=== PATIENT | female | born 1995 | race Caucasian/White ===

== ENCOUNTER 2017-11-04 02:57 | Emergency (ER) | payer BC, SELFPAY ==
[2017-11-04 03:05] VITALS: BP 120/80; PULSE 80; RESP 18; TEMP 36.8; O2SAT 99; BMI 21.9
--- NOTE | 2017-11-04 03:14 | HMH.EDLOEX ---
ED Disposition Clinical Impression: Leg pain, right Disposition: Home, Self-Care Condition on Discharge: Good Instructions: DI for Leg Pain Additional Instructions: will obtain doppler later this am - Critical Care Critical Care Time: No Attestation: On , the high probability of a clinically significant, sudden or life threatening deterioration of the following system(s) required my full and direct attention, intervention and personal management. The time I documented below is in addition to time spent performing reported procedures but includes the following listed in this critical care notation. Medical Decision Making - Medical Records Medical records reviewed: Yes: I reviewed the patient's medical records. Vital Signs: 11/04/17 03:05 Temperature 98.3 F Temperature Source Oral Pulse Rate [Right Radial] 80 Respiratory Rate 18 Blood Pressure [Right Arm] 120/80 Blood Pressure Mean [Right Arm] 93 Blood Pressure Source [Right Arm] Automatic Cuff Blood Pressure Position [Right Arm] Sitting 02 Sat by Pulse Oximetry 99 Oxygen Delivery Method Room Air - Lab Data Lab results reviewed: Yes: I reviewed the patient's lab results. Lab Results 11/04/17 03:30: WBC 6.3, RBC 4.67, Hgb 14.4, Hct 43.4, MCV 93.0, MCH 30.8, MCHC 33.1, RDW 12.1, Plt Count 214, MPV 8.5, Neut % (Auto) 47.8, Lymph % (Auto) 45.2, [place] % (Auto) 5.2, Eos % (Auto) 1.5, Baso % (Auto) 0.3, Neut # (Auto) 3.0, Lymph # (Auto) 2.8, [place] # (Auto) 0.3, Eos # (Auto) 0.1, Baso # (Auto) 0.0 11/04/17 03:30: Urine HCG, Qual Negative Result diagrams: 11/04/17 03:30 Orders (Tests/Meds): ED MEDICATIONS Discontinued Medications Generic Name Dose Route Start Last Admin Trade Name Freq PRN Reason Stop Dose Admin Enoxaparin Sodium 60 mg 11/04/17 03:28 11/04/17 03:51 Lovenox 60mg/0.6ml Syringe SQ 11/04/17 03:29 60 mg ONCE ONE Administration ORDERS Category Date Time Status BMP [Basic Metabolic Panel] Stat Lab 11/04/17 03:30 Received D-Dimer Stat Lab 11/04/17 03:30 Received - Ru Inquiry Pt receiving controlled substance: No Lower Extremity Injury HPI - General Stated Complaint: Pain in right calff Time Seen by Provider: 11/04/17 03:14 Mode of Arrival: Ambulatory Source of Information: Patient, Medical Record - History of Present Illness HPI Narrative: 3 day hx of rt calf pain with no sob -no hx of dvt but uses bcp complaint: other Place: home Severity: moderate - Related Data Home Medications Medication Instructions Recorded Confirmed No Known Home Medications [No 11/04/17 11/04/17 Known Home Medications] Allergies Allergy/AdvReac Type Severity Reaction Status Date / Time chlorhexidine [CHLORHEXIDINE] Allergy Unknown I-RASH Verified 11/04/17 03:15 diphenhydramine Allergy Unknown UNABLE TO Verified 11/04/17 03:15 [From BENADRYL] UR[facility]ATE [facility] History I have reviewed the patient's past medical history: Yes ROS Obtained: Yes All systems reviewed & no additional complaints - Constitutional Constitutional: Denies fever(s) - Eyes Eyes: Denies change in vision - ENT Ears, Nose, Mouth, and Throat: Denies sore throat - Cardiovascular Cardiovascular: Denies chest pain at rest, Denies dyspnea, Denies shortness of breath when lying down - Respiratory Respiratory: No cough, No pain on inspiration - Gastrointestinal Gastrointestingal: Denies: abdominal pain - Musculoskeletal Musculoskeletal: Denies joint pain - Integumentary/Breasts Skin/Breast: Denies rash - Neurologic Neurologic: Denies seizure-like activity Physical Exam - General General appearance: alert, in no apparent distress - Head Head exam: normocephalic - Eye Eye exam: Present: PERRL, EOMI - ENT ENT exam: Absent: mucous membranes moist - Neck Neck exam: Absent: trachea midline - Respiratory Respiratory exam: Absent: respiratory distress - Cardiovascular Cardiovascular exam
--- NOTE | 2017-11-04 03:17 | ED_ITS ---
ED Disposition Clinical Impression: Leg pain, right Disposition: Home, Self-Care Condition on Discharge: Good Instructions: DI for Leg Pain Additional Instructions: will obtain doppler later this am - Critical Care Critical Care Time: No Attestation: On , the high probability of a clinically significant, sudden or life threatening deterioration of the following system(s) required my full and direct attention, intervention and personal management. The time I documented below is in addition to time spent performing reported procedures but includes the following listed in this critical care notation. Medical Decision Making - Medical Records Medical records reviewed: Yes: I reviewed the patient's medical records. Vital Signs: 11/04/17 03:05 Temperature 98.3 F Temperature Source Oral Pulse Rate [Right Radial] 80 Respiratory Rate 18 Blood Pressure [Right Arm] 120/80 Blood Pressure Mean [Right Arm] 93 Blood Pressure Source [Right Arm] Automatic Cuff Blood Pressure Position [Right Arm] Sitting 02 Sat by Pulse Oximetry 99 Oxygen Delivery Method Room Air - Lab Data Lab results reviewed: Yes: I reviewed the patient's lab results. Lab Results 11/04/17 03:30: WBC 6.3, RBC 4.67, Hgb 14.4, Hct 43.4, MCV 93.0, MCH 30.8, MCHC 33.1, RDW 12.1, Plt Count 214, MPV 8.5, Neut % (Auto) 47.8, Lymph % (Auto) 45.2 , [place] % (Auto) 5.2, Eos % (Auto) 1.5, Baso % (Auto) 0.3, Neut # (Auto) 3.0, Lymph # (Auto) 2.8, [place] # (Auto) 0.3, Eos # (Auto) 0.1, Baso # (Auto) 0.0 11/04/17 03:30: Urine HCG, Qual Negative Result diagrams: 11/04/17 03:30 Orders (Tests/Meds): ED MEDICATIONS Discontinued Medications Generic Name Dose Route Start Last Admin Trade Name Freq PRN Reason Stop Dose Admin Enoxaparin Sodium 60 mg 11/04/17 03:28 11/04/17 03:51 Lovenox 60mg/0.6ml Syringe SQ 11/04/17 03:29 60 mg ONCE ONE Administration ORDERS Category Date Time Status BMP [Basic Metabolic Panel] Stat Lab 11/04/17 03:30 Received D-Dimer Stat Lab 11/04/17 03:30 Received - Ru Inquiry Pt receiving controlled substance: No Lower Extremity Injury HPI - General Stated Complaint: Pain in right calff Time Seen by Provider: 11/04/17 03:14 Mode of Arrival: Ambulatory Source of Information: Patient, Medical Record - History of Present Illness HPI Narrative: 3 day hx of rt calf pain with no sob -no hx of dvt but uses bcp complaint: other Place: home Severity: moderate - Related Data Home Medications Medication Instructions Recorded Confirmed No Known Home Medications [No 11/04/17 11/04/17 Known Home Medications] Allergies Allergy/AdvReac Type Severity Reaction Status Date / Time chlorhexidine [CHLORHEXIDINE] Allergy Unknown I-RASH Verified 11/04/17 03:15 diphenhydramine Allergy Unknown UNABLE TO Verified 11/04/17 03:15 [From BENADRYL] UR[facility]ATE [facility] History I have reviewed the patient's past medical history: Yes ROS Obtained: Yes All systems reviewed & no additional complaints - Constitutional Constitutional: Denies fever(s) - Eyes Eyes: Denies change in vision - ENT Ears, Nose, Mouth, and Throat: Denies sore throat - Cardiovascular
--- NOTE | 2017-11-04 03:32 | PC.NURSE ---
RT made aware of venous doppler out patient order. RT to call pt in the morning to schedule an appointment.
--- NOTE | 2017-11-04 03:32 | PC.NURSE ---
dose confirmed with pharmacy for lovenox
[2017-11-04 03:45] LABS: Urine Pregnancy, HCG Qual. Negative (Negative)
[2017-11-04 03:48] LABS: Basophils % 0.3 % (0.1-2.0); Eosinophils # 0.1 K/mm3 (0.0-0.4); Eosinophils % 1.5 % (0.1-12.0); Hematocrit 43.4 % (37.0-47.0); Hemoglobin 14.4 g/dL (12.2-16.2); Lymphocytes # 2.8 K/mm3 (0.7-4.5); Lymphocytes % 45.2 K/mm3 (10-50); Mean Corpuscular HGB Conc 33.1 g/dL (31.8-35.4); Mean Corpuscular Hemoglobin 30.8 pg (27.0-31.2); Mean Platelet Volume 8.5 fl (7.4-10.4); Monocytes # 0.3 K/mm3 (0.1-1.0); Monocytes % 5.2 % (1.7-9.3); Neutrophils % 47.8 % (37.0-80.0); Platelet Count 214 K/mm3 (142-424); Red Blood Count 4.67 M/mm3 (4.20-5.40); Red Cell Distribution Width 12.1 % (11.5-17.5); White Blood Count 6.3 K/mm3 (4.8-10.8)
[2017-11-04 03:54] LABS: Anion Gap 16.8 mEq/L (5-15); Blood Urea Nitrogen 10 mg/dL (7-18); Carbon Dioxide 23 mmol/L (21.0-32.0); Chloride 106 mmol/L (98-107); Creatinine Clearance Estimated 129 mL/min (0-300); Creatinine,Serum 0.62 mg/dL (0.55-1.02); Estimated Glomerular Filt Rate 119 ml/min (>60); GFR (African American) 144 ML/MIN (>60); Glucose 85 mg/dL (74-106); Potassium 3.8 mmoL/L (3.5-5.1); Sodium 142 mmol/L (136-145)
[2017-11-04 04:01] VITALS: BP 122/80; PULSE 80; RESP 18; TEMP 36.8; O2SAT 99
[2017-11-04 04:20] LABS: D-Dimer < 100 (0-400)
== END 2017-11-04 04:01 | disposition home or self-care (01) ==
PROVIDERS: Emergency Provider Emergency Medicine
DX: M79.661 Pain in right lower leg (principal)
CPT/HCPCS: 80048; 81025; 85025; 85378; 96372; 99281; 99282

== ENCOUNTER → 2017-11-04 11:23 | Outpatient (CLI) | payer BC, SELFPAY ==
--- NOTE | 2017-11-04 11:26 | NVE_ITS ---
Venous Exam Indications: 729.5 Pain in limb. IMPRESSIONS 1. There is no evidence of significant Reflux. 2. No evidence of deep or superficial vein thrombosis involving the right lower extremity Right lower extremity venous duplex evaluation. Doppler flow study including spectral analysis, color and xavier scale imaging. Location: Vascular laboratory. Patient status: Outpatient. Tables: Venous flow and imaging: + +-------+ + Location Overall Flow properties + +-------+ + Right common femoral Patent Normal phasicity; spontaneous; normal augmentation; compressible + +-------+ + Right saphenofemoral junction Patent Compressible + +-------+ + Right profunda femoral Patent Compressible + +-------+ + Right femoral Patent Normal phasicity; spontaneous; normal augmentation; compressible + +-------+ + Right greater saphenous Patent Normal phasicity; spontaneous; normal augmentation; compressible + +-------+ + Right popliteal Patent Normal phasicity; spontaneous; normal augmentation; compressible + +-------+ + Right posterior tibial Patent Compressible + +-------+ + Right peroneal Patent Compressible + +-------+ + Right gastrocnemius Patent Compressible + +-------+ + Right soleal Patent Compressible + +-------+ + (Report amended ) Electronically signed by: Adin Mcbride [id number]
== END ==
PROVIDERS: PCP Emergency Medicine; Visit Provider Emergency Medicine
DX: M79.661 Pain in right lower leg (principal)
CPT/HCPCS: 93971

== ENCOUNTER 2017-11-05 20:19 | Emergency (ER) | payer BC, SELFPAY ==
[2017-11-05 20:23] VITALS: BP 135/85; PULSE 90; RESP 16; TEMP 36.8; O2SAT 100; BMI 21.9
--- NOTE | 2017-11-05 21:36 | HMH.EDLOEX ---
ED Disposition Clinical Impression: Leo's cyst of knee Qualifiers: Laterality: right Qualified Code(s): M71.21 - Synovial cyst of popliteal space [Leo], right knee Disposition: Home, Self-Care Condition on Discharge: Good Additional Instructions: see pcp or ortho for follow up Referrals: Jimmie Vogel MD [Primary Care Provider] - - Critical Care Critical Care Time: No Attestation: On 11/05/17, the high probability of a clinically significant, sudden or life threatening deterioration of the following system(s) required my full and direct attention, intervention and personal management. The time I documented below is in addition to time spent performing reported procedures but includes the following listed in this critical care notation. Medical Decision Making Vital Signs: 11/05/17 20:23 Temperature 98.2 F Temperature Source Oral Pulse Rate [Right Brachial] 90 Respiratory Rate 16 Blood Pressure [Right Arm] 135/85 Blood Pressure Mean [Right Arm] 101 Blood Pressure Source [Right Arm] Automatic Cuff Blood Pressure Position [Right Arm] Sitting 02 Sat by Pulse Oximetry 100 Oxygen Delivery Method Room Air - Ru Inquiry Pt receiving controlled substance: No Lower Extremity Injury HPI - General Chief Complaint: Extremity Injury, Lower Stated Complaint: leg pain and swelling, poss blood clot Time Seen by Provider: 11/05/17 21:36 Mode of Arrival: Ambulatory Source of Information: Patient, Medical Record Limitations: No Limitations Description of Symptoms (Recalled from ER Triage Doc. by RN): RIGHT LOWER LEG PAIN AND SWELLING. DOPPLER DONE MONDAY MORNING THAT WAS NEGATIVE FOR DVT - History of Present Illness HPI Narrative: pt with persistant pain behind rt knee - has been seen and had neg doppler - no trauma or swollen jt complaint: other (no injury) Injury: Right: knee Type of Injury: unknown Place: home Severity: mild - Related Data Home Medications Medication Instructions Recorded Confirmed No Known Home Medications [No 11/04/17 11/04/17 Known Home Medications] Allergies Allergy/AdvReac Type Severity Reaction Status Date / Time chlorhexidine [CHLORHEXIDINE] Allergy Unknown I-RASH Verified 11/04/17 03:15 diphenhydramine Allergy Unknown UNABLE TO Verified 11/04/17 03:15 [From BENADRYL] UR[facility] History I have reviewed the patient's past medical history: Yes - *Social History Alcohol Intake: never - Psychiatric History Expresses thoughts of harming self/others: None Suicide Plan Description: No Plan ROS Obtained: Yes All systems reviewed & no additional complaints - Constitutional Constitutional: Denies fever(s) - Eyes Eyes: Denies change in vision - ENT Ears, Nose, Mouth, and Throat: Denies sore throat - Cardiovascular Cardiovascular: Denies chest pain - Respiratory Respiratory: No chest congestion - Gastrointestinal Gastrointestingal: Denies: abdominal pain - Musculoskeletal Musculoskeletal: Reports as per HPI, Denies joint pain, Denies joint swelling, Denies limited range of motion, Reports other (pain behind rt knee ) - Integumentary/Breasts Skin/Breast: Denies rash - Neurologic Neurologic: Denies seizure-like activity Physical Exam - General General appearance: alert, in no apparent distress - Head Head exam: normocephalic - Eye Eye exam: Present: PERRL, EOMI - ENT ENT exam: Present: normal oropharynx - Neck Neck exam: Present: trachea midline - Respiratory Respiratory exam: Absent: respiratory distress - Cardiovascular Cardiovascular exam: Present: regular rate - Abdominal Exam Abdominal exam: Present: soft - Expanded Lower Extremity Exam Right Knee exam: Present: normal inspection, full ROM, other (tender post popiteal fossa but no def bakers cyst) - Neurological Exam Neurological exam: Present: alert, oriented X3, CN II-XII intact - Psychiatric Psychiatric exam: Present: benito
--- NOTE | 2017-11-05 21:39 | ED_ITS ---
ED Disposition Clinical Impression: Leo's cyst of knee Qualifiers: Laterality: right Qualified Code(s): M71.21 - Synovial cyst of popliteal space [Leo], right knee Disposition: Home, Self-Care Condition on Discharge: Good Additional Instructions: see pcp or ortho for follow up Referrals: Jimmie Vogel MD [Primary Care Provider] - - Critical Care Critical Care Time: No Attestation: On 11/05/17, the high probability of a clinically significant, sudden or life threatening deterioration of the following system(s) required my full and direct attention, intervention and personal management. The time I documented below is in addition to time spent performing reported procedures but includes the following listed in this critical care notation. Medical Decision Making Vital Signs: 11/05/17 20:23 Temperature 98.2 F Temperature Source Oral Pulse Rate [Right Brachial] 90 Respiratory Rate 16 Blood Pressure [Right Arm] 135/85 Blood Pressure Mean [Right Arm] 101 Blood Pressure Source [Right Arm] Automatic Cuff Blood Pressure Position [Right Arm] Sitting 02 Sat by Pulse Oximetry 100 Oxygen Delivery Method Room Air - Ru Inquiry Pt receiving controlled substance: No Lower Extremity Injury HPI - General Chief Complaint: Extremity Injury, Lower Stated Complaint: leg pain and swelling, poss blood clot Time Seen by Provider: 11/05/17 21:36 Mode of Arrival: Ambulatory Source of Information: Patient, Medical Record Limitations: No Limitations Description of Symptoms (Recalled from ER Triage Doc. by RN): RIGHT LOWER LEG PAIN AND SWELLING. DOPPLER DONE MONDAY MORNING THAT WAS NEGATIVE FOR DVT - History of Present Illness HPI Narrative: pt with persistant pain behind rt knee - has been seen and had neg doppler - no trauma or swollen jt complaint: other (no injury) Injury: Right: knee Type of Injury: unknown Place: home Severity: mild - Related Data Home Medications Medication Instructions Recorded Confirmed No Known Home Medications [No 11/04/17 11/04/17 Known Home Medications] Allergies Allergy/AdvReac Type Severity Reaction Status Date / Time chlorhexidine [CHLORHEXIDINE] Allergy Unknown I-RASH Verified 11/04/17 03:15 diphenhydramine Allergy Unknown UNABLE TO Verified 11/04/17 03:15 [From BENADRYL] URINATE [facility] History I have reviewed the patient's past medical history: Yes - *Social History Alcohol Intake: never - Psychiatric History Expresses thoughts of harming self/others: None Suicide Plan Description: No Plan ROS Obtained: Yes All systems reviewed & no additional complaints - Constitutional Constitutional: Denies fever(s) - Eyes Eyes: Denies change in vision - ENT Ears, Nose, Mouth, and Throat: Denies sore throat - Cardiovascular Cardiovascular: Denies chest pain - Respiratory Respiratory: No chest congestion - Gastrointestinal Gastrointestingal: Denies: abdominal pain - Musculoskeletal Musculoskeletal: Reports as per HPI, Denies joint pain, Denies joint swelling, Denies limited range of motion, Reports other (pain behind rt knee ) - Integumentary/Breasts Skin/Breast: Denies rash - Neurologic Neurologic: Denies seizure-like activity Physical Exam - General General a
[2017-11-05 21:49] VITALS: BP 00/00; PULSE 0; RESP 0; TEMP -17.7; TEMP 0
== END 2017-11-05 21:49 | disposition home or self-care (01) ==
PROVIDERS: Emergency Provider Emergency Medicine; PCP Emergency Medicine
DX: M71.21 Synovial cyst of popliteal space [Baker], right knee (principal)
CPT/HCPCS: 99281

== ENCOUNTER → 2018-02-21 08:59 | Outpatient (CLI) | payer BC, SELFPAY | PROVIDERS: PCP Nurse Practitioner Family; Visit Provider Internal Medicine | DX: R07.89 Other chest pain (principal); R06.02 Shortness of breath; R94.31 Abnormal electrocardiogram [ECG] [EKG]; R00.2 Palpitations; I51.7 Cardiomegaly | CPT/HCPCS: 93017; 93306 ==

== ENCOUNTER 2018-04-19 14:10 | Observation (INO) ==
[2018-04-19 14:39] LABS: Basophils % 0.3 % (0.1-2.0); Eosinophils % 0.2 % (0.1-12.0); Hematocrit 42.3 % (37.0-47.0); Hemoglobin 14.2 g/dL (12.2-16.2); Lymphocytes # 2.2 K/mm3 (0.7-4.5); Lymphocytes % 22.7 K/mm3 (10-50); Mean Corpuscular HGB Conc 33.5 g/dL (31.8-35.4); Mean Corpuscular Hemoglobin 31.3 pg (27.0-31.2); Mean Corpuscular Volume 93.3 fl (81-99); Mean Platelet Volume 7.6 fl (7.4-10.4); Monocytes # 0.4 K/mm3 (0.1-1.0); Monocytes % 3.9 % (1.7-9.3); Neutrophils # 7.2 K/mm3 (1.8-7.8); Neutrophils % 72.9 % (37.0-80.0); Platelet Count 260 K/mm3 (142-424); Red Blood Count 4.53 M/mm3 (4.20-5.40); Red Cell Distribution Width 12.3 % (11.5-17.5); White Blood Count 9.8 K/mm3 (4.8-10.8)
[2018-04-19 14:52] LABS: Albumin Level 4.2 gm/dL (3.4-5.0); Albumin/Globulin Ratio 1.2 (1.1-1.8); Anion Gap 14.7 mEq/L (5-15); Bilirubin,Total 0.8 mg/dL (0.2-1.0); Calcium 9.2 mg/dL (8.5-10.1); Globulin 3.5 gm/dl (1.3-3.2); Potassium 3.7 mmoL/L (3.5-5.1); Total Protein,Serum 7.7 gm/dL (6.4-8.2)
--- NOTE | 2018-04-19 15:08 | Emergency Department Note ---
ED Disposition Clinical Impression: Dehydration, UTI (urinary tract infection), First trimester , Hyperemesis Disposition: Still a Patient Condition on Discharge: Fair Instructions: DI for Diarrhea and Traveler's Diarrhea -- Adult, DI for Diarrhea and Traveler's Diarrhea -- Child, DI for Nausea -- Adult, DI for Nausea -- Child Additional Instructions: She will be admitted Dr. Galeas's service for IV fluids IV antibiotics and IV antiemetics. Referrals: Nito Engel APRN [Primary Care Provider] - - Critical Care Critical Care Time: No Attestation: On 04/19/18, the high probability of a clinically significant, sudden or life threatening deterioration of the following system(s) required my full and direct attention, intervention and personal management. The time I documented below is in addition to time spent performing reported procedures but includes the following listed in this critical care notation. Medical Decision Making - Ru Inquiry Pt receiving controlled substance: No Ru was queried for this patient: No Vital Signs: 04/19/18 14:15 Temperature 98.2 F Temperature Source Oral Pulse Rate [Left Radial] 98 H Respiratory Rate 18 Blood Pressure [Right Arm] 116/62 Blood Pressure Mean [Right Arm] 80 Blood Pressure Source [Right Arm] Automatic Cuff Blood Pressure Position [Right Arm] Sitting 02 Sat by Pulse Oximetry 98 Oxygen Delivery Method Room Air - Lab Data Lab Results 04/19/18 14:30: WBC 9.8, RBC 4.53, Hgb 14.2, Hct 42.3, MCV 93.3, MCH 31.3 H, MCHC 33.5, RDW 12.3, Plt Count 260, MPV 7.6, Neut % (Auto) 72.9, Lymph % (Auto) 22.7, [place] % (Auto) 3.9, Eos % (Auto) 0.2, Baso % (Auto) 0.3, Neut # (Auto) 7.2 , Lymph # (Auto) 2.2, [place] # (Auto) 0.4, Eos # (Auto) 0.0, Baso # (Auto) 0.0 04/19/18 14:30: Sodium 139, Potassium 3.7, Chloride 105, Carbon Dioxide 23, Anion Gap 14.7, BUN 6 L, Creatinine 0.52 L, Estimated Creat Clear 151, Estimated GFR 146, Est GFR ( Amer) 177, Glucose 85, Calcium 9.2, Total Bilirubin 0.8, AST 8 L, ALT 22, Alkaline Phosphatase 69, Total Protein 7.7, Albumin 4.2, Globulin 3.5 H, Albumin/Globulin Ratio 1.2 04/19/18 16:25: Urine Color Yellow, Urine Appearance Clear, Urine pH 6.0, Ur Specific [place] 1.020, Urine Protein Negative, Urine Glucose (UA) Negative, Urine Ketones 3+, Urine Blood 1+, Urine Nitrate Negative, Urine Bilirubin Negative, Urine Urobilinogen 1.0, Ur Leukocyte Esterase Negative, Urine RBC 3-5 , Urine WBC None, Ur Squamous Epith Cells Occasional, Urine Bacteria Trace, Urine Mucus 3+ Result diagrams: 04/19/18 14:30 04/19/18 14:30 Orders (Tests/Meds): ED MEDICATIONS Generic Name Dose Route Start Last Admin Trade Name Freq PRN Reason Stop Dose Admin Ceftriaxone Sodium 1 gm/ 50 mls @ 100 mls/hr 04/19/18 15:15 04/19/18 16:16 Sodium Chloride IV 05/03/18 15:14 100 mls/hr Q24H MARIAMA Administration Protocol Discontinued Medications Generic Name Dose Route Start Last Admin Trade Name Freq PRN Reason Stop Dose Admin Acetaminophen 650 mg 04/19/18 14:51 04/19/18 16:14 Acetaminophen 650mg Suppository RC 04/19/18 14:52 650 mg ONCE ONE Administration Sodium Chloride 1,000 mls @ 999 mls/hr 04/19/18 14:30 04/19/18 14:25 Sod Chlor 0.9% 1000ml Bag IV 04/19/18 15:30 999 mls/hr .[id number] MARIAMA Administration Promethazine HCl 12.5 mg 04/19/18 14:51 04/19/18 16:14 Phenergan 25mg/Ml 1ml Vial IV 04/19/18 14:52 12.5 mg ONCE ONE Administration Sodium Chloride 25 ml 04/19/18 14:51 04/19/18 16:14 Sod Chlor 0.9% 25ml Bag IV 04/19/18 14:52 25 ml ONCE ONE Administration Medical Decision Narrative: She received IV fluids anti-emetics was unable to tolerate p.o. intake her urine was +3+ ketones, I spoke with her about admission and she was agreeable. Called Dr. Galeas who agreed to admit the patient for IV fluid therapy antiemetic therapy and IV antibiotics. Nausea/Vomiting/Diarrhea HPI - General Chief complaint: Nausea/Vomiting/Diarrhea Stated complaint: vomiting over 24 hr 7 weeks s Time Seen by Provider: 04/19/18 14:30 Mode of Arrival: Ambulatory Limitations: No Limitations Description of Symptoms (Recalled from ER Triage Doc. by RN): PT states that she is unable to keep any fluids or soilds down for over 24 hours due to vomiting. Feeling nauseated and has headache - History of Present Illness HPI Narrative: 22 years old white female 4 para 3 A0 old delivered by . She is 7 weeks and has been experiencing morning sickness and vomited once in the morning. Since yesterday she has been having hyperemesis gravidarum and vomited 12 times was unable to keep liquids food or medications. She was seen by her bell maker in [place] 3 days ago and was diagnosed with UTI given a prescription for amoxicillin but she has been unable to keep it since yesterday. She denies having fever chills hematemesis coffee-ground emesis melanotic stool or bleeding per rectum. She denies having abdominal pain or diarrhea, he denies having dysuria hematuria or frequency. MD complaint: nausea, vomiting Onset (ago): hour(s) (Worse since yesterday) Description of Vomiting: food contents, watery Associated Abdominal Pain: No Relieving factors: none Exacerbating factors: none Associated symptoms: denies other symptoms - Related Data Home Medications Medication Instructions Recorded Confirmed Vit37/Iron/Folic Acid 1 each PO DAILY 04/19/18 04/19/18 [Prenata Chewable Tablet] Allergies Allergy/AdvReac Type Severity Reaction Status Date / Time chlorhexidine [CHLORHEXIDINE] Allergy Unknown I-RASH Verified 02/13/18 13:20 diphenhydramine Allergy Unknown UNABLE TO Verified 02/13/18 13:20 [From BENADRYL] URINATE [facility] History I have reviewed the patient's past medical history: Yes Medical History: Denies:: Diabetes Mellitus Type 1, Diabetes Mellitus Type 2 Other Medical History: Reports: Other Comment: Leo's cyst of right knee Other Surgeries: Yes: (x3), Hernia Repair (x 2 ), Other Amputation: No Fractures: No Comment: dental surgery, Cyst off left ankle - Social History Smoking Status: Never smoker Alcohol Intake: never Substance Use Type: denies use Occupational Status: student Housing: house Household Members: spouse, children - Psychiatric History Expresses thoughts of harming self/others: None Suicide Plan Description: No Plan Family Hx:: Heart Attack, Hypertension, Coronary Artery Disease ROS Obtained: Yes All systems reviewed & no additional complaints Physical Exam - General General appearance: alert, in no apparent distress - Head Head exam: atraumatic, normocephalic, normal inspection - Eye Eye exam: Present: normal appearance, PERRL, EOMI. Absent: scleral icterus, nystagmus - ENT ENT exam: Present: normal exam, normal oropharynx, mucous membranes moist, TM's normal bilaterally, normal external ear exam - Neck Neck exam: Present: normal inspection, full ROM, trachea midline. Absent: tenderness, meningismus, lymphadenopathy - Chest Chest inspection: Present: normal inspection, symmetric chest wall rise. Absent : tenderness - Respiratory Respiratory exam: Present: normal lung sounds bilaterally. Absent: respiratory distress - Cardiovascular Cardiovascular exam: Present: regular rate, normal rhythm, normal heart sounds. Absent: JVD - Abdominal Exam Abdominal exam: Present: soft, normal bowel sounds, other (He did have stria prior pregnancies no abdominal pain no guarding no rigidity noted no focal tenderness no rebound no cross tenderness.). Absent: distention, tenderness, guarding, rebound, rigidity - Extremities Exam Extremities exam: Present: normal inspection, full ROM, normal capillary refill. Absent: tenderness, calf tenderness - Back Exam Back exam: Present: normal inspection. Absent: tenderness, CVA tenderness (R), CVA tenderness (L) - Neurological Exam Neurological exam: Present: alert, oriented X3, CN II-XII intact, motor sensory deficit, reflexes normal - Psychiatric Psychiatric exam: Present: normal affect, normal mood - Skin Skin exam: Present: warm, dry, intact, normal color - Lymphatic Lymphatic Findings: no adenopathy
[2018-04-19 16:34] LABS: Appearance,Urine CLEAR (Clear); Bilirubin,Urine Negative (Negative); Blood, Urine 1+ (Negative); Color,Urine YELLOW (Yellow); Glucose,Urine (UA) Negative (Negative); Ketones,Urine 3+ (Negative); Leukocyte Esterase,Urine Negative (Negative); Protein,Urine Negative (Negative)
[2018-04-19 16:51] LABS: Bacteria,Urine Trace /lpf; Mucus,Urine 3+ /lpf; Squamous Epithelial Cell,Urine Occasional #/hpf (0-5)
[2018-04-19 16:54] LABS: Microscopic, Urine URINE MICROSCOPIC (MICROSCOPIC)
--- NOTE | 2018-04-19 18:23 | History & Physical Report ---
OB - H&P: HPI Antepartum - History of Present Illness Chief complaint: Nausea vomiting and dehydration. History of present illness: She is a 22-year-old 4 para 3 who has nausea vomiting and dehydration. She is just 7 weeks gestational age. She also has a urinary tract infection. She has not been able to keep anything down for the last couple of days. She has named able to keep down water. As result of that she is dehydrated. We will admit her for rehydration. - History of Present Criteria for establishing EDC:: based on LMP only care: good care Ultrasounds: normal 1st trimester US Obstetrical complications: none Medical complications: gastrointestinal H History I have reviewed the patient's past medical history: Yes Medical History: Denies:: Diabetes Mellitus Type 1, Diabetes Mellitus Type 2 Other Medical History: Reports: Other Other Surgeries: Yes: (x3), Hernia Repair (x 2 ), Other Amputation: No Fractures: No - *Social History Smoking Status: Never smoker Alcohol Intake: never Substance Use Type: denies use Occupational Status: student Housing: house Household Members: spouse, children - Psychiatric History Expresses thoughts of harming self/others: None Suicide Plan Description: No Plan *Family Hx:: Heart Attack, Hypertension, Coronary Artery Disease Review of Systems - Review of Systems Review of systems:: pertinent systems reviewed and negative unless documented below - Constitutional Reports anorexia - *Gastrointestinal Reports nausea, Reports vomiting Meds Home Medications Medication Instructions Recorded Confirmed Type Vit37/Iron/Folic Acid 1 each PO DAILY 04/19/18 04/19/18 History [Prenata Chewable Tablet] Allergies Allergy/AdvReac Type Severity Reaction Status Date / Time chlorhexidine [CHLORHEXIDINE] Allergy Unknown I-RASH Verified 02/13/18 13:20 diphenhydramine Allergy Unknown UNABLE TO Verified 02/13/18 13:20 [From BENADRYL] URINATE OB - H&P: Exam - Physical Exam Vital signs: Temp Pulse Resp BP Pulse Ox 98.2 F 98 H 18 116/62 98 04/19/18 14:15 04/19/18 14:15 04/19/18 14:15 04/19/18 14:15 04/19/18 14:15 - Constitutional no acute distress - Routine HEENT Exam Head: Present: normocephalic - Routine Respiratory Exam Comments: She is breathing well and not using any accessory muscles. OB - Results - Labs Labs: Short CBC 04/19/18 Range/Units 14:30 WBC 9.8 (4.8-10.8) K/mm3 Hgb 14.2 (12.2-16.2) g/dL Hct 42.3 (37.0-47.0) % Plt Count 260 (142-424) K/mm3 BMP 04/19/18 14:30 Sodium 139 Potassium 3.7 Chloride 105 Carbon Dioxide 23 BUN 6 L Creatinine 0.52 L Glucose 85 Calcium 9.2 Liver Function 04/19/18 Range/Units 14:30 Total Bilirubin 0.8 (0.2-1.0) mg/dL AST 8 L (15-37) U/L ALT 22 (12-78) U/L Alkaline Phosphatase 69 (46-116) U/L Albumin 4.2 (3.4-5.0) gm/dL Urine 04/19/18 Range/Units 16:25 Urine Color Yellow (Yellow) Urine Appearance Clear (Clear) Urine pH 6.0 (5.0-8.5) Ur Specific [place] 1.020 (1.005-1.030) Urine Protein Negative (Negative) Urine Glucose (UA) Negative (Negative) OB - A/P Antepartum (1) Dehydration Current visit: Yes Status: Acute (2) First trimester Current visit: Yes Status: Acute (3) Hyperemesis Current visit: Yes Status: Acute - Additional Plan Additional Information:: We will admit her for rehydration. We will start diclegis. We will give her MVI as well. She will be followed up by Dr. Swift in the morning since I am going out of town.
--- NOTE | 2018-04-20 07:33 | Pharmacy Consult Notes ---
[facility] Pharmacy VTE Monitoring - Patient Demographics Admission date: 04/19/18 Report Date: 04/20/18 Time: 07:33 Allergies/Adverse Reactions: Patient Allergies chlorhexidine [CHLORHEXIDINE] Allergy (Unknown, Verified 02/13/18 13:20) I-RASH diphenhydramine [From BENADRYL] Allergy (Unknown, Verified 02/13/18 13:20) UNABLE TO URINATE Height: 1.63 m Weight: 56.699 kg Patient Problems: Current Active Problems Dehydration (Acute) UTI (urinary tract infection) (Acute) First trimester (Acute) Hyperemesis (Acute) - VTE Risk Labs: VTE Related Lab Results Hgb 14.2 g/dL (12.2-16.2) 04/19/18 14:30 Hct 42.3 % (37.0-47.0) 04/19/18 14:30 Plt Count 260 K/mm3 (142-424) 04/19/18 14:30 BUN 6 mg/dL (7-18) L 04/19/18 14:30 Creatinine 0.52 mg/dL (0.55-1.02) L 04/19/18 14:30 Estimated Creat Clear 151 mL/min (0-300) 04/19/18 14:30 Was VTE Risk Assessment Performed: Yes VTE Score: 0 VTE Risk Level: Very Low Risk - Prophylaxis VTE Prophylaxis Ordered?: Yes Types of VTE Prophylaxis: TEDS Knee High Location of Applied Device: Bilateral Lower Extremeties - VTE Diagnosis Confirmed Treatment or plan recommended: Continue Current Treatment
--- NOTE | 2018-04-20 14:35 | Discharge Summary ---
General - General Admission date:: 04/19/18 Discharge date: 04/20/18 HPI HPI: [address] Deidre Guzmán Approximately 7 wks with hyperemesis gravidarum admitted for IV fluids and antiemetics Doing well and ready for discharge Tolerating diet and po meds No new complaints Hospital Course Hospital Course: as per HPI Objective Vital signs: Temp Pulse Resp BP Pulse Ox 98.8 F 68 16 145/63 97 04/20/18 08:00 04/20/18 08:00 04/20/18 08:00 04/20/18 08:00 04/20/18 08:00 no acute distress - *Routine Respiratory Exam Absent: respiratory distress - *Routine Cardiovascular Exam Absent: tachycardia - *Routine Abdominal Exam Present: soft. Absent: tenderness, distended - *Routine Extremities Exam Absent: edema - Routine Back/Spine/Pelvis Exam Back/Spine: Absent: CVA tenderness - *Routine Skin Exam Absent: rash - *Routine Neurological Exam Present: alert, oriented X3 - Routine Psychiatric Exam Present: normal affect. Absent: depressed, anxious Results Labs on day of discharge: Labs from last 24 hours 04/19/18 04/19/18 04/19/18 16:25 14:30 14:30 WBC 9.8 RBC 4.53 Hgb 14.2 Hct 42.3 MCV 93.3 MCH 31.3 H MCHC 33.5 RDW 12.3 Plt Count 260 MPV 7.6 Neut % (Auto) 72.9 Lymph % (Auto) 22.7 [place] % (Auto) 3.9 Eos % (Auto) 0.2 Baso % (Auto) 0.3 Neut # (Auto) 7.2 Lymph # (Auto) 2.2 [place] # (Auto) 0.4 Eos # (Auto) 0.0 Baso # (Auto) 0.0 Sodium 139 Potassium 3.7 Chloride 105 Carbon Dioxide 23 Anion Gap 14.7 BUN 6 L Creatinine 0.52 L Estimated Creat Clear 151 Estimated GFR 146 Est GFR ( Amer) 177 Glucose 85 Calcium 9.2 Total Bilirubin 0.8 AST 8 L ALT 22 Alkaline Phosphatase 69 Total Protein 7.7 Albumin 4.2 Globulin 3.5 H Albumin/Globulin Ratio 1.2 Urine Color Yellow Urine Appearance Clear Urine pH 6.0 Ur Specific [place] 1.020 Urine Protein Negative Urine Glucose (UA) Negative Urine Ketones 3+ Urine Blood 1+ Urine Nitrate Negative Urine Bilirubin Negative Urine Urobilinogen 1.0 Ur Leukocyte Esterase Negative Urine RBC 3-5 Urine WBC None Ur Squamous Epith Cells Occasional Urine Bacteria Trace Urine Mucus 3+ DS: Diagnosis - Discharge Diagnosis (1) Dehydration Status: Acute (2) First trimester Status: Acute (3) Hyperemesis Status: Acute Discharge Plan - Patient Discharge Instructions ACTIVITY: Continue current activity DIET: regular diet - Follow up Plan Unknown provider or service follow up:: 04/20/18 14:34 Dr. Jiang ([place]) Disposition: Home, Self-Nursing Home Medications: Home Medications Medication Instructions Recorded Confirmed Type Vit37/Iron/Folic Acid 1 each PO DAILY 04/19/18 04/19/18 History [Prenata Chewable Tablet] Prescriptions/Medication Reconciliation: New Promethazine HCl [Phenergan 25mg/mL 1mL vial] 12.5 mg PO Q6 PRN #30 tab PRN Reason: Nausea And Vomiting Doxylamine/Pyridoxine HCl [Diclegis 10mg-10mg tablet] 1 tab PO BID #30 tablet. Continue Vit37/Iron/Folic Acid [Prenata Chewable Tablet] 1 each PO DAILY
== END 2018-04-20 15:11 | disposition home or self-care (01) ==
LOC: OB 14:10 → ER 14:10 → 2ND 18:21
PROVIDERS: ADMIT Nurse Practitioner Obstetrics & Gynecology; ATTEND Nurse Practitioner Obstetrics & Gynecology
CPT/HCPCS: 80053; 81001; 85025; 96365; 96375; 99284; G0378

== ENCOUNTER → 2019-06-07 14:16 | Outpatient (CLI) | payer BC, SELFPAY ==
--- NOTE | 2019-06-07 14:17 | CA_ITS ---
APPROVED REPORT Exam: Exercise Treadmill Technologist: Ben Norton, Ht: 5 ft 4 in Wt: 153 lbs BSA: 1.75 m2 HR: 93 bpm BP: 148/70 mmHg Indications: Chest pain Medical History Medical History: CHEST PAIN Medications: NONE Cardiac Risk Factors: FHX of CAD Stress Test Details Test: Danielle HR Resting HR: 104 bpm Max Heart Rate (APMHR): 195 bpm Max HR Achieved: 183 bpm Target HR (85% APMHR): 165 bpm % of APMHR: 93 Recovery HR: 134 bpm BP Resting BP: 135.0/90.0 mmHg Max BP: 161.0/93.0 mmHg Recovery BP: 131.0/91.0 mmHg ECG Resting ECG: SINUS RHYTHM ST Change: Nondiagnostic resting ST abnormalities Clinical Exercise duration: 09:37 min Highest Stage Achieved: Exercise capacity: 10.1 METs Stress ECG Conclusion DANIELLE PROTOCOL COMPLTED. EXERCISED 09:37. METS = 10.1. MAX BP 161/93. MAX HEART RATE 183 BPM. STOPPED DUE TO LEG FATIGUE. MAX HEART RATE 183BPM WHICH IS 94% OF PM FOR AGE. MAX BP 161/93. METS = 10.1. TEST STOPPED DUE TO LEG FATIGUE. NO CHEST PAIN OR SOA. + LEG FATIGUE RESOLVING IN RECOVERY. NO ECTOPY. LESS THAN 1.5MM ST DEPRESSION. GOOD EXERCISE CAPACITY. APPROPRIATE BP RESPONSE. NO ECTOPY NOTED. LESS THAN 1.5MM ST DEPRESSION. normal GXT Test Summary RECOVERY 04:00 0.0 0.0 109 . 130/ 76 . . REST . . . . . . . Standing REST 12:43 0.0 0.0 104 . 135/ 90 . . Stage 1 01:00 10.0 1.7 115 . . . . Stage 1 02:00 10.0 1.7 130 . . . . Stage 1 03:00 10.0 1.7 132 . 146/ 89 . . Stage 2 01:00 12.0 2.5 138 . . . . Stage 2 02:00 12.0 2.5 149 . . . . Stage 2 03:00 12.0 2.5 156 . 158/ 94 . . Stage 3 01:00 14.0 3.4 161 . . . . Stage 3 02:00 14.0 3.4 168 . . . . Stage 3 03:00 14.0 3.4 178 . . . . Stage 4 00:37 16.0 4.2 182 . 161/ 93 . Stop exercise at 09:37 RECOVERY 01:00 0.0 0.0 154 . . . . RECOVERY 02:00 0.0 0.0 134 . 131/ 91 . . RECOVERY 03:00 0.0 0.0 114 . 131/ 91 . . RECOVERY 04:00 0.0 0.0 109 . 130/ 76 . . RECOVERY 04:06 0.0 0.0 111 . 130/ 76 . . Electronically signed by : Srinath Ricci, 06/07/2019 17:59:09
--- NOTE | 2019-06-07 14:18 | XR_ITS ---
PROCEDURE: XR CHEST 2V CLINICAL HISTORY: chest pain COMPARISON: CXR CHEST(2 VIEWS-NOT PORTABLE) from 03/23/2016 CTAC CTA-CHEST from 03/23/2016 FINDINGS: The cardiomediastinal silhouette and pulmonary vascularity are within normal limits. The lungs are clear without infiltrates, suspicious nodules, or pleural effusions. No acute bony abnormalities. IMPRESSION: No acute findings. Dictated by: Adin Mcbride MD 06/07/2019 14:47 Electronically signed by Adin Mcbride MD in [place] 06/07/2019 14:47
[2019-06-07 16:24] LABS: Free T4 (Free Thyroxine) 0.91 ng/dl (0.76-1.46); Thyroid Stimulating Hormone 1.77 uIU/ml (0.358-3.740)
== END ==
PROVIDERS: PCP Nurse Practitioner Family; Visit Provider Urology
DX: I51.7 Cardiomegaly (principal); R00.2 Palpitations; R06.02 Shortness of breath; R07.89 Other chest pain; R94.31 Abnormal electrocardiogram [ECG] [EKG]
CPT/HCPCS: 36415; 71046; 84439; 84443; 93017

== ENCOUNTER → 2019-07-25 14:25 | Outpatient (CLI) | payer BC, SELFPAY | PROVIDERS: PCP Emergency Medicine; Visit Provider Nurse Practitioner Family | DX: R07.9 Chest pain, unspecified (principal); R06.02 Shortness of breath; R00.2 Palpitations; R94.31 Abnormal electrocardiogram [ECG] [EKG]; R55 Syncope and collapse | CPT/HCPCS: 93225 ==

== ENCOUNTER → 2019-08-01 06:44 | Outpatient (CLI) | payer BC, SELFPAY ==
--- NOTE | 2019-08-01 06:45 | CT_ITS ---
PROCEDURE: CT ANGIO CORONARY ARTERY CLINCAL INDICATION: chest pain/palps Chest pain, palpitations COMPARISON: XR CHEST 2V from 06/07/2019 TECHNIQUE: IV Contrast: 150 mL Optiray 350 Axial images obtained with sagittal and coronal reformats. All CT scans at the facility use one or more dose reduction, viz: automated exposure control, ma/kV adjustment per patient size (including targeted exams where dose is matched to indication, i.e. head), or iterative reconstruction technique. Gated helical acquisition obtained per routine CT coronary artery technique. 100 mg p.o. metoprolol used for obtaining bradycardia. Patient's pulse averaged upper 50s during the exam. No complications. 2 runs were performed. FINDINGS: There was excellent opacification of the coronary arteries. The left main coronary artery and LAD have an unremarkable appearance. There is co dominant supply to the inferior wall via the LAD and a prominent circumflex artery. The circumflex is prominent with prominent given rise to the PDA and posterolateral branch to the left ventricle.. The RCA is small. Motion artifact and the small size of the are CA limits evaluation. No occlusive changes are evident. No sub intimal soft plaque apparent. No myocardial bridging. The aorta is normal in caliber. The origin of the right coronary artery and the left main are as expected. There is a tricuspid aortic valve. The heart is normal in size IMPRESSION: 1. Negative CTA of the coronary arteries. 2. Anatomic variant includes circumflex artery giving rise to the PDA with a dual supply to the inferior intraventricular septum by the PDA and lad with a small RCA Dictated by: Adin Mcbride MD 08/02/2019 11:59 Electronically signed by Adin Mcbride MD in [place] 08/02/2019 11:59
--- NOTE | 2019-08-01 06:45 | CA_ITS ---
APPROVED REPORT EXAM: Comprehensive 2D, Doppler, and color-flow Echocardiogram Electronic Lab Technician: Dipti Larsen RT(R) Ht: 5 ft 4 in Wt: 151lbs BSA: 1.74 BP: 135/94 mmHg Indications: CP, Palpitations, Fatigue, near syncope, SOB, cardiomegaly, dizziness 2D Dimensions Aortic Root 2.30 cm F: 2.7 - 3.3 Left Atrium 2.20 cm F: 2.7 - 3.8 LVOT 1.69 cm (M/F) 1.5-2.5 M-Mode Dimensions RVDd 2.29 cm (0.9-2.6) LVDd 4.46 cm (3.5-5.7) LVDs 3.21 cm (3.5-5.7) IVSd 0.70 cm (0.6-1.1) PWd 0.76 cm (0.6-1.1) EF (Teich) 54.40% FS 28.00% EDV (Teich) 90.50 mL ESV (Teich) 41.30 mL LV Diastology E/A Ratio 2.94 Mitral Valve MV A Velocity 29.00 (40-130 cm/s) Left Ventricle Left atrium is normal size, left ventricle is normal size, there is no concentric left ventricular hypertrophy, visually estimated ejection fraction 55% with no regional wall motion abnormality. Diastolic parameters are within normal range. Right Ventricle Right atrium and right ventricular normal size and contractility. Aortic Valve Aortic valve is grossly normal, there is no aortic stenosis or aortic insufficiency. Mitral Valve Mitral valve is grossly normal, there is mild mitral regurgitation. Tricuspid Valve Tricuspid valve is grossly normal, there is mild tricuspid regurgitation. Pulmonic Valve Pulmonic valve is poorly visualized. Great Vessels Aortic root is normal size. Pericardium No significant pericardial effusion noted. Conclusion 1. Normal left ventricular size, preserved left ventricular systolic function, visually estimated ejection fraction 55% with no regional wall motion abnormality. Diastolic parameters are within normal range. 2. Mild mitral and tricuspid regurgitation. 3. No significant pericardial effusion noted. Electronically signed by : Srinath Ricci, 08/02/2019 13:27:26
--- NOTE | 2019-08-01 08:33 | PC.NURSE ---
0700- 109/68, p:80, Sao2 99%. #18 angio started in L AC. Radiology notified of pt'scurrent v/s. 0720- 50mg Metoprolol given po per Dr. Mcbride's order. Pt made comfortable (lights dimmed, warm blanket applied, head of stretcher reclined). Will continue to monitor. 0750- 108/65, p:71, Sao2 97%. Radiology notified. 0753- Metoprolol 50mg po given as ordered. #22 Angio started per pt's R hand. Pt made comfortable. Will continue to monitor. 0820- 117/74, p:60, sao2 98%. Radiology notified. 0830- Pt taken to CT by Radiology per stretcher.
== END ==
PROVIDERS: PCP Emergency Medicine; Visit Provider Internal Medicine
DX: R07.9 Chest pain, unspecified (principal); R00.2 Palpitations; I51.7 Cardiomegaly; R06.02 Shortness of breath; R55 Syncope and collapse; R94.31 Abnormal electrocardiogram [ECG] [EKG]
CPT/HCPCS: 75574; 93306; Q9967

== ENCOUNTER → 2020-02-07 09:10 | Outpatient (CLI) | payer BC, SELFPAY ==
--- NOTE | 2020-02-07 09:17 | US_ITS ---
PROCEDURE: US KIDNEY CLINICAL INDICATION: HEMATURIA COMPARISON: ABDPELW/O CT ABD PELVIS W/O CONTRAST from 11/04/2015 FINDINGS: The right kidney measures 10.1 x 5.7 x 5.8 cm and shows mild pyelocaliectasis. The left kidney measures 10.5 x 5.5 x 4.6 cm and appears sonographically normal. There is normal vascularity to both kidneys. There is a nonshadowing echo within the gallbladder likely due to a cholesterol polyp. IMPRESSION: Minor pyelo caliectasis right kidney, grossly normal appearing left kidney, probable cholesterol gallbladder polyp is noted Dictated by: Dr. Abhilash Cline MD 02/07/2020 11:[address] Abhilash Cline MD in [place] 02/07/2020 11:15
== END ==
PROVIDERS: PCP Emergency Medicine; Visit Provider Family Medicine
DX: R31.21 Asymptomatic microscopic hematuria (principal)
CPT/HCPCS: 76770

== ENCOUNTER → 2020-02-21 10:53 | Outpatient (CLI) | payer BC, SELFPAY ==
--- NOTE | 2020-02-21 10:53 | CT_ITS ---
PROCEDURE: CT ABDOMEN PELVIS WO CON CLINICAL INDICATION: hematuria Back pain with hematuria COMPARISON: ABDPELW/O CT ABD PELVIS W/O CONTRAST from 11/04/2015 TECHNIQUE: Axial images obtained with sagittal and coronal reformats. All CT scans at the facility use one or more dose reduction, viz: automated exposure control, ma/kV adjustment per patient size (including targeted exams where dose is matched to indication, i.e. head), or iterative reconstruction technique. FINDINGS: Lung bases are clear. The liver, spleen, adrenal glands, pancreas, and kidneys have an unremarkable appearance. No renal or ureteral calculi. No hydronephrosis. There is a mild amount of retained colonic feces. No intestinal obstruction or free air. No evidence of appendicitis. The uterus is anteverted and somewhat bulky. Right adnexal cystic area at 1.7 cm. There are few scattered small mesenteric and right lower quadrant lymph nodes which are nonspecific No acute bony findings IMPRESSION: 1. No acute finding. 2. Moderate amount of retained colonic feces. Dictated by: Adin Mcbride MD 02/22/2020 11:31 Electronically signed by Adin Mcbride MD in [place] 02/22/2020 11:31
== END ==
PROVIDERS: PCP Family Medicine; Visit Provider Urology
DX: R31.9 Hematuria, unspecified (principal)
CPT/HCPCS: 74176

== ENCOUNTER → 2020-02-25 16:36 | Outpatient (CLI) | payer BC, SELFPAY ==
[2020-02-25 16:39] LABS: Microscopic, Urine URINE MICROSCOPIC (MICROSCOPIC)
[2020-02-25 16:48] LABS: Appearance,Urine CLEAR (Clear); Bilirubin,Urine Negative (Negative); Blood, Urine 1+ (Negative); Color,Urine YELLOW (Yellow); Glucose,Urine (UA) Negative (Negative); Ketones,Urine Negative (Negative); Leukocyte Esterase,Urine Negative (Negative); Nitrate,Urine Negative (Negative); Protein,Urine Negative (Negative)
[2020-02-25 20:52] LABS: Bacteria,Urine Trace /lpf; Squamous Epithelial Cell,Urine Occasional #/hpf (0-5); WBC,Urine Occasional #/hpf (0-3)
== END ==
PROVIDERS: Visit Provider Urology
DX: R31.29 Other microscopic hematuria (principal)
CPT/HCPCS: 81001

== ENCOUNTER 2020-03-20 02:48 | Emergency (ER) | payer BC, SELFPAY ==
--- NOTE | 2020-03-20 02:40 | ECG_ITS ---
APPROVED REPORT Exam: Resting ECG HR:98 bpm ECG Measurements Heart Rate 98 AXES OK 150 P 64 QRSd 80 QRS 40 QT 354 T 35 QTc 451 <Conclusion> Normal sinus rhythm Left atrial abnormality Nonspecific T wave abnormality Abnormal ECG Electronically signed by : Sd Reyes, 03/23/2020 12:03:38
[2020-03-20 02:49] VITALS: BP 128/71; PULSE 95; RESP 18; TEMP 36.5; O2SAT 100; BMI 23.3
--- NOTE | 2020-03-20 02:54 | ECG_ITS ---
APPROVED REPORT Exam: Resting ECG HR:96 bpm ECG Measurements Heart Rate 96 AXES PA 146 P 64 QRSd 82 QRS 48 QT 358 T -39 QTc 452 <Conclusion> Normal sinus rhythm Nonspecific T wave abnormality Abnormal ECG Electronically signed by : Sd Reyes, 03/23/2020 12:03:23
--- NOTE | 2020-03-20 03:04 | XR_ITS ---
PROCEDURE: XR CHEST PORTABLE CLINICAL HISTORY: chest pain COMPARISON: CXR CHEST(2 VIEWS-NOT PORTABLE) from 03/23/2016 CTAC CTA-CHEST from 03/23/2016 XR CHEST 2V from 06/07/2019 FINDINGS: The cardiomediastinal silhouette and pulmonary vascularity are within normal limits. The lungs are clear without infiltrates, suspicious nodules, or pleural effusions. No acute bony abnormalities. IMPRESSION: No acute findings. Dictated by: Kelvin Francois 03/20/2020 08:10 Electronically signed by Kelvin Francois in [place] 03/20/2020 08:10
[2020-03-20 03:09] VITALS: BP 118/74; PULSE 88; RESP 26; O2SAT 99
--- NOTE | 2020-03-20 03:09 | HMH.EDARPALP ---
ED Disposition Clinical Impression: Atypical chest pain Disposition: Home, Self-Care Condition on Discharge: Good Instructions: DI for Atypical Chest Pain Additional Instructions: call pcp in am for follow up Referrals: Ananda Kaur MD [Primary Care Provider] - - Critical Care Critical Care Time: No Attestation: On 03/20/20, the high probability of a clinically significant, sudden or life threatening deterioration of the following system(s) required my full and direct attention, intervention and personal management. The time I documented below is in addition to time spent performing reported procedures but includes the following listed in this critical care notation. Medical Decision Making - Medical Records Medical records reviewed: Yes: I reviewed the patient's medical records. - Ru Inquiry Pt receiving controlled substance: No Vital Signs: 03/20/20 02:49 03/20/20 03:09 03/20/20 03:59 Temperature 97.7 F 98.5 F Temperature Source Oral Oral Pulse Rate [Right Radial] 95 H 88 86 Respiratory Rate 18 26 H 22 Blood Pressure [Right Arm] 128/71 118/74 124/81 Blood Pressure Mean [Right Arm] 90 88 95 Blood Pressure Source [Right Arm] Automatic Cuff Automatic Cuff Automatic Cuff Blood Pressure Position [Right Arm] Supine Supine Supine 02 Sat by Pulse Oximetry 100 99 99 Oxygen Delivery Method Room Air Room Air Room Air 03/20/20 04:13 Temperature Temperature Source Pulse Rate [Right Radial] 79 Respiratory Rate 19 Blood Pressure [Right Arm] 121/74 Blood Pressure Mean [Right Arm] 89 Blood Pressure Source [Right Arm] Automatic Cuff Blood Pressure Position [Right Arm] Supine 02 Sat by Pulse Oximetry 98 Oxygen Delivery Method Room Air - Lab Data Lab results reviewed: Yes: I reviewed the patient's lab results. Lab Results 03/20/20 02:30: WBC 7.1, RBC 4.54, Hgb 14.8, Hct 42.6, MCV 93.9, MCH 32.6 H, MCHC 34.7, RDW 12.4, Plt Count 234, MPV 8.4, Neut % (Auto) 46.1, Lymph % (Auto) 47.8, [place] % (Auto) 4.5, Eos % (Auto) 1.0, Baso % (Auto) 0.6, Neut # (Auto) 3.3, Lymph # (Auto) 3.4, [place] # (Auto) 0.3, Eos # (Auto) 0.1, Baso # (Auto) 0.0 03/20/20 02:30: Sodium 136, Potassium 4.1, Chloride 104, Carbon Dioxide 26, Anion Gap 10.1, BUN 12, Creatinine 0.70, Estimated Creat Clear 120, Estimated GFR 102, Est GFR ( Amer) 123, Glucose 113 H, Calcium 9.2, Total Bilirubin 0.3, AST 28, ALT 15, Alkaline Phosphatase 99, Total Creatine Kinase 54, Troponin I < 0.01, Total Protein 7.1, Albumin 4.3, Globulin 2.8, Albumin/Globulin Ratio 1.5 03/20/20 02:30: Serum HCG, Qual Negative Result diagrams: 03/20/20 02:30 03/20/20 02:30 Orders (Tests/Meds): ORDERS Category Date Time Status CXR --portable [XR chest portable] Stat Exams 03/20/20 03:04 Taken Complete Blood Count Auto Diff Stat Lab 03/20/20 02:30 Results Erythrocyte Sedimentation Rate Stat Lab 03/20/20 02:30 Results T4 (Thyroxine) Stat Lab 03/20/20 02:30 Received TSH [Thyroid Stimulating Hormone] Stat Lab 03/20/20 02:30 Received Troponin I Q3H Lab 03/20/20 06:15 Ordered Troponin I Q3H Lab 03/20/20 09:15 Ordered Urinalysis and Microscopic Stat Lab 03/20/20 03:35 Received - Radiology Data #1 Image(s): Chest Image Reviewed: Yes I reviewed the patient's radiology image Preliminary Findings: Normal/NAD - ECG Data Tracing #1 Normal Sinus Rhythm: Yes Ischemic changes: non-specific ST-T wave changes Tracing #2 Normal Sinus Rhythm: Yes Ischemic changes: non-specific ST-T wave changes ECG compared to prior tracings: there are no significant changes - Physician Consults Physician Consulted: [email or web address] Reason -: Pt condition - SUDHA Score for Non-Stemi Age of Patient: <30 years old Heart Rate: 90-109 bpm Systolic Blood Pressure: 120-139 mmhg Serum Creatinine: 0.40-0.79 mg/dl CHF [place] Class: I-No CHF Other Risk Factors: None Non-Stemi Risk Score: 53 Arrhythmia/Palpitations HPI - General Chief Complaint: Ca
[2020-03-20 03:12] LABS: Basophils % 0.6 % (0.1-2.0); Eosinophils # 0.1 K/mm3 (0.0-0.4); Hematocrit 42.6 % (37.0-47.0); Hemoglobin 14.8 g/dL (12.2-16.2); Lymphocytes # 3.4 K/mm3 (0.7-4.5); Lymphocytes % 47.8 % (10-50); Mean Corpuscular HGB Conc 34.7 g/dL (31.8-35.4); Mean Corpuscular Hemoglobin 32.6 pg (27.0-31.2); Mean Corpuscular Volume 93.9 fl (81-99); Mean Platelet Volume 8.4 fl (7.4-10.4); Monocytes # 0.3 K/mm3 (0.1-1.0); Monocytes % 4.5 % (1.7-9.3); Neutrophils # 3.3 K/mm3 (1.8-7.8); Neutrophils % 46.1 % (37.0-80.0); Platelet Count 234 K/mm3 (142-424); Red Blood Count 4.54 M/mm3 (4.20-5.40); Red Cell Distribution Width 12.4 % (11.5-17.5); White Blood Count 7.1 K/mm3 (4.8-10.8)
[2020-03-20 03:17] LABS: Alanine Aminotransferase 15 U/L (12-78); Albumin Level 4.3 g/dl (3.5-5.0); Albumin/Globulin Ratio 1.5 (1.1-1.8); Alkaline Phosphatase 99 U/L (38-126); Anion Gap 10.1 mEq/L (5-15); Aspartate Amino Transferase 28 U/L (14-36); Bilirubin,Total 0.3 mg/dl (0.2-1.3); Blood Urea Nitrogen 12 mg/dl (7-17); Calcium 9.2 mg/dl (8.4-10.2); Carbon Dioxide 26 mmol/L (22.0-30.0); Chloride 104 mmol/L (98-107); Creatine Kinase 54 U/L (30-135); Creatinine Clearance Estimated 120 mL/min (50-200); Estimated Glomerular Filt Rate 102 ml/min (>60); GFR (African American) 123 ML/MIN (>60); Globulin 2.8 g/dL (1.3-3.2); Glucose 113 mg/dl (74-100); Potassium 4.1 mmoL/L (3.5-5.1); Sodium 136 mmol/L (136-145); Total Protein,Serum 7.1 g/dl (6.3-8.2)
[2020-03-20 03:44] LABS: Troponin I < 0.01 ng/ml (0.00-0.034)
[2020-03-20 03:45] LABS: HCG Qualitative, Serum Negative (Negative)
[2020-03-20 03:55] LABS: Appearance,Urine CLEAR (Clear); Bilirubin,Urine Negative (Negative); Blood, Urine 1+ (Negative); Color,Urine YELLOW (Yellow); Glucose,Urine (UA) Negative (Negative); Ketones,Urine Negative (Negative); Leukocyte Esterase,Urine Negative (Negative); Microscopic, Urine URINE MICROSCOPIC (MICROSCOPIC); Nitrate,Urine Negative (Negative); Protein,Urine Negative (Negative); Specific Gravity, Urine 1.015 (1.005-1.030); Urobilinogen,Urine 0.2 EU/dl (0.2)
[2020-03-20 03:59] VITALS: BP 124/81; PULSE 86; RESP 22; TEMP 36.9; O2SAT 99
[2020-03-20 04:13] VITALS: BP 121/74; PULSE 79; RESP 19; O2SAT 98
[2020-03-20 04:14] LABS: T4 (Thyroxine) 8.6 ug/dl (5.53-11.0)
--- NOTE | 2020-03-20 04:19 | PC.NURSE ---
Dr Vogel consulting Dr Kaur
[2020-03-20 04:28] LABS: Thyroid Stimulating Hormone 5.04 uIU/mL (0.465-4.68)
[2020-03-20 04:42] LABS: Erythrocyte Sedimentation Rate 16 mm/hr (0-20)
[2020-03-20 04:43] VITALS: BP 126/78; PULSE 85; RESP 12; TEMP 36.9; O2SAT 98
[2020-03-20 04:44] LABS: Bacteria,Urine Trace /lpf; WBC,Urine Occasional #/hpf (0-3)
== END 2020-03-20 04:48 | disposition home or self-care (01) ==
PROVIDERS: Emergency Provider Emergency Medicine; PCP Family Medicine
DX: R07.89 Other chest pain (principal); R00.2 Palpitations; Z88.8 Allergy status to other drugs, medicaments and biological substances
CPT/HCPCS: 71045; 80053; 81001; 82550; 84436; 84443; 84484; 84703; 85025; 85651; 93005; 96365; 99283; 99284

== ENCOUNTER 2020-04-04 16:06 | Emergency (ER) | payer BC, SELFPAY ==
[2020-04-04 16:22] VITALS: BP 143/96; PULSE 98; RESP 19; TEMP 36.9; O2SAT 99; BMI 23.3
[2020-04-04 16:26] LABS: Apearance,Urine Clear (Clear); Bilirubin,Urine Negative (Negative); Blood, Urine 2+ (Negative); Color,Urine Yellow (Yellow); Glucose,Urine (UA) Negative (Negative); Ketones,Urine Negative (Negative); Protein,Urine Negative (Negative); Specific Gravity, Urine 1.015 (1.005-1.030)
[2020-04-04 16:27] LABS: UTC Leukocyte Esterase,Urine Negative (Negative); UTC Nitrate,Urine Negative (Negative); UTC Pregnancy Test, Urine Negative (Negative); Urobilinogen,Urine 0.2 EU/dl (0.2)
--- NOTE | 2020-04-04 16:37 | HMH.EDUTC ---
[facility] [place]ression: Nausea & vomiting Qualifiers: Vomiting type: unspecified Vomiting Intractability: unspecified Qualified Code(s): R11.2 - Nausea with vomiting, unspecified Disposition: Home, Self-Care Condition on Discharge: Good Instructions: DI for Nausea -- Adult, Nausea and Vomiting-Adult, DI for General Gallbladder Conditions, DI for Abdominal Pain-Adult, Ondansetron Additional Instructions: ? Drink extra fluids with and between meals. If you have difficulty drinking, try very small amounts of water or suck on ice chips. ? Avoid fruit juices, as these do not replace minerals and can actually increase diarrhea. ? Children and adults can use sports drinks to replenish electrolytes. Younger children and infants should use products formulated for children, like oral rehydration solutions. ? Eat food in small amounts and let your stomach recover. ? Get lots of rest. You may feel tired or weak. ? No greasy or fried foods for the next 24-48 hours BRAT diet Bananas Rice Apples and [place] ? Make sure to drink plenty of liquids ? Return if needed ? Straight to ER if any life threatening symptoms ? Zofran as prescribed ? You was given an outpatient order for diarrhea panel, please collect specimen and bring back to outpatient lab then call back to the [facility] or follow up with family doctor for results ? Follow up with family doctor in the next 48-72 hours if no improvement or any worsening of symptoms Try to avoid or limit these high-fat foods in your diet: Fried foods. Highly processed foods (doughnuts, pie, cookies) Whole-milk dairy products (cheese, ice cream, butter) Fatty red meat. Straight to ER if any life threatening symptoms or if pain returns Follow up with your Family Doctor on Monday if no improvement or any worsening of symptoms Prescriptions: Ondansetron [Zofran 4mg ODT] 4 mg PO Q8HP PRN #12 tab.rapdis PRN Reason: Nausea Transmission Status: Pending to [id number] Referrals: Ananda Kaur MD [Primary Care Provider] - As needed Medical Decision Making - Ru Inquiry Pt receiving controlled substance: No Ru was queried for this patient: No Vital Signs: 04/04/20 16:22 Temperature 98.4 F Temperature Source Oral Pulse Rate [Right Brachial] 98 H Respiratory Rate 19 Blood Pressure [Right Arm] 143/96 H Blood Pressure Mean [Right Arm] 111 Blood Pressure Source [Right Arm] Automatic Cuff Blood Pressure Position [Right Arm] Sitting 02 Sat by Pulse Oximetry 99 Oxygen Delivery Method Room Air - Lab Data Lab results reviewed: Yes: I reviewed the patient's lab results. Lab Results 04/04/20 16:15: Urine Color Yellow, Urine Appearance Clear, Urine pH 7.0, Ur Specific [place] 1.015, Urine Protein Negative, Urine Glucose (UA) Negative, Urine Ketones Negative, Urine Blood 2+, Urine Nitrate Negative, Urine Bilirubin Negative, Urine Urobilinogen 0.2, Ur Leukocyte Esterase Negative, Tst Clinic Negative Orders (Tests/Meds): ED MEDICATIONS Discontinued Medications Generic Name Dose Route Start Last Admin Trade Name Freq PRN Reason Stop Dose Admin Ondansetron HCl 4 mg 04/04/20 16:40 04/04/20 16:50 Zofran 4mg Odt SL 04/04/20 16:41 4 mg ONCE ONE Administration - Reevaluation(s) Time: 17:04 Reevaluation #1: After zofran patient states that nausea is gone and she is feeling much better Still denies abdominal pain at this time again discussed transfer to ED again for evaluation of abdominal pain and patient declined States that she is not having any pain at this time and declined transfer states that she will return immediately if pain returns or follow up with family doctor on Monday for further evaluation and examination Medical Decision Narrative: Discussed with patient that abdominal pain is not typically seen in [facility] and recommended transfer to ED for further workup and evaluation for ? gall bladder Patient declined transfer at this time States that
[2020-04-04 17:14] VITALS: BP 143/96; PULSE 98; RESP 19; TEMP 36.9; O2SAT 99
== END 2020-04-04 17:15 | disposition home or self-care (01) ==
PROVIDERS: Emergency Provider Nurse Practitioner; PCP Family Medicine
DX: R10.11 Right upper quadrant pain (principal); R11.2 Nausea with vomiting, unspecified; R00.2 Palpitations
CPT/HCPCS: 81003; 81025; 99201

== ENCOUNTER 2020-07-28 20:03 | Emergency (ER) | payer SELFPAY ==
[2020-07-28] VITALS (7 sets, daily range): BP systolic 104–143; BP diastolic 64–93; PULSE 67–106; RESP 16; TEMP 36.8; O2SAT 99–100; BMI 25.7
--- NOTE | 2020-07-28 20:25 | ECG_ITS ---
APPROVED REPORT Exam: Resting ECG HR:113 bpm ECG Measurements Heart Rate 113 AXES NJ 128 P 46 QRSd 74 QRS 58 QT 324 T 24 QTc 444 Conclusion Sinus tachycardia Nonspecific ST abnormality Abnormal ECG Electronically signed by : Sd Reyes, 07/29/2020 06:10:10
--- NOTE | 2020-07-28 20:26 | XR_ITS ---
PROCEDURE: XR CHEST 2V CLINICAL HISTORY: palpitations COMPARISON: CR CXR CHEST(2 VIEWS-NOT PORTABLE) from 03/23/2016 CT CTAC CTA-CHEST from 03/23/2016 CR XR CHEST 2V from 06/07/2019 CR XR CHEST PORTABLE from 03/20/2020 FINDINGS: The cardiomediastinal silhouette and pulmonary vascularity are within normal limits. No lobar consolidation or collapse. Nodular opacity overlies left 6th rib anteriorly and could be due to nipple shadow measuring approximately 1 cm and may be confirmed with follow-up. The remaining lungs are clear. Opacity is present in the left apex consistent with the patient's hair No acute bony abnormalities. IMPRESSION: Possible nipple shadow on the left which may be confirmed with follow-up the nash negative with no acute finding. Dictated by: Adin Mcbride MD 07/29/2020 04:57 Adin Mcbride MD in [place] 07/29/2020 04:57
[2020-07-28 20:36] LABS: Basophils # 0.4 K/mm3 (0-0.2); Eosinophils # 0.1 K/mm3 (0.0-0.4); Eosinophils % 0.6 % (0.1-12.0); Hematocrit 47.4 % (37.0-47.0); Hemoglobin 16.7 g/dL (12.2-16.2); Lymphocytes % 40.6 % (10-50); Mean Corpuscular HGB Conc 35.2 g/dL (31.8-35.4); Mean Corpuscular Hemoglobin 32.1 pg (27.0-31.2); Mean Corpuscular Volume 91.4 fl (81-99); Mean Platelet Volume 23.6 fl (7.4-10.4); Monocytes # 0.5 K/mm3 (0.1-1.0); Monocytes % 3.7 % (1.7-9.3); Neutrophils # 6.7 K/mm3 (1.8-7.8); Platelet Count 244 K/mm3 (142-424); Red Blood Count 5.19 M/mm3 (4.20-5.40); Red Cell Distribution Width 15.5 % (11.5-17.5); White Blood Count 12.2 K/mm3 (4.8-10.8)
[2020-07-28 20:39] LABS: Chloride 103 mmol/L (98-107); Potassium 3.5 mmoL/L (3.5-5.1); Sodium 141 mmol/L (136-145)
[2020-07-28 20:42] LABS: Anion Gap 20.5 mEq/L (5-15); Blood Urea Nitrogen 11 mg/dl (7-17); Carbon Dioxide 21 mmol/L (22.0-30.0); Creatinine Clearance Estimated 131 mL/min (50-200); Estimated Glomerular Filt Rate 101 ml/min (>60); GFR (African American) 122 ML/MIN (>60)
[2020-07-28 20:43] LABS: Calcium 10.2 mg/dl (8.4-10.2); Glucose 107 mg/dl (74-100)
[2020-07-28 20:49] LABS: Microscopic, Urine URINE MICROSCOPIC (MICROSCOPIC)
--- NOTE | 2020-07-28 20:53 | HMH.EDARPALP ---
ED Disposition Clinical Impression: Atypical chest pain, Heart palpitations Disposition: Home, Self-Care Condition on Discharge: Good Instructions: DI for Palpitations Additional Instructions: see card and pcp for nghia mariscalgavin Referrals: Ananda Kaur MD [Primary Care Provider] - - Critical Care Critical Care Time: No Attestation: On 07/28/20, the high probability of a clinically significant, sudden or life threatening deterioration of the following system(s) required my full and direct attention, intervention and personal management. The time I documented below is in addition to time spent performing reported procedures but includes the following listed in this critical care notation. Medical Decision Making - Medical Records Medical records reviewed: Yes: I reviewed the patient's medical records. - Ru Inquiry Pt receiving controlled substance: No Vital Signs: 07/28/20 20:04 07/28/20 20:50 07/28/20 21:14 Temperature 98.2 F Temperature Source Oral Pulse Rate [Left Radial] 106 H 87 101 H Respiratory Rate 16 16 16 Blood Pressure [Right Arm] 143/93 H 120/83 116/71 Blood Pressure Mean [Right Arm] 109 95 86 Blood Pressure Source [Right Arm] Automatic Cuff Automatic Cuff Blood Pressure Position [Right Arm] Sitting Sitting 02 Sat by Pulse Oximetry 100 100 99 Oxygen Delivery Method Room Air Room Air Room Air 07/28/20 21:59 07/28/20 22:37 Temperature Temperature Source Pulse Rate [Left Radial] 83 67 Respiratory Rate 16 16 Blood Pressure [Right Arm] 108/74 L 104/64 L Blood Pressure Mean [Right Arm] 85 77 Blood Pressure Source [Right Arm] Blood Pressure Position [Right Arm] 02 Sat by Pulse Oximetry 100 99 Oxygen Delivery Method Room Air Room Air - Lab Data Lab results reviewed: Yes: I reviewed the patient's lab results. Lab Results 07/28/20 20:20: WBC 12.2 H, RBC 5.19, Hgb 16.7 H, Hct 47.4 H, MCV 91.4, MCH 32.1 H, MCHC 35.2, RDW 15.5, Plt Count 244, MPV 23.6 H, Neut % (Auto) 55.0, Lymph % (Auto) 40.6, [place] % (Auto) 3.7, Eos % (Auto) 0.6, Baso % (Auto) 3.0 H, Neut # (Auto) 6.7, Lymph # (Auto) 5.0 H, [place] # (Auto) 0.5, Eos # (Auto) 0.1, Baso # (Auto) 0.4 H 07/28/20 20:20: Sodium 141, Potassium 3.5, Chloride 103, Carbon Dioxide 21 L, Anion Gap 20.5 H, BUN 11, Creatinine 0.70, Estimated Creat Clear 131, Estimated GFR 101, Est GFR ( Amer) 122, Glucose 107 H, Calcium 10.2, Troponin I < 0.01 07/28/20 20:42: Urine Color Yellow, Urine Appearance Clear, Urine pH 6.0, Ur Specific [place] >= 1.030, Urine Protein Negative, Urine Glucose (UA) Negative, Urine Ketones Trace, Urine Blood 3+, Urine Nitrate Negative, Urine Bilirubin Negative, Urine Urobilinogen 0.2, Ur Leukocyte Esterase Negative, Urine RBC 3-5, Urine WBC Occasional 07/28/20 20:42: Urine HCG, Qual Negative 07/28/20 23:15: Troponin I < 0.01 Result diagrams: 07/28/20 20:20 07/28/20 20:20 Orders (Tests/Meds): ED MEDICATIONS Generic Name Dose Route Start Last Admin Trade Name Freq PRN Reason Stop Dose Admin Sodium Chloride 1,000 mls @ 999 mls/hr 07/28/20 20:45 07/28/20 20:50 Sod Chlor 0.9% 1000ml Bag IV 07/28/20 21:45 999 mls/hr .Q1H1M MARIAMA Administration Discontinued Medications Generic Name Dose Route Start Last Admin Trade Name Freq PRN Reason Stop Dose Admin Famotidine 20 mg 07/28/20 22:06 07/28/20 22:10 Famotidine 20mg/2ml Vial IV 07/28/20 22:07 20 mg ONCE ONE Administration Lorazepam 0.5 mg 07/28/20 23:05 07/28/20 23:06 Lorazepam 2mg/Ml Vial IV 07/28/20 23:06 0.5 mg ONCE ONE Administration Metoclopramide HCl 10 mg 07/28/20 22:06 07/28/20 22:10 Metoclopramide Hcl 10mg/2ml Vial IVP 07/28/20 22:07 10 mg ONCE ONE Administration ORDERS Category Date Time Status XR chest 2V Stat Exams 07/28/20 20:26 Taken Troponin I Q3H Lab 07/29/20 02:30 Ordered - Radiology Data #1 Image(s): Chest Image Reviewed: Yes I reviewed the patient's radiology image
[2020-07-28 20:56] LABS: Troponin I < 0.01 ng/ml (0.00-0.034)
[2020-07-28 20:57] LABS: Appearance,Urine CLEAR (Clear); Bilirubin,Urine Negative (Negative); Blood, Urine 3+ (Negative); Color,Urine YELLOW (Yellow); Glucose,Urine (UA) Negative (Negative); Ketones,Urine TRACE (Negative); Leukocyte Esterase,Urine Negative (Negative); Nitrate,Urine Negative (Negative); Protein,Urine Negative (Negative); Specific Gravity, Urine >= 1.030 (1.005-1.030); Urobilinogen,Urine 0.2 EU/dl (0.2)
[2020-07-28 20:58] LABS: Urine Pregnancy, HCG Qual. Negative (Negative)
[2020-07-28 21:11] LABS: WBC,Urine Occasional #/hpf (0-3)
[2020-07-28 23:46] LABS: Troponin I < 0.01 ng/ml (0.00-0.034)
[2020-07-29 00:14] VITALS: BP 104/68; PULSE 76; RESP 16; O2SAT 98
[2020-07-29 00:16] VITALS: BP 110/64; PULSE 74; RESP 14; TEMP 36.8; O2SAT 98
== END 2020-07-29 00:18 | disposition home or self-care (01) ==
PROVIDERS: Emergency Provider Emergency Medicine; PCP Family Medicine
DX: R07.89 Other chest pain (principal); R00.2 Palpitations; R73.9 Hyperglycemia, unspecified; Z88.8 Allergy status to other drugs, medicaments and biological substances
CPT/HCPCS: 71046; 80048; 81001; 81025; 84484; 85025; 93005; 96365; 96375; 99283

== ENCOUNTER → 2020-11-24 10:42 | Outpatient (CLI) | payer BC, SELFPAY | PROVIDERS: PCP Family Medicine; Visit Provider Plastic Surgery | DX: Z01.818 Encounter for other preprocedural examination (principal); Z11.52 Encounter for screening for COVID-19 | CPT/HCPCS: U0003 ==

== ENCOUNTER 2021-02-08 10:48 | Emergency (ER) | payer BC, SELFPAY ==
[2021-02-08 10:54] VITALS: BP 125/72; PULSE 83; RESP 19; TEMP 36.6; O2SAT 98; BMI 23.6
[2021-02-08 11:12] VITALS: BP 125/72; PULSE 83; RESP 19; TEMP 36.6; O2SAT 98
[2021-02-08 11:14] LABS: UTC Strep Screen (Rapid) Negative (Negative)
--- NOTE | 2021-02-08 11:32 | HMH.EDUTC ---
[facility] [place] Impression: Viral syndrome, Exposure to COVID-19 virus Pharyngitis Qualifiers: Pharyngitis/tonsillitis etiology: unspecified etiology Qualified Code(s): J02.9 - Acute pharyngitis, unspecified Disposition: Home, Self-Care Condition on Discharge: Good Instructions: Preventing the Spread of Coronavirus Discharge Instructions Additional Instructions: Drink plenty of fluids. Take tylenol or ibuprofen for pain or fever. Take the medications as directed. Follow up with your regular doctor. GO TO THE ER FOR ANY WORSENING SYMPTOMS Prescriptions: Ondansetron [Zofran 4mg ODT] 4 mg PO Q8HP PRN #12 tab.rapdis PRN Reason: Nausea Transmission Status: Received by [id number] Azithromycin [Z-Reinaldo 250mg Tab*] 250 mg PO UD DOSE PK #6 tab Transmission Status: Received by [id number] Referrals: Ananda Kaur MD [Primary Care Provider] - Time of Disposition: 11:55 Medical Decision Making - Medical Records Medical records reviewed: No: I reviewed the patient's medical records. - Ru Inquiry Pt receiving controlled substance: No Vital Signs: 02/08/21 10:54 02/08/21 11:12 Temperature 97.8 F 97.8 F Temperature Source Oral Pulse Rate 83 Pulse Rate [Right] 83 Respiratory Rate 19 19 Blood Pressure 125/72 Blood Pressure [Right Arm] 125/72 Blood Pressure Mean [Right Arm] 89 02 Sat by Pulse Oximetry 98 - Lab Data Lab Results 02/08/21 11:11: Strep Scn Rapid Clinic Negative [facility] [place] - General Stated complaint: covid exposure Time Seen by Provider: 02/08/21 11:32 Mode of Arrival: Ambulatory Source of Information: Patient Limitations: No Limitations Description of Symptoms (Recalled from Triage Doc. by RN): Covid testing exposure- no taste, cough, sore throat, runny nose HEENT Symptoms (Recalled from RN notes): Yes Resp Symptoms (Recalled from RN notes): Yes Skin Symptoms (Recalled from RN notes): No MS Symptoms (Recalled from RN notes): No Functional Status (Recalled from RN notes): wnl - History of Present Illness Provider Complaint: She states that she has had chilling, fever up to 101, loss of taste and smell for the past 1 day. Her tested positive for covid-19 and strep throat this morning. He has similar symptoms as her. - Related Data Previous Rx's Medication Instructions Recorded Azithromycin [Z-Reinaldo 250mg Tab*] 250 mg PO UD DOSE PK #6 tab 02/08/21 Ondansetron [Zofran 4mg ODT] 4 mg PO Q8HP PRN #12 tab.rapdis 02/08/21 Allergies Allergy/AdvReac Type Severity Reaction Status Date / Time chlorhexidine [CHLORHEXIDINE] Allergy Unknown I-RASH Verified 02/08/21 11:11 diphenhydramine Allergy Unknown UNABLE TO Verified 02/08/21 11:11 [From BENADRYL] URINATE - Worker's Comp Is this a Worker's Comp case?: No [facility] History - Hepatitis A Screen Drug use history?: No High risk sexual behaviors?: No History of sexually transmitted infection?: No Currently employed?: No Childcare worker?: No Do you have indoor plumbing?: Yes Do you have electricity?: Yes Attestation statement:: This patient has been screened for Hepatitis A risk factors. I have reviewed the patient's past medical history: Yes Medical History: Reports:: Palpitations Denies:: Cancer, Diabetes Mellitus Type 1, Diabetes Mellitus Type 2, MRSA Other Medical History: Reports: Other Comment: Leo's cyst of right knee Other Surgeries: Yes: No Previous Surgery, , Hernia Repair, Other Amputation: No Fractures: No Comment: dental surgery, Cyst off left ankle - Social History Smoking Status: Never smoker Alcohol Intake: never Substance Use Type: denies use Occupational Status: other Housing: [facility] Household Members: spouse, children Family Hx:: Heart Attack, Hypertension, Coronary Artery Disease, Cancer ROS Obtained: Yes All systems reviewed & no additional complaints - Constitutional Constitutional: Reports system r
--- NOTE | 2021-02-08 19:15 | PC.NURSE ---
Pt notified of positive Covid result 02-08-1021 at 1723.
== END 2021-02-08 11:57 | disposition home or self-care (01) ==
PROVIDERS: Emergency Provider Nurse Practitioner Family; PCP Family Medicine
DX: U07.1 COVID-19 (principal); B34.8 Other viral infections of unspecified site
CPT/HCPCS: 87880; 99202; G0463; U0003

== ENCOUNTER 2021-03-04 14:26 | Emergency (ER) | payer BC, SELFPAY ==
[2021-03-04] VITALS (7 sets, daily range): BP systolic 107–133; BP diastolic 66–84; PULSE 83–111; RESP 16–18; TEMP 36.8; O2SAT 97–100; BMI 23.6
--- NOTE | 2021-03-04 14:43 | US_ITS ---
PROCEDURE: US ABDOMEN LIMITED CLINICAL INDICATION: RUQ pain, gallbladder COMPARISON: No exams were available for comparison FINDINGS: PANCREAS: Unremarkable. No obvious mass or abnormal fluid collection. No ductal dilatation LIVER: No focal liver lesions demonstrated. Homogeneous echogenicity. No intrahepatic biliary ductal dilatation evident. There is appropriate direction of blood flow within a non dilated portal vein RIGHT KIDNEY: Unremarkable. Normal size and echogenicity. No hydronephrosis GALLBLADDER: No gallstones are apparent. No wall thickening, pericholecystic fluid, or biliary dilatation is evident. A hyperechoic focus is present along the posterior wall the gallbladder measuring 4 mm consistent with a gallbladder polyp. Common bile duct is normal at 2 mm. IMPRESSION: Small gallbladder polyp otherwise negative right upper quadrant ultrasound Dictated by: Adin Mcbride MD 03/04/2021 16:10 Adin Mcbride MD in [place] 03/04/2021 16:10
--- NOTE | 2021-03-04 14:49 | HMH.EDABDPAI ---
ED Disposition Clinical Impression: Gastritis Disposition: Home, Self-Care Condition on Discharge: Good Instructions: Gastritis Additional Instructions: Return to the emergency department for worsening pain vomiting blood fever or any other concerns within the next 8 hours otherwise follow-up with your primary care physician within next few days Prescriptions: Omeprazole Magnesium [Prilosec Otc 20mg Tab] 20 mg PO DAILY 20 Days #20 tab Transmission Status: Pending to [facility] Ondansetron [Zofran 4mg ODT] 4 mg PO TIDP PRN #15 tab PRN Reason: Nausea Transmission Status: Pending to [facility] Referrals: Ananda Kaur MD [Primary Care Provider] - - Critical Care Critical Care Time: No Attestation: On 03/04/21, the high probability of a clinically significant, sudden or life threatening deterioration of the following system(s) required my full and direct attention, intervention and personal management. The time I documented below is in addition to time spent performing reported procedures but includes the following listed in this critical care notation. Medical Decision Making - Medical Records Medical records reviewed: Yes: I reviewed the patient's medical records. - Ru Inquiry Pt receiving controlled substance: No Vital Signs: 03/04/21 14:27 03/04/21 15:00 03/04/21 15:54 Temperature 98.2 F Temperature Source Oral Pulse Rate 93 H 83 Pulse Rate [Right] 88 Respiratory Rate 18 Blood Pressure 117/68 133/66 Blood Pressure [Right Arm] 124/84 Blood Pressure Mean [Right Arm] 97 02 Sat by Pulse Oximetry 97 99 100 Oxygen Delivery Method Room Air 03/04/21 16:00 Temperature Temperature Source Pulse Rate 96 H Pulse Rate [Right] Respiratory Rate Blood Pressure 119/69 Blood Pressure [Right Arm] Blood Pressure Mean [Right Arm] 02 Sat by Pulse Oximetry 100 Oxygen Delivery Method - Lab Data Lab Results 03/04/21 14:56: WBC 7.9, RBC 4.56, Hgb 14.0, Hct 41.6, MCV 91.3, MCH 30.8, MCHC 33.7, RDW 11.9, Plt Count 199, MPV 7.6, Neut % (Auto) 72.0, Lymph % (Auto) 22.1, [place] % (Auto) 5.0, Eos % (Auto) 0.7, Baso % (Auto) 0.3, Neut # (Auto) 5.7, Lymph # (Auto) 1.8, [place] # (Auto) 0.4, Eos # (Auto) 0.1, Baso # (Auto) 0.0 03/04/21 14:56: Sodium 137, Potassium 4.0, Chloride 105, Carbon Dioxide 22, Anion Gap 14.0, BUN 9, Creatinine 0.70, Estimated Creat Clear 120, Estimated GFR 101, Est GFR ( Amer) 122, Glucose 105 H, Calcium 9.1, Total Bilirubin 0.8, AST 21, ALT 12, Alkaline Phosphatase 84, Total Protein 7.6, Albumin 4.7, Globulin 2.9, Albumin/Globulin Ratio 1.6 03/04/21 14:56: Serum HCG, Qual Negative 03/04/21 14:56: Lipase 42 Result diagrams: 03/04/21 14:56 03/04/21 14:56 Orders (Tests/Meds): ED MEDICATIONS Discontinued Medications Generic Name Dose Route Start Last Admin Trade Name Rin PRN Reason Stop Dose Admin Belladonna Alkaloids 60 ml 03/04/21 14:43 03/04/21 15:00 Gi Cocktail 60ml Udc PO 03/04/21 14:44 60 ml ONCE ONE Administration Sodium Chloride 1,000 mls @ 999 mls/hr 03/04/21 14:45 03/04/21 15:00 Sod Chlor 0.9% 1000ml Bag IV 03/04/21 15:45 999 mls/hr .Q1H1M MARIAMA Administration Morphine Sulfate 4 mg 03/04/21 15:53 03/04/21 16:20 Morphine 4mg/Ml Syringe IV 03/04/21 15:54 4 mg ONCE ONE Administration Medical Decision Narrative: 25-year-old female presents with right upper quadrant tenderness. She is in no acute distress nontoxic-appearing comfortable in the room. She does not have an acute abdomen on exam. No concern for ischemia perforation or other acute abdominal issue. Right upper quadrant is tender, ultrasound obtained to assess gallbladder. Given IV fluids and laboratory evaluation of the abdomen obtained as well. Ultrasound showed no evidence of gallbladder stones. Pain is improved in the emergency department I talked to her about the possibility that this could be an ulcer versus
[2021-03-04 15:04] LABS: Basophils % 0.3 % (0.1-2.0); Eosinophils # 0.1 K/mm3 (0.0-0.4); Eosinophils % 0.7 % (0.1-12.0); Hematocrit 41.6 % (37.0-47.0); Lymphocytes # 1.8 K/mm3 (0.7-4.5); Lymphocytes % 22.1 % (10-50); Mean Corpuscular HGB Conc 33.7 g/dL (31.8-35.4); Mean Corpuscular Hemoglobin 30.8 pg (27.0-31.2); Mean Corpuscular Volume 91.3 fl (81-99); Mean Platelet Volume 7.6 fl (7.4-10.4); Monocytes # 0.4 K/mm3 (0.1-1.0); Neutrophils # 5.7 K/mm3 (1.8-7.8); Platelet Count 199 K/mm3 (142-424); Red Blood Count 4.56 M/mm3 (4.20-5.40); Red Cell Distribution Width 11.9 % (11.5-17.5); White Blood Count 7.9 K/mm3 (4.8-10.8)
[2021-03-04 15:08] LABS: Chloride 105 mmol/L (98-107); Sodium 137 mmol/L (136-145)
[2021-03-04 15:11] LABS: Alanine Aminotransferase 12 U/L (12-78); Alkaline Phosphatase 84 U/L (38-126); Aspartate Amino Transferase 21 U/L (14-36); Bilirubin,Total 0.8 mg/dl (0.2-1.3); Blood Urea Nitrogen 9 mg/dl (7-17); Creatinine Clearance Estimated 120 mL/min (50-200); Estimated Glomerular Filt Rate 101 ml/min (>60); GFR (African American) 122 ML/MIN (>60)
[2021-03-04 15:12] LABS: Albumin Level 4.7 g/dl (3.5-5.0); Albumin/Globulin Ratio 1.6 (1.1-1.8); Calcium 9.1 mg/dl (8.4-10.2); Carbon Dioxide 22 mmol/L (22.0-30.0); Globulin 2.9 g/dL (1.3-3.2); Glucose 105 mg/dl (74-100); Lipase 42 U/L (23-300); Total Protein,Serum 7.6 g/dl (6.3-8.2)
[2021-03-04 15:18] LABS: HCG Qualitative, Serum Negative (Negative)
--- NOTE | 2021-03-04 15:26 | PC.NURSE ---
Pt with rad. v/s delayed.
== END 2021-03-04 16:55 | disposition home or self-care (01) ==
PROVIDERS: Emergency Provider Emergency Medicine; PCP Family Medicine
DX: K29.70 Gastritis, unspecified, without bleeding (principal)
CPT/HCPCS: 76705; 80053; 83690; 84703; 85025; 96365; 96375; 99282

== ENCOUNTER 2021-09-27 09:52 | Emergency (ER) | payer BC, SELFPAY ==
[2021-09-27 09:53] VITALS: BP 135/84; PULSE 94; RESP 16; TEMP 36.9; O2SAT 98; BMI 23.1
[2021-09-27 10:33] LABS: Microscopic, Urine URINE MICROSCOPIC (MICROSCOPIC)
[2021-09-27 10:41] LABS: Appearance,Urine SL CLOUDY (Clear); Blood, Urine 3+ (Negative); Color,Urine YELLOW (Yellow); Glucose,Urine (UA) Negative (Negative); Ketones,Urine Negative (Negative); Leukocyte Esterase,Urine Negative (Negative); Nitrate,Urine Negative (Negative); PH,Urine 5.5 (5.0-8.5); Protein,Urine Negative (Negative); Specific Gravity, Urine >= 1.030 (1.005-1.030); Urobilinogen,Urine 0.2 EU/dl (0.2)
[2021-09-27 10:42] LABS: Urine Pregnancy, HCG Qual. Negative (Negative)
--- NOTE | 2021-09-27 10:42 | XR_ITS ---
FINAL REPORT TECHNIQUE: Chest PA & Lateral CLINICAL HISTORY: right chest pain/back pain FINDINGS: 2 views of the chest were performed. The heart size is normal. The mediastinum is within normal limits. There is no acute cardiopulmonary process. There are no pleural effusions. There is no pneumothorax. The bony thorax appears intact. IMPRESSION: No acute cardiopulmonary process. Reviewed, Interpreted and Dictated by Raymond Holman MD Transcribed by Zaida Hi Authenticated by Raymond Holman MD on 09/27/2021 11:54:40 AM [facility]
--- NOTE | 2021-09-27 10:44 | CT_ITS ---
FINAL REPORT TECHNIQUE: After the administration of oral and intravenous contrast, axial images were obtained through the abdomen and pelvis by computed tomography. The study was performed with techniques to keep radiation dose as low as reasonably achievable, (ALARA). Individual dose reduction techniques using automated exposure control or adjustment of mA and/or kV according to the patient's size were employed. CLINICAL HISTORY: eval for R hydronephrosis, stones, other FINDINGS: Abdomen: The lung bases are clear. There are bilateral subglandular breast implants. The liver parenchyma is homogeneous. The gallbladder is present. The spleen, pancreas, and adrenal glands appear unremarkable. The kidneys demonstrate no stones, mass, or hydronephrosis. The aorta is normal in caliber. There is no free fluid or adenopathy. Pelvis: The appendix is not identified. The uterus is anteverted. There are small cysts or follicles in both ovaries. There is no pelvic inflammation. The urinary bladder is unremarkable. There is no free fluid or adenopathy. IMPRESSION: No acute intra-abdominal process. No nephrolithiasis or hydronephrosis. Reviewed, Interpreted and Dictated by Raymond Holman MD Transcribed by Viv Marmolejo Authenticated by Raymond Holman MD on 09/27/2021 12:08:51 PM [facility]
--- NOTE | 2021-09-27 10:45 | HMH.EDGENADL ---
ED Disposition Clinical Impression: Right flank pain Disposition: Home, Self-Care Condition on Discharge: Good Referrals: Ananda Kaur MD [Primary Care Provider] - - Critical Care Critical Care Time: No Attestation: On 09/27/21, the high probability of a clinically significant, sudden or life threatening deterioration of the following system(s) required my full and direct attention, intervention and personal management. The time I documented below is in addition to time spent performing reported procedures but includes the following listed in this critical care notation. Medical Decision Making - Medical Records Medical records reviewed: Yes: I reviewed the patient's medical records. - Ru Inquiry Pt receiving controlled substance: No Vital Signs: 09/27/21 09:53 Temperature 98.5 F Temperature Source Oral Pulse Rate [Radial] 94 H Respiratory Rate 16 Blood Pressure [Right Arm] 135/84 Blood Pressure Mean [Right Arm] 101 Blood Pressure Position [Right Arm] Sitting 02 Sat by Pulse Oximetry 98 Oxygen Delivery Method Room Air - Lab Data Lab Results 09/27/21 10:06: WBC 4.8, RBC 4.37, Hgb 14.2, Hct 43.0, MCV 98.2, MCH 32.4 H, MCHC 33.0, RDW 12.2, Plt Count 243, MPV 8.8, Neut % (Auto) 50.9, Lymph % (Auto) 39.0, [place] % (Auto) 5.9, Eos % (Auto) 1.6, Baso % (Auto) 2.5 H, Neut # (Auto) 2.4, Lymph # (Auto) 1.9, [place] # (Auto) 0.3, Eos # (Auto) 0.1, Baso # (Auto) 0.1 09/27/21 10:06: Sodium 139, Potassium 3.7, Chloride 105, Carbon Dioxide 28, Anion Gap 9.7, BUN 9, Creatinine 0.70, Estimated Creat Clear 117, Estimated GFR 100, Est GFR ( Amer) 121, Glucose 86, Calcium 9.3, Total Bilirubin 0.8, AST 33, ALT 24, Alkaline Phosphatase 62, Total Protein 7.3, Albumin 4.4, Globulin 2.9, Albumin/Globulin Ratio 1.5 09/27/21 10:15: Urine Color Yellow, Urine Appearance Sl cloudy, Urine pH 5.5, Ur Specific [place] >= 1.030, Urine Protein Negative, Urine Glucose (UA) Negative, Urine Ketones Negative, Urine Blood 3+, Urine Nitrate Negative, Urine Bilirubin 1+ A, Urine Urobilinogen 0.2, Ur Leukocyte Esterase Negative, Urine RBC 10-20, Urine WBC Occasional, Ur Squamous Epith Cells None, Urine Bacteria Trace 09/27/21 10:15: Urine HCG, Qual Negative Result diagrams: 09/27/21 10:06 09/27/21 10:06 Orders (Tests/Meds): ED MEDICATIONS Discontinued Medications Generic Name Dose Route Start Last Admin Trade Name Freq PRN Reason Stop Dose Admin Sodium Chloride 1,000 mls @ 999 mls/hr 09/27/21 11:00 09/27/21 10:57 Sod Chlor 0.9% 1000ml Bag IV 09/27/21 12:00 999 mls/hr .Q1H1M MARIAMA Administration Iopamidol 75 ml 09/27/21 11:36 09/27/21 11:37 Iopamidol-370 (76%);100ml Bottle IV 09/27/21 11:37 75 ml ONCE ONE Administration Ketorolac Tromethamine 30 mg 09/27/21 10:45 09/27/21 10:56 Ketorolac 30mg/Ml Vial IV 09/27/21 10:46 30 mg ONCE ONE Administration Ondansetron HCl 4 mg 09/27/21 10:53 09/27/21 10:56 Ondansetron 4mg/2ml Vial IV 09/27/21 10:54 4 mg ONCE ONE Administration Sodium Chloride 10 ml 09/27/21 11:36 09/27/21 11:37 Sodium Chloride 0.9% 10ml Vial IV 09/27/21 11:37 10 ml ONCE ONE Administration - CT Data CT Scan: Abdomen, Pelvis Time Received: 13:30 Findings Narrative: CT abd/pelvis w/contrast: FINDINGS: Abdomen: The lung bases are clear. There are bilateral subglandular breast implants. The liver parenchyma is homogeneous. The gallbladder is present. The spleen, pancreas, and adrenal glands appear unremarkable. The kidneys demonstrate no stones, mass, or hydronephrosis. The aorta is normal in caliber. There is no free fluid or adenopathy. Pelvis: The appendix is not identified. The uterus is anteverted. There are small cysts or follicles in both ovaries. There is no pelvic inflammation. The urinary bladder is unremarkable. There is no free fluid or adenopathy. IMPRESSION: No acute intra-abdominal process. No nephrolithiasis or hyd
[2021-09-27 10:52] LABS: Bilirubin,Urine 1+ (Negative)
[2021-09-27 10:57] LABS: Bacteria,Urine Trace /lpf; WBC,Urine Occasional #/hpf (0-3)
[2021-09-27 10:57] LABS: Basophils # 0.1 K/mm3 (0-0.2); Basophils % 2.5 % (0.1-2.0); Eosinophils # 0.1 K/mm3 (0.0-0.4); Eosinophils % 1.6 % (0.1-12.0); Hemoglobin 14.2 g/dL (12.2-16.2); Lymphocytes # 1.9 K/mm3 (0.7-4.5); Mean Corpuscular Hemoglobin 32.4 pg (27.0-31.2); Mean Corpuscular Volume 98.2 fl (81-99); Mean Platelet Volume 8.8 fl (7.4-10.4); Monocytes # 0.3 K/mm3 (0.1-1.0); Monocytes % 5.9 % (1.7-9.3); Neutrophils # 2.4 K/mm3 (1.8-7.8); Neutrophils % 50.9 % (37.0-80.0); Platelet Count 243 K/mm3 (142-424); Red Blood Count 4.37 M/mm3 (4.20-5.40); Red Cell Distribution Width 12.2 % (11.5-17.5); White Blood Count 4.8 K/mm3 (4.8-10.8)
[2021-09-27 10:58] LABS: Alanine Aminotransferase 24 U/L (12-78); Albumin Level 4.4 g/dl (3.5-5.0); Albumin/Globulin Ratio 1.5 (1.1-1.8); Alkaline Phosphatase 62 U/L (38-126); Anion Gap 9.7 mEq/L (5-15); Aspartate Amino Transferase 33 U/L (14-36); Bilirubin,Total 0.8 mg/dl (0.2-1.3); Blood Urea Nitrogen 9 mg/dl (7-17); Calcium 9.3 mg/dl (8.4-10.2); Carbon Dioxide 28 mmol/L (22.0-30.0); Chloride 105 mmol/L (98-107); Creatinine Clearance Estimated 117 mL/min (50-200); Estimated Glomerular Filt Rate 100 ml/min (>60); GFR (African American) 121 ML/MIN (>60); Globulin 2.9 g/dL (1.3-3.2); Glucose 86 mg/dl (74-100); Potassium 3.7 mmoL/L (3.5-5.1); Sodium 139 mmol/L (136-145); Total Protein,Serum 7.3 g/dl (6.3-8.2)
[2021-09-27 14:02] VITALS: BP 130/88; PULSE 68; RESP 18; TEMP 36.8; O2SAT 99
== END 2021-09-27 14:02 | disposition home or self-care (01) ==
PROVIDERS: Emergency Provider Emergency Medicine; PCP Family Medicine
DX: R10.11 Right upper quadrant pain (principal); R50.9 Fever, unspecified; R11.0 Nausea
CPT/HCPCS: 71046; 74177; 80053; 81001; 81025; 85025; 96365; 99283; J2405; Q9967

== ENCOUNTER → 2021-10-12 12:13 | Outpatient (CLI) | payer BC, SELFPAY | PROVIDERS: PCP Family Medicine; Visit Provider Nurse Practitioner | DX: Z20.822 Contact with and (suspected) exposure to COVID-19 (principal) | CPT/HCPCS: C9803; U0003; U0005 ==

== ENCOUNTER 2022-10-28 08:05 | Emergency (ER) | payer BC, SELFPAY ==
[2022-10-28 08:30] VITALS: BP 141/80; PULSE 85; RESP 19; TEMP 36.6; O2SAT 99; BMI 24.9
[2022-10-28 08:44] LABS: Apearance,Urine Clear (Clear); Bilirubin,Urine Negative (Negative); Blood, Urine 3+ (Negative); Color,Urine Yellow (Yellow); Glucose,Urine (UA) Negative (Negative); Ketones,Urine Negative (Negative); PH,Urine 5.5 (5.0-8.5); Protein,Urine Negative (Negative); UTC Leukocyte Esterase,Urine Negative (Negative); UTC Nitrate,Urine Negative (Negative); Urobilinogen,Urine 1 EU/dl (0.2)
[2022-10-28 08:47] LABS: UTC Strep Screen (Rapid) Negative (Negative)
--- NOTE | 2022-10-28 08:54 | EXP.UTC ---
Discharge Plan Disposition Patient Disposition: Home, Self-Care Condition: Good Prescriptions Prescriptions: New cefdinir 300 mg capsule 300 mg PO BID Qty: 20 0RF Referrals Follow up/Referrals: Ananda Kaur MD [Primary Care Provider] - See instructions Activity Restrictions/Add. Instructions Additional Instructions/Restrictions: *Monitor Temp, Over the counter Motrin or Tylenol as directed/as needed Tylenol every 4 hours and Motrin every 6 hours (as long as your family doctor has told you that you can take it) for fever or pain. and straight to ER if unable to lower temp less than 101.0 after medication given *Warm salt water gargles may help to soothe the throat *Throat Lozenges? *Warm fluids like tea with honey may help to soothe the throat? *Sleep elevated *Humidifier/Vaporizer *Increase fluids. Water not Soda or Tea *Start antibiotic immediately and be sure to take as ordered for the FULL length of time although you should start to see improvement over the next 48 hours *Be SURE to follow up anytime for new or worsening symptoms with your family doctor. AND in 48 hours for urine culture results with your family doctor, if you do not have a doctor then you may call back to the [facility] for urine culture results and further treatment. We do recommend that you choose and establish care with a Primary Care Physician. ?AND follow up with them ?in 10-14 days to repeat UA to ensure infection is resolved and blood no longer present *Be sure to let your PCP know that we sent urine cultures from the [facility] so they can follow up to ensure that you area the on the correct antibiotic Call your doctor office and make appointment for 48 hours (2 days from today) ?to follow up and get the results of your urine culture and further treatment Your throat swab was sent for culture. Those results are typically sent to your primary care. Be sure to follow up in 2-3 days with your family doctor/primary care physician if no improvement so they can review those result and treat if necessary. If you don?t have a primary care doctor, I recommend you get one but in the mean time, you will have to return to a walk in clinic Follow up IMMEDIATELY for new or worsening symptoms or no Noticeable improvement over the next 48-72 hours. 911 for difficulty breathing or swallowing Clinical Impressions Clinical Impression: URI (upper respiratory infection) Qualifiers: URI type: unspecified URI Qualified Code(s): J06.9 - Acute upper respiratory infection, unspecified Instructions Patient Instructions: Sore Throat, DI for Urinary Tract Infection (UTI) Discharge ED Provider: Denise Amador [facility] HPI General Stated complaint: sore throat, congestion, runny nose Mode of Arrival: Ambulatory Source of Information: Patient Limitations: No Limitations Time Seen by Provider: 10/28/22 08:54 Description of Symptoms (Recalled from Triage Doc. by RN): PATIENT C/O SORE THROAT AND URINARY FREQUENCY X 3 DAYS. RECENTLY EXPOSED TO STREP HEENT Symptoms (Recalled from RN notes): Yes Resp Symptoms (Recalled from RN notes): No Skin Symptoms (Recalled from RN notes): No MS Symptoms (Recalled from RN notes): No Functional Status (Recalled from RN notes): WNL History of Present Illness Provider Complaint: Patient states that her daughter had strep throat last week now she has started with sore throat that has got worse over the last couple of days and thinks she may have a UTI States that she has been having achy like feeling in her lower back and feeling of urgency and frequency States that today when she wasnt feeling any better she came in to get checked Related Data Previous Rx's Medication Instructions Recorded cefdinir 300 mg capsule 300 mg PO BID #20 caps 10/28/22 Allergies Allergy/AdvReac Type Severity Reaction Status Date / Time chlorhexidine [CHLORHEXIDINE] Allergy Unknown I-RASH Verified 02/08/21 11:11 diphenhydramine Allergy Unknown
[2022-10-28 09:10] VITALS: BP 141/80; PULSE 85; RESP 19; TEMP 36.6; O2SAT 99
== END 2022-10-28 09:14 | disposition home or self-care (01) ==
PROVIDERS: Emergency Provider Nurse Practitioner; PCP Family Medicine
DX: J06.9 Acute upper respiratory infection, unspecified (principal)
CPT/HCPCS: 81003; 87880; 99212; 99213; G0463

== ENCOUNTER 2022-12-31 15:54 | Emergency (ER) | payer BC, SELFPAY ==
[2022-12-31 16:10] VITALS: BP 151/79; PULSE 88; RESP 20; TEMP 36.6; O2SAT 98; BMI 24.9
--- NOTE | 2022-12-31 16:18 | EXP.UTC ---
Discharge Plan Disposition Patient Disposition: Home, Self-Care Condition: Good Prescriptions Prescriptions: New phenazopyridine 200 mg Tablet 200 mg PO TID 2 Days Qty: 6 0RF sulfamethoxazole-trimethoprim [Bactrim DS] 800-160 mg Tablet 1 tab PO BID Qty: 14 0RF ondansetron 4 mg Tablet,Disintegrating 4 mg PO Q8H PRN (Reason: Nausea) Qty: 12 0RF Referrals Follow up/Referrals: Ananda Kaur MD [Primary Care Provider] - See instructions Activity Restrictions/Add. Instructions Additional Instructions/Restrictions: Drink plenty of fluids. Take tylenol or ibuprofen for pain or fever. Take the medications as directed. Follow up with your regular doctor. GO TO THE ER FOR ANY WORSENING SYMPTOMS The pyridium will make your urine turn orange, this is an expected side effect. It will stain your clothes if it comes into contact with them. We will culture the urine. That will tell what bacteria is causing your infection and which antibiotics will treat it best. Sometimes the first antibiotic we prescribe turns out to not work against different bacteria. So, make sure you follow up within 3 days if you are not getting better. Clinical Impressions Clinical Impression: UTI (urinary tract infection) Instructions Patient Instructions: Urinary Tract Infection, Urine Culture, DI for Urinary Tract Infection (UTI), Ondansetron, Phenazopyridine Discharge ED Provider: Antoni Quiroz [facility] General Stated complaint: possible UTI Mode of Arrival: Ambulatory Source of Information: Patient Limitations: No Limitations Time Seen by Provider: 12/31/22 16:08 Description of Symptoms (Recalled from Triage Doc. by RN): burning, and urgency to urinate HEENT Symptoms (Recalled from RN notes): No Resp Symptoms (Recalled from RN notes): No Skin Symptoms (Recalled from RN notes): No MS Symptoms (Recalled from RN notes): No Functional Status (Recalled from RN notes): n/a History of Present Illness Provider Complaint: She states that for the past 2 days she has had burning with urination and urgency to urinate. She also has some mild back pain and chilling. Related Data Previous Rx's Medication Instructions Recorded ondansetron 4 mg disintegrating 4 mg PO Q8H PRN Nausea #12 tabs 12/31/22 tablet phenazopyridine 200 mg tablet 200 mg PO TID 2 days #6 tabs 12/31/22 sulfamethoxazole 800 1 tab PO BID #14 tabs 12/31/22 mg-trimethoprim 160 mg tablet (Bactrim DS) Allergies Allergy/AdvReac Type Severity Reaction Status Date / Time chlorhexidine [CHLORHEXIDINE] Allergy Unknown I-RASH Verified 12/31/22 16:20 diphenhydramine Allergy Unknown UNABLE TO Verified 12/31/22 16:20 [From BENADRYL] URINATE Worker's Comp Is this a Worker's Comp case?: No [facility] Disclaimer: The information contained in this section may have been updated after the patient was seen, as this information can be updated by other users. Medical History Abnormal EKG Migraine Urinary tract infection Surgical History History of cholecystectomy Social History Smoking Status: Never smoker second hand exposure: No alcohol intake: never substance use type: denies use current occupational status: other Travel in the last 8 weeks: None household members: spouse and children [facility] caffeine: No ROS Obtained: Yes All systems reviewed & no additional complaints except as documented Constitutional Constitutional: Reports system reviewed and no additional complaints, except as documented, Denies chills and Denies fever(s) Eyes Eyes: Denies eye discharge ENT Ears, Nose, Mouth, and Throat: Denies dysphagia, Denies sore throat and Denies throat swelling Cardiovascular Cardiovascular: Denies chest pain and Denies dyspnea Respiratory Respirat
[2022-12-31 16:19] LABS: Apearance,Urine Cloudy (Clear); Bilirubin,Urine Negative (Negative); Blood, Urine 2+ (Negative); Color,Urine Dark Yellow (Yellow); Glucose,Urine (UA) Negative (Negative); Ketones,Urine Negative (Negative); PH,Urine 5.5 (5.0-8.5); Protein,Urine 1+ (Negative); UTC Leukocyte Esterase,Urine Negative (Negative); UTC Nitrate,Urine Negative (Negative); Urobilinogen,Urine 0.2 EU/dl (0.2)
[2022-12-31 17:22] VITALS: BP 151/79; PULSE 88; RESP 20; TEMP 36.6; O2SAT 98
== END 2022-12-31 17:11 | disposition home or self-care (01) ==
PROVIDERS: Emergency Provider Nurse Practitioner Family; PCP Family Medicine
DX: N39.0 Urinary tract infection, site not specified (principal); M54.50 Low back pain, unspecified
CPT/HCPCS: 81003; 87086; 99212; 99214; G0463

== ENCOUNTER → 2023-06-21 08:39 | Outpatient (CLI) | payer BC, SELFPAY ==
--- NOTE | 2023-06-21 08:41 | MR_ITS ---
FINAL REPORT TECHNIQUE: Multiplanar and multisequence imaging of the brain was obtained before and after contrast administration. CLINICAL HISTORY: DIZZINESS, MEMORY LOS, CONFUSION 14ml prohance injected FINDINGS: The gyri and sulci are within normal limits for age. There is no mass effect or midline shift. Signal intensity is normal. No hydrocephalus. The cerebellum and brainstem have an unremarkable appearance. The right cerebellar tonsil is low lying. There are no areas of restricted diffusion on diffusion weighted images to suggest acute infarct. Soft tissues are without acute abnormality. No pathologic contrast enhancement is identified. IMPRESSION: No acute intracranial abnormality and no pathologic contrast enhancement. Reviewed, Interpreted and Dictated by Tamela Gill MD Transcribed by Symone Thompson Authenticated and [facility]
== END ==
LOC: RAD 08:39
PROVIDERS: PCP Family Medicine; Visit Provider Physician Assistant
DX: R42 Dizziness and giddiness (principal); R55 Syncope and collapse; R41.3 Other amnesia; R41.0 Disorientation, unspecified; R53.83 Other fatigue
CPT/HCPCS: 70553; A9576

== ENCOUNTER 2023-08-25 02:25 | Emergency (ER) | payer BC, SELFPAY ==
[2023-08-25 02:27] VITALS: BP 146/95; PULSE 96; RESP 16; TEMP 36.8; O2SAT 99; BMI 24.9
[2023-08-25 02:38] VITALS: BMI 24.9
[2023-08-25 02:48] LABS: Basophils % 0.1 % (0.1-2.0); Eosinophils # 0.1 K/mm3 (0.0-0.4); Eosinophils % 0.6 % (0.1-12.0); Hematocrit 45.1 % (37.0-47.0); Hemoglobin 15.3 g/dL (12.2-16.2); Lymphocytes # 1.4 K/mm3 (0.7-4.5); Lymphocytes % 14.1 % (10-50); Mean Corpuscular HGB Conc 33.8 g/dL (31.8-35.4); Mean Corpuscular Hemoglobin 31.7 pg (27.0-31.2); Mean Corpuscular Volume 93.9 fl (81-99); Mean Platelet Volume 8.8 fl (7.4-10.4); Monocytes # 0.2 K/mm3 (0.1-1.0); Monocytes % 2.2 % (1.7-9.3); Platelet Count 281 K/mm3 (142-424); Red Blood Count 4.81 M/mm3 (4.20-5.40); Red Cell Distribution Width 12.5 % (11.5-17.5); White Blood Count 9.7 K/mm3 (4.8-10.8)
[2023-08-25 02:51] LABS: Chloride 105 mmol/L (98-107)
[2023-08-25 02:52] LABS: Potassium 4.2 mmoL/L (3.5-5.1); Sodium 139 mmol/L (136-145)
[2023-08-25 02:54] LABS: Alanine Aminotransferase 27 U/L (12-78); Alkaline Phosphatase 82 U/L (38-126); Aspartate Amino Transferase 32 U/L (14-36); Bilirubin,Total 0.7 mg/dl (0.2-1.3); Blood Urea Nitrogen 11 mg/dl (7-17); Creatinine Clearance Estimated 123 mL/min (50-200); Estimated Glomerular Filt Rate 99 ml/min (>60); GFR (African American) 120 ML/MIN (>60)
[2023-08-25 02:55] LABS: Albumin Level 5.1 g/dl (3.5-5.0); Albumin/Globulin Ratio 1.5 (1.1-1.8); Anion Gap 12.2 mEq/L (5-15); Calcium 9.4 mg/dl (8.4-10.2); Carbon Dioxide 26 mmol/L (22.0-30.0); Globulin 3.4 g/dL (1.3-3.2); Glucose 125 mg/dl (74-100); Total Protein,Serum 8.5 g/dl (6.3-8.2)
[2023-08-25 03:15] VITALS: BP 125/75; PULSE 110; O2SAT 100
--- NOTE | 2023-08-25 03:24 | HMH.EDGENADL ---
Discharge Plan Disposition Patient Disposition: Home, Self-Care Condition: Good Prescriptions Prescriptions: New prednisone 50 mg tablet 50 mg PO DAILY 5 Days Qty: 5 0RF epinephrine [EpiPen] 0.3 mg/0.3 mL auto-injector 0.3 mg IM Q10M PRN (Reason: anaphylaxis) Qty: 2 0RF Rx Instructions: for 2 doses No Action hydroxyzine HCl 25 mg tablet 25 mg PO PRN cholecalciferol (vitamin D3) 50 mcg (2,000 unit) capsule 50 mcg PO DAILY labetalol 100 mg tablet 100 mg PO BID Qty: 60 3RF Rx Instructions: 100 mg p.o. every morning for 3 days then 100 mg p.o. twice daily ondansetron 4 mg Tablet,Disintegrating 4 mg PO Q8H PRN (Reason: Nausea) Qty: 12 0RF Referrals Follow up/Referrals: Ananda Kaur MD [Primary Care Provider] - See instructions Activity Restrictions/Add. Instructions Additional Instructions/Restrictions: You were evaluated in the emergency department today. Please take Benadryl every 8-12 hours as needed for symptoms. I also recommend taking a daily allergy medication, such as Claritin or Zyrtec. 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 Stop taking the Medrol Dosepak. Follow-up with your primary care provider over the next 3 days for reassessment. You may benefit from referral to an index clerk. I have provided you with a prescription for an EpiPen just in case you have symptoms of anaphylaxis at home. Clinical Impressions Clinical Impression: Allergic reaction Qualifiers: Encounter type: initial encounter Qualified Code(s): T78.40XA - Allergy, unspecified, initial encounter Instructions Patient Instructions: DI for General Allergic Reactions Discharge ED Provider: Elizabeth Joseph General Adult HPI General Chief complaint: Allergic Reaction Stated complaint: Hives,lips and tongue swelling Time Seen by Provider: 08/25/23 02:35 Mode of Arrival: Ambulatory Source of Information: Patient Limitations: No Limitations Description of Symptoms (Recalled from ER Triage Doc. by RN): pt states started have rash/ hives allergic reaction on 08/22 then started dose pack on 08/23. tonight pt lower lip began swelling and tongue became itchy. pt took 50mg benadryl prior to arrival. History of Present Illness HPI narrative: This patient is a 28-year-old female who denies significant past medical history presenting to the emergency department for evaluation with concern for hives, lip swelling, and tongue tingling. She notes that this started tonight. She states that she started having hives intermittently on various parts of her body on 08/22. She was prescribed a Medrol Dosepak and was instructed to take Benadryl on 08/23, which she has been doing, but tonight her symptoms acutely worsened and she began to have tongue itchiness and tingling. She denies any difficulty breathing, difficulty swallowing, vomiting, change in bowel movements, but she does note nausea. She denies any known allergens. She states that she did start a new medication approximately a month ago, and she also got a hedgehog for her daughter. She denies any new foods, detergents, cosmetics, or other potential irritants that she can think of. She took 50 mg of Benadryl prior to arrival. Related Data Home Medications Medication Instructions Recorded Confirmed cholecalciferol (vitamin D3) 50 50 mcg PO DAILY 08/01/23 08/01/23 mcg (2,000 unit) capsule hydroxyzine HCl 25 mg tablet 25 mg PO PRN 08/01/23 08/01/23 Previous Rx's Medication Instructions Recorded ondansetron 4 mg disintegrating 4 mg PO Q8H PRN Nausea #12 tabs 12/31/22 tablet labetalol 100 mg tablet 100 mg PO BID Migraine prevention 08/01/23 #60 tabs epinephrine 0.3 mg/0.3 mL 0.3 mg (0.3 mL) IM Q10M PRN 08/25/23 injection, auto-injector (EpiPen) anaphylaxis #2 ea prednisone 50 mg tablet 50 mg PO DAILY 5 days #5 tabs 08/25/23 Allergies Allergy/AdvReac Type Severity Reaction S
[2023-08-25 04:39] VITALS: BP 117/70; PULSE 97; RESP 16; TEMP 36.6; O2SAT 100
== END 2023-08-25 04:40 | disposition home or self-care (01) ==
PROVIDERS: Emergency Provider Emergency Medicine; PCP Family Medicine
DX: T78.40XA Allergy, unspecified, initial encounter (principal); R22.0 Localized swelling, mass and lump, head
CPT/HCPCS: 80053; 85025; 96372; 96374; 96375; 99291

== ENCOUNTER 2023-08-25 12:41 | Emergency (ER) | payer BC, SELFPAY ==
[2023-08-25 13:10] VITALS: BP 129/77; PULSE 103; RESP 18; TEMP 37.3; O2SAT 98; BMI 21.4
--- NOTE | 2023-08-25 13:26 | EXP.UTC ---
Discharge Plan Disposition Patient Disposition: Home, Self-Care Condition: Good Prescriptions Prescriptions: New epinephrine 0.3 mg/0.3 mL auto-injector 0.3 mg IM ONCE Qty: 2 0RF Zyrtec 10 mg capsule 10 mg PO DAILY 30 Days Qty: 30 5RF famotidine [Pepcid] 20 mg tablet 20 mg PO DAILY 14 Days Qty: 14 0RF No Action hydroxyzine HCl 25 mg tablet 25 mg PO PRN cholecalciferol (vitamin D3) 50 mcg (2,000 unit) capsule 50 mcg PO DAILY labetalol 100 mg tablet 100 mg PO BID Qty: 60 3RF Rx Instructions: 100 mg p.o. every morning for 3 days then 100 mg p.o. twice daily prednisone 50 mg tablet 50 mg PO DAILY 5 Days Qty: 5 0RF epinephrine [EpiPen] 0.3 mg/0.3 mL auto-injector 0.3 mg IM Q10M PRN (Reason: anaphylaxis) Qty: 2 0RF Rx Instructions: for 2 doses methylprednisolone 4 mg tablets,dose pack See Rx Instructions .ROUTE .COMPLEX Patient Comments: TAKE BY MOUTH DIRECTED ON INSIDE OF PACKAGE Rx Instructions: taper medrol dose pack Referrals Follow up/Referrals: Ananda Kaur MD [Primary Care Provider] - See instructions Activity Restrictions/Add. Instructions Additional Instructions/Restrictions: Take the medications as directed. Follow up with your regular doctor. GO TO THE ER FOR ANY WORSENING SYMPTOMS Clinical Impressions Clinical Impression: Allergic reaction Instructions Patient Instructions: DI for General Allergic Reactions, Epinephrine Injection Discharge ED Provider: Antoni Quiroz [facility] General Stated complaint: lips swelling epi pen injection Time Seen by Provider: 08/25/23 13:26 History of Present Illness Provider Complaint: She states that about 30 minutes ago she began having generalized itching, swelling of her lips and tongue, and chest tightness. She has been recently been prescribed an epipen b/c she had a similar episode 2 days ago. She states that she used the epipen. She states that her symptoms have resolved, but she came in to be seen because that is what she was instructed to do. She denies any shortness of breath, itching, chest pain, and swelling of her mouth or throat. Related Data Home Medications Medication Instructions Recorded Confirmed cholecalciferol (vitamin D3) 50 50 mcg PO DAILY 08/01/23 08/01/23 mcg (2,000 unit) capsule hydroxyzine HCl 25 mg tablet 25 mg PO PRN 08/01/23 08/01/23 methylprednisolone 4 mg tablets in See Rx Instructions .Route .COMPLEX 08/25/23 a dose pack Previous Rx's Medication Instructions Recorded labetalol 100 mg tablet 100 mg PO BID Migraine prevention 08/01/23 #60 tabs cetirizine 10 mg capsule (Zyrtec) 10 mg PO DAILY 30 days #30 caps 08/25/23 epinephrine 0.3 mg/0.3 mL 0.3 mg (0.3 mL) IM ONCE #2 ea 08/25/23 injection, auto-injector epinephrine 0.3 mg/0.3 mL 0.3 mg (0.3 mL) IM Q10M PRN 08/25/23 injection, auto-injector (EpiPen) anaphylaxis #2 ea famotidine 20 mg tablet (Pepcid) 20 mg PO DAILY 2 weeks #14 tabs 08/25/23 prednisone 50 mg tablet 50 mg PO DAILY 5 days #5 tabs 08/25/23 Allergies Allergy/AdvReac Type Severity Reaction Status Date / Time chlorhexidine [CHLORHEXIDINE] Allergy Unknown I-RASH Verified 08/25/23 13:32 [facility] Disclaimer: The information contained in this section may have been updated after the patient was seen, as this information can be updated by other users. Medical History Abnormal EKG Migraine Urinary tract infection Surgical History History of cholecystectomy Social History Smoking Status: Never smoker second hand exposure: No alcohol intake: never substance use type: denies use current occupational status: other Travel in the last 8 weeks: None household members: spouse [facility] caffeine:
[2023-08-25 15:28] VITALS: BP 116/76; PULSE 81; RESP 18; TEMP 37.6; O2SAT 98
== END 2023-08-25 15:28 | disposition home or self-care (01) ==
PROVIDERS: Emergency Provider Nurse Practitioner Family; PCP Family Medicine
DX: T78.40XA Allergy, unspecified, initial encounter (principal)
CPT/HCPCS: 96372; 99212; 99214; G0463

== ENCOUNTER 2023-10-17 14:42 | Outpatient (CLI) | payer BC, SELFPAY ==
[2023-10-17 15:08] LABS: Basophils # 0.1 K/mm3 (0-0.2); Eosinophils % 0.6 % (0.1-12.0); Hematocrit 43.4 % (37.0-47.0); Hemoglobin 14.7 g/dL (12.2-16.2); Lymphocytes # 1.8 K/mm3 (0.7-4.5); Lymphocytes % 36.6 % (10-50); Mean Corpuscular HGB Conc 33.9 g/dL (31.8-35.4); Mean Corpuscular Hemoglobin 32.1 pg (27.0-31.2); Mean Corpuscular Volume 94.6 fl (81-99); Mean Platelet Volume 8.4 fl (7.4-10.4); Monocytes # 0.3 K/mm3 (0.1-1.0); Monocytes % 5.5 % (1.7-9.3); Neutrophils # 2.8 K/mm3 (1.8-7.8); Neutrophils % 56.3 % (37.0-80.0); Platelet Count 263 K/mm3 (142-424); Red Blood Count 4.59 M/mm3 (4.20-5.40); Red Cell Distribution Width 12.7 % (11.5-17.5); White Blood Count 4.9 K/mm3 (4.8-10.8)
[2023-10-17 15:31] LABS: Chloride 105 mmol/L (98-107); Sodium 140 mmol/L (136-145)
[2023-10-17 15:34] LABS: Alanine Aminotransferase 22 U/L (12-78); Albumin Level 4.6 g/dl (3.5-5.0); Albumin/Globulin Ratio 1.8 (1.1-1.8); Alkaline Phosphatase 74 U/L (38-126); Aspartate Amino Transferase 26 U/L (14-36); Bilirubin,Total 0.6 mg/dl (0.2-1.3); Blood Urea Nitrogen 7 mg/dl (7-17); Carbon Dioxide 26 mmol/L (22.0-30.0); Estimated Glomerular Filt Rate 99 ml/min (>60); GFR (African American) 120 ML/MIN (>60); Globulin 2.5 g/dL (1.3-3.2); Total Protein,Serum 7.1 g/dl (6.3-8.2)
[2023-10-17 15:35] LABS: Calcium 9.2 mg/dl (8.4-10.2); Glucose 96 mg/dl (74-100)
[2023-10-17 15:53] LABS: 25-OH Vitamin D, Total 33.8 ng/mL (30-100)
[2023-10-17 15:54] LABS: Free T4 (Free Thyroxine) 0.96 ng/dl (0.78-2.19)
[2023-10-17 16:04] LABS: Thyroid Stimulating Hormone 1.92 uIU/mL (0.465-4.68)
[2023-10-19 12:46] LABS: C1 Esterase Inhibitor 27 mg/dL (21-39)
[2023-10-19 17:14] LABS: F026-IgE Pork < 0.10 kU/L (Class 0); F027-IgE Beef < 0.10 kU/L (Class 0); F088-IgE Lamb < 0.10 kU/L (Class 0); Immunoglobulin E, Total 98 IU/mL (6-495); O215-IgE Alpha-Gal < 0.10 kU/L (Class 0)
[2023-10-20 17:10] LABS: C1 Est.Inhib.Funct. >93 (.)
[2023-10-25 10:49] LABS: Antinuclear Antibodies (ANA) NEGATIVE
== END 2023-10-17 23:59 ==
LOC: LAB 14:43
PROVIDERS: PCP Family Medicine; Visit Provider Allergy & Immunology
DX: T78.3XXA Angioneurotic edema, initial encounter (principal); L50.9 Urticaria, unspecified
CPT/HCPCS: 36415; 80053; 82306; 83520; 84439; 84443; 85025; 86038; 86161; 86225; 86235; 86352

== ENCOUNTER 2024-05-31 15:54 | Outpatient (CLI) | payer BC, SELFPAY ==
--- OUTSIDE RECORDS SUMMARY | 2024-05-31 15:56 | XMS_ITS ---
[facility] Address [address] [place] [id number] Care Team Providers Care Loom Stop Checker Name Role Phone Pato Kaur Primary Care Provider Lalita Mendez Unavailable [phone] ALLERGIES Allergen (clinical drug ingredient) Drug/Non Drug Allergy documented on EMR Reaction Allergy Type Onset Date Status diphenhydramine Benadryl Allergy cant urinate Drug Allergy Active REASON FOR VISIT abdominal pressure, mucus or blood with bowel movement MEDICATIONS Medication SIG (Take, Route, Frequency, Duration) Notes Start Date End Date Status Cephalexin 500 MG 1 capsule Orally blanca ry 6 hrs for 4 day(s) Active Mupirocin 2 % 1 application Machine Shop Worker ally Twice a day for 5 day(s) Active Sulfamethoxazole-Trimeth oprim 800-160 MG 1 tablet Orally Three times a Week for 10 day(s) Active Scopolamine 1 MG/3DAYS 1 patch to skin b ehind the ear as needed Transdermal every 72 hours 05/17/2024 Not-Taking Cetirizine HCl 10 MG 1 tablet Orally Active Famotidine 20 MG 1 tablet at bedtime as needed Orally Once a day Active ZyrTEC Allergy 10 MG 1 tablet Orally Onc e a day 08/28/2023 Active EpiPen 2-Reinaldo Active VITAL SIGNS Weight 159.6 lbs 05/31/2024 Blood pressure systolic 110 mm Hg 05/31/20 24 Blood pressure diastolic 70 mm Hg 024 Heart Rate 106 /min 05/31/2024 Height 64 in 05/31/2024 BMI 27.39 kg/m2 05/31/2024 Encounters Encounter Location Date Provider Diagnosis [facility] [address] [place] [id number] 05/31/2024 Lalita Mendez Chronic constipation K59.09 and Mucus in stool R19.5 ASSESSMENTS Encounter Date Diagnosis Assessment Notes Treatment Notes Treatment Clinical Notes 05/31/2024 Chronic constipation (ICD-10 - K59.09) 05/31/2024 Mucus in stool (ICD-10 - R19.5) PLAN OF TREATMENT Pending Test Test Name Order Date X ray : Abdomen-KUB with upright films 0 05/31/2024 Next Appt Details Provider Name:Lalita kelly, 05/31/2024 03:15:00 PM, [address], [address], [place], [id number], History and Physical Notes * HPI (History of Present Illness) Category Sub-Category Detail Notes Gastroenterology Abdominal Pain Pt presents today with abdominal pain and c/o mucus or blood with bowel movement. Pt sts the bleeding started and that there is a grayish white mucus in it as well. Pt sts she has upper abdominal pain and when eating or drinking she feels like she is going to throw and sts when she lays down it ocampo like acid reflux. Pt sts she has not had a bowel movement in 3 weeks. Pt sts she has always had stomach problems. Pt sts she had a colonoscopy in 2012, but nothing was found. Pt sts she usually will go a few weeks or months without having a BM unless she eats something that does not agree with her stomach. Pt also sts she has cellulitis in her left foot and would like to talk about that as well
--- OUTSIDE RECORDS SUMMARY | 2024-05-31 15:56 | XMS_ITS | Patient Health Record ---
Author Organization [facility] Address [address] [place] [id number] Care Team Providers Care Cement Mixer Name Role Phone Pato Kaur Primary Care Provider Cee Salas Unavailable [phone] Lalita Mendez Unavailable [phone] ALLERGIES Allergen (clinical drug ingredient) Drug/Non Drug Allergy documented on EMR Reaction Allergy Type Onset Date Status diphenhydramine Benadryl Allergy cant urinate Drug Allergy Active RESULTS Component Value Reference Range Notes CBC Venipuncture (in house) Reviewed date:06/16/2023 08:36:48 AM Interpretation: Performing Lab: Notes/Report: wbc 4.9 3.5 - 10 lymph 30.1 15 - 50 mid 6.6 2 - 15 gran 63.3 35 - 80 rbc 4.47 3.5 - 5.5 hgb 13.9 11.5 - 16.5 hct 41.1 35 - 55 mcv 91.9 75 - 100 mch 31.1 25 - 35 mchc 33.8 31 - 38 platlet 269 100 - 400 P-Vitamin B12 Reviewed date:06/16/2023 12:33:42 PM Interpretation:Normal Performing Lab: Notes/Report: Test performed by [facility] [address] [place] [address] , [address], [place] [address] Morro Guerra MD, Telecommunication Lines Repairer CLIA: [id number] Vitamin B12 138 378-9209 pg/mL P-Comprehensive Metabolic Pa osmar (CMP) Reviewed date:06/16/2023 12:33:42 PM Interpretation:Glu 108 Performing Lab: Notes/Report: Test performed by [facility] [address] [place] [address] , [facility] [place] [address] Morro Guerra MD, Telecommunication Lines Repairer CLIA: [id number] Sodium 140 135-145 mEq/L Potassium 4.1 3.5-5.3 mEq/L Chloride 107 97-108 mEq/L CO2 26 22-32 mEq/L Glucose 108 65-99 mg/dL BUN 8 6-20 mg/dL Creatinine 0.69 0.50-1.00 mg/dL Calcium 9.5 8.6-10.4 mg/dL eGFR by Creatinine 120 >59 mL/min/1.73m2 Protein 7.0 6.0-8.3 g/dL Albumin 4.7 3.5-5.3 g/dL Alkaline Phosphatase 74 35-121 IU/L ALT (SGPT) 15 <5-47 IU/L AST (SGOT) 15 <5-40 IU/L Bilirubin, Total 0.5 <0.2-1.2 mg/dL A/G Ratio 2.0 1.1-2.5 mg/dL A-S-Ahylycto Protein (CRP) Reviewed date:06/16/2023 12:33:42 PM Interpretation:Normal Performing Lab: Notes/Report: Test performed by [facility] [address] [place] [address] , [facility] [place] [address] Morro Guerra MD, Telecommunication Lines Repairer CLIA: [id number] C-Reactive Protein (CRP) 0.08 <0.50 mg/dL P-Sed Rate (ESR) Reviewed date:06/16/2023 12:33:42 PM Interpretation:Normal Performing Lab: Notes/Report: Test performed by [facility] [address] [place] [address] , [place] [address] Morro Guerra MD, Telecommunication Lines Repairer CLIA: [id number] Erythrocyte Sedimentation Ra te (ESR), Automated <2 <26 mm/hr P-TSH reflex to FT4 Reviewed date:06/16/2023 12:33:42 PM Interpretation:Normal Performing Lab: Notes/Report: Test performed by [facility] [address] [place] [address] , [place] [address] Morro Guerra MD, Telecommunication Lines Repairer CLIA: [id number] TSH reflex to FT4 1.47 0.43-5.25 mU/L P-Vitamin D 25-Hydroxy Reviewed date:06/16/2023 12:33:42 PM Interpretation:Vit D 21.9 Performing Lab: Notes/Report: Test performed by [facility] , [address], [place] [address] Morro Guerra MD, Telecommunication Lines Repairer CLIA: [id number] Vitamin D 25-Hydroxy 21.9 30.0-100.0 ng/mL Interpretation of Vitamin D 25 OH: < 20 ng/mL - Deficiency 20 - 29 ng/mL - Insufficiency 30 - 100 ng/mL - Sufficiency > 100 ng/mL - Super-therapeutic- toxicity may occur above this level. Clinical correlation required. MRI : Brain with and w/o con trast Reviewed date:06/22/2023 10:45:54 AM Interpretation:06/29 Performing Lab: Notes/Report: 06/29 REASON FOR REFERRAL Diagnosis 1 Allergic reaction (T 78.40XA) [facility] Referring Provider First Name Cee Referring Provider Last Name Josue Referring Provider Speciality Family [facility] ctice Referred Provider Process Stripper, . Referred Provider Specialty Allergy/Immu nology General Notes Cee Salas 10:00:57 AM > has had an allergic reaction requifring epi PEN; WOULD LIKE FOR HER TO HAVE AN APPT TODAY, Madeline Stevenson 08/28/2023 11:28:21 AM > pt will be see at 1130am today Referral Priority Routine MEDICATIONS Medication SIG (Take, Route, Frequency, Duration) Notes Start Date End Date Status Famotidine 20 MG 1 tablet at bedtime as needed Orally Once a day Active Cephalexin 500 MG 1 capsule Orally blanca ry 6 hrs for 4 day(s) Active Mupirocin 2 % 1 application Retanner ally Twice a day for 5 day(s) Active Sulfamethoxazole-Trimeth oprim 800-160 MG 1 tablet Orally Three times a Week for 10 day(s) Active Scopolamine 1 MG/3DAYS 1 patch to skin b ehind the ear as needed Transdermal every 72 hours 05/17/2024 Not-Taking Cetirizine HCl 10 MG 1 tablet Orally Active ZyrTEC Allergy 10 MG 1 tablet Orally Onc e a day 08/28/2023 Active EpiPen 2-Reinaldo Active SOCIAL HISTORY Sex Assigned At : Social History Observation Description Sex Assigned At Unknown PROBLEMS Problem Type ICD Code Onset Dates Problem Status W/U Status Risk SNOMED Code Notes Problem Memory loss (R41.3) Active confirmed 01595042 Problem Generalized anxiety disorder (F41.1) Active confirmed 29848323 Problem Intractable migraine without status migrainosus, unspecified migraine type (G43.919) Active confirmed 647239969 Problem Caliectasis determined by ultrasound of kidney (N28.89) Active confirmed 641703678 VITAL SIGNS Heart Rate 106 /min 05/31/2024 Blood pressure diastolic 70 mm Hg 05/31/2024 Height 64 in 05/31/2024 Blood pressure systolic 110 mm Hg 05/31/2024 Weight 159.6 lbs 05/31/2024 BMI 27.39 kg/m2 05/31/2024 Encounters Encounter Location Date Provider Diagnosis [facility] [address] [place], [place] [id number] 06/15/2023 Lalita Crowdong Dizziness R42 ; Fish ry loss R41.3 ; Confusion R41.0 ; Fatigue, unspecified type R53.83 ; Near syncope R55 and Neck muscle spasm M62.838 [facility] [address] [place], [place] [id number] 06/16/2023 Lalita Crowdy [facility] [address] [place], [place] [id number] 06/22/2023 Lalita Crowdy [facility] [address] [facility] [address] [place] [id number] 07/07/2023 Lalita Andrea Generalized anxiety disorder F41.1 and Intractable migraine without status migrainosus, unspecified migraine type G43.919 [facility] [address] [facility] [address] [place] [id number] 07/10/2023 Lalita Crowdy [facility] [address] [facility] [address] [place] [id number] 08/04/2023 Lalita Crowdy [facility] [address] [place] [id number] 08/23/2023 Lalita Mendez [facility] [address] [place] [id number] 08/28/2023 Cee Salas Allergic reaction T78.40XA [facility] [address] [place] [id number] 05/17/2024 Lalita Mendez [facility] [address] [place] [id number] 05/31/2024 Lalita Mendez Chronic constipation K59.09 and Mucus in stool R19.5 ASSESSMENTS Encounter Date Diagnosis Assessment Notes Treatment Notes Treatment Clinical Notes 06/15/2023 Dizziness (ICD-10 - R42) Discussed the case with Dr. Kaur. Will get labs and an MRI of the brain. 07/07/2023 Generalized anxiety disorder (ICD-10 - F41.1) 07/07/2023 Intractable migraine without status migrainosus, unspecified migraine type (ICD-10 - G43.919) 08/28/2023 Allergic reaction (ICD-10 - T78.40XA) pt to be seen at 1130 today at allergy clinic; additional prednisone ordered; she has taken her meds this AM; instructed to take another 50mg prednisone if rash spreads; to stop deoderant and body wash 05/31/2024 Chronic constipation (ICD-10 - K59.09) 05/31/2024 Mucus in stool (ICD-10 - R19.5) 06/15/2023 Memory loss (ICD-10 - R41.3) 06/15/2023 Confusion (ICD-10 - R41.0) 06/15/2023 Fatigue, unspecified type (ICD-10 - R53.83) 06/15/2023 Near syncope (ICD-10 - R55) 06/15/2023 Neck muscle spasm (ICD-10 - M62.838) PLAN OF TREATMENT Pending Test Test Name Order Date X ray : Abdomen-KUB with upright films 0 05/31/2024 Next Appt Details Provider Name:Lalita kelly, 05/31/2024 03:15:00 PM, [address], [place], [place], [id number], Insurance Providers Payer Name Payer Address Payer Phone Subscriber Number Group Number Insured Name Patient Relationship to Insured Coverage Start Date Coverage End Date [employer] [address] [place] [address] [id number] KI ENGEL Self - patient is the insured MEDICAL (GENERAL) HISTORY Medical History History ICD Code Migraines Surgical History Surgery Date(Month/Year) X 4 Umbilical Hernia LT Heel Cyst Remova [place] Teeth Extracted Breast Augmentation 12/01/2020 Hospitalization History Reason Date(Month/Year) [facility]- [facility] ER 07/28/2020
--- OUTSIDE RECORDS SUMMARY | 2024-05-31 15:56 | XMS_ITS ---
Author Organization [facility] Address [address] [facility] [address] [facility] [address] [place] [id number] Care Team Providers Care Helper Driver Name Role Phone Pato Kaur Primary Care Provider Lalita Mendez [phone] REASON FOR VISIT Message MEDICATIONS Medication SIG (Take, Route, Fr equency, Duration) Notes Start Date End Date Status Scopolamine 1 MG/3DAYS 1 patch to skin b ehind the ear as needed Transdermal every 72 hours 05/17/2024 Active Encounters Encounter Location Date Provider Diagnosis [facility] [address] [facility] [address] [facility] [address] [place] [id number] 05/17/2024 Lalita Mendez PLAN OF TREATMENT Medication Medication Name Sig Start Date Stop Date Notes Scopolamine 1 MG/3DAYS 1 patch to skin b ehind the ear as needed Transdermal every 72 hours 05/17/2024 Next Appt Details Provider Name:Lalita kelly, 05/31/2024 03:15:00 PM, [facility] [facility] [address] [facility], [address], [place], [id number],
--- OUTSIDE RECORDS SUMMARY | 2024-05-31 15:56 | XMS_ITS ---
Author Organization [facility] Address [address] [place] [id number] Care Team Providers Care Campground Hand Name Role Phone Pato Kaur Primary Care Provider [phone] Cee Salas Unavailable [phone] ALLERGIES Allergen (clinical drug ingredient) Drug/Non Drug Allergy documented on EMR Reaction Allergy Type Onset Date Status diphenhydramine Benadryl Allergy cant urinate Drug Allergy Active REASON FOR REFERRAL Diagnosis 1 Allergic reaction (T 78.40XA) [facility] Referring Provider First Name Cee Referring Provider Last Name Josue Referring Provider Speciality Family Pra ctice 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 Referred Provider Specialty Allergy/Immu nology General Notes Cee Salas 10:00:57 AM > has had an allergic reaction requifring epi PEN; WOULD LIKE FOR HER TO HAVE AN APPT TODAY, Madeline Stevenson 08/28/2023 11:28:21 AM > pt will be see at 1130am today Referral Priority Routine REASON FOR VISIT [facility] ER f/u MEDICATIONS Medication SIG (Take, Route, Frequency, Duration) Notes Start Date End Date Status hydrOXYzine HCl 25 MG 1 tab(s) Orally 4 times a day, prn 07/07/2023 Active Nurtec 75 MG 1 tablet on the tong ue and allow to dissolve Orally for 30 day(s) Not-Taking Vitamin D3 50 MCG (1999) 1 capsule Orally Once a day for 30 day(s) Not-Taking Nurtec 75 MG 1 tablet on the tong ue and allow to dissolve Orally daily, prn for migraine 07/07/2023 Not-Taking Imitrex 50 MG 1 tablet at least 2 hours between doses at onset of headache Orally once daily, prn 07/10/2023 Not-Takin g EpiPen 2-Reinaldo Active ZyrTEC Allergy 10 MG 1 tablet Orally Onc e a day 08/28/2023 Active Famotidine 20 MG 1 tablet at bedtime as needed Orally Once a day Active Cetirizine HCl 10 MG 1 tablet Orally Active Citalopram Hydrobromide 20 MG 1 tablet Orally Once a day 07/07/2023 Active predniSONE 50 MG 1 tablet Orally TID PRN 3 Active VITAL SIGNS Weight 146 lbs 08/28/2023 Blood pressure systolic 110 mm Hg 08/28/20 23 Blood pressure diastolic 68 mm Hg 023 Heart Rate 88 /min 08/28/2023 Height 64 in 08/28/2023 BMI 25.06 kg/m2 08/28/2023 Encounters Encounter Location Date Provider Diagnosis [facility] [address] [place], [place] [id number] 08/28/2023 Cee Salas Allergic reaction T78.40XA ASSESSMENTS Encounter Date Diagnosis Assessment Notes Treatment Notes Treatment Clinical Notes 08/28/2023 Allergic reaction (ICD-10 - T78.40XA) pt to be seen at 1130 today at allergy clinic; additional prednisone ordered; she has taken her meds this AM; instructed to take another 50mg prednisone if rash spreads; to stop deoderant and body wash PLAN OF TREATMENT Medication Medication Name Sig Start Date Stop Date Notes EpiPen 2-Reinaldo ZyrTEC Allergy 10 MG 1 tablet Orally Once a day 08/28/2023 Famotidine 20 MG 1 tablet at bedtime as needed Orally Once a day predniSONE 50 MG 1 tablet Orally TID PRN 08/28/2023 Treatment Notes Assessment Notes Allergic reaction pt to be seen at 113 0 today at allergy clinic; additional prednisone ordered; she has taken her meds this AM; instructed to take another 50mg prednisone if rash spreads; to stop deoderant and body wash Referrals Referral Date Details . 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 Next Appt Details Follow Up: prn, Reason: Provider Name:Lalita kelly, 05/31/2024 03:15:00 PM, [address], [address], [place], [place], [id number], Progress Notes * Examination Category Sub-Category Detail Notes General Examination Heart: RRR 70/min Lungs: CTAB A&P, good air e ntry bilaterally General Appearance: NAD, appears healthy , alert, pleasant Skin: welpy rash on legs; none on trunk, /arms , or face Neurologic Exam: alert and oriented Oral cavity: mucosa moist and WNL , no erythema History and Physical Notes * HPI (History of Present Illness) Category Sub-Category Detail Notes Dermatology rash welpy Hives Pt states broke out in hives on monday . Pt went to [facility] ER. 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
--- NOTE | 2024-05-31 16:00 | XR_ITS ---
FINAL REPORT CLINICAL HISTORY: CHRONIC CONSTIPATION x 3 weeks COMPARISON: None FINDINGS: SINGLE VIEW ABDOMEN A single view of the abdomen was obtained. There is a nonobstructive bowel gas pattern. A moderate to large amount of stool is present in the colon. There are no abnormally dilated loops of small bowel. No abnormal calcifications are identified. IMPRESSION: Nonobstructive bowel gas pattern, with a moderate to large stool burden. Reviewed, Interpreted and Dictated by Dada Dykes III, MD Transcribed by Meg Rivero Authenticated and [facility]
== END 2024-05-31 23:59 | disposition home or self-care (01) ==
LOC: RAD 15:54
PROVIDERS: PCP Family Medicine; Visit Provider Physician Assistant
DX: K59.09 Other constipation (principal)
CPT/HCPCS: 74018

== ENCOUNTER 2024-10-03 12:34 | Outpatient (CLI) | payer BC, SELFPAY | END 2024-10-03 23:59 | disposition home or self-care (01) | LOC: RT 12:37 | PROVIDERS: PCP Family Medicine; Visit Provider Family Medicine | DX: R00.2 Palpitations (principal) | CPT/HCPCS: 93225; 93227 ==

== ENCOUNTER 2024-10-08 11:02 | Outpatient (CLI) | payer BC, SELFPAY ==
--- NOTE | 2024-10-08 11:05 | CA_ITS ---
APPROVED REPORT EXAM: Comprehensive 2D, Doppler, and color-flow Echocardiogram Tractor Sweeper Driver: Misty Evans RVT Ht: 5 ft 4 in Wt: 165lbs BSA: 1.80 BP: 142/98 mmHg Indications: CP,PALPS,FATIGUE,SOA,ABN EKG TDS-PT HAS BREAST IMPLANTS M-Mode Dimensions RVDd 2.71 cm (0.9-2.6) LA Diam 2.89 cm (1.9-4.0) LVDd 4.02 cm (3.5-5.7) LVDs 2.48 cm (3.5-5.7) IVSd 1.17 cm (0.6-1.1) PWd 0.57 cm (0.6-1.1) EF (Teich) 69.10% FS 38.30% EDV (Teich) 70.80 mL ESV (Teich) 21.90 mL LV Diastology E Decel Time 150 (160-240 msec) E/A Ratio 1.2 Aortic Valve JAYME Index 1.03 cm2/m2 AoV Peak Petey. 83.0 (50-130 cm/s) AO Peak GR. 2.70 mmHg AO Mean GR. 1.40 (<5 mmHg) AO VTI 13.6 (18-25 cm) JAYME (VTI) 1.90 (2.5-4.5 cm2) Mitral Valve MV E Max Petey. 58.0 (40-130 cm/s) MV A Velocity 48.0 (40-130 cm/s) E/A Ratio 1.20 MV PHT 44.0 ms Pulmonary Valve PV Peak Velocity 68.0 (50-150 cm/s) Tricuspid Valve TR P. Velocity 225.00 cm/s RAP Estimate 10.00 mmHg RVSP 30.20 mmHg Left Ventricle The left ventricle is normal size. The left ventricular systolic function is low normal. There is normal left ventricular wall thickness. There is normal LV segmental wall motion. The left ventricular diastolic function is normal. LVEF is 50%. Right Ventricle Right ventricle is mildly dilated. Right ventricle is mildly hypokinetic. Atria The left atrium is normal in size. The right atrium size is normal. There is no Doppler evidence of interatrial shunt. Aortic Valve Aortic valve opens well. There is no aortic valvular stenosis. Trace aortic regurgitation. Mitral Valve The mitral valve is normal in structure. No evidence of mitral valve stenosis. Mild mitral regurgitation. Tricuspid Valve Tricuspid valve is grossly normal in structure and function. Trace tricuspid regurgitation. There is insufficient TR jet to estimate RVSP. Pulmonic Valve The pulmonary valve is normal in structure. Trace pulmonic regurgitation. Great Vessels The aortic root is normal in size. The ascending aorta is not well-visualized. IVC is normal in size and collapses >50% with inspiration. Pericardium There is no pericardial effusion. Other Information Study Quality: Fair Conclusion Normal LV systolic function (LVEF 50%). Mild RV dilation with mild reduction in RV function. Mild MR. Electronically signed by : Vashti Copeland MD 10/18/2024 23:27:41
== END 2024-10-08 23:59 | disposition home or self-care (01) ==
LOC: RT 11:03
PROVIDERS: PCP Family Medicine; Visit Provider Family Medicine
DX: I51.7 Cardiomegaly (principal); I34.0 Nonrheumatic mitral (valve) insufficiency; R07.9 Chest pain, unspecified
CPT/HCPCS: 93306

== ENCOUNTER 2024-11-05 13:12 | Outpatient (CLI) | payer BC, SELFPAY ==
--- NOTE | 2024-11-05 13:13 | CT_ITS ---
FINAL REPORT TECHNIQUE: Thin section axial CT with IV contrast supplemented with 3D reconstructed MIP images. This study was performed with techniques to keep radiation doses as low as reasonably achievable, (ALARA). Individualized dose reduction techniques using automated exposure control or adjustment of mA and/or kV according to the patient's size were employed. CLINICAL HISTORY: abnormal echo showing RV dilation COMPARISON: none FINDINGS: CTA CHEST WITH CONTRAST Pulmonary vessels enhance in a normal fashion without evidence of embolic disease. Thoracic aorta is normal in caliber without evidence of aneurysm or dissection. The RV-LV ratio is 1:1. No acute lung disease is present . No pleural or pericardial effusion is seen . No adenopathy or mass lesion is present . IMPRESSION: No pulmonary embolism or evidence of pulmonary arterial hypertension. Reviewed, Interpreted and Dictated by Charlie Bailon MD Transcribed by Christi Galeas Authenticated and [facility]
[2024-11-05] MEDS: 0.9 % SODIUM CHLORIDE 50 ML VIAL IV (13:38)
[2024-11-05] MEDS: SODIUM CHLORIDE 0.9% 10ML SYR (RAD ONLY) 10 ML IV (13:39)
[2024-11-05] MEDS: IOPAMIDOL-370 (76%);100ML BOTTLE 85 ML IV (13:39)
--- NOTE | 2024-11-05 13:42 | CA_ITS ---
FINAL REPORT CLINICAL HISTORY: Bilateral lower extremity edema FINDINGS: Multiple transverse and longitudinal scans were performed of the femoral popliteal deep venous system, with augmentation and compression maneuvers. Normal phasic flow was noted in the visualized deep venous system. No intraluminal increased echogenicity is noted to suggest thrombus. There is normal compression and augmentation of the venous structures. No abnormal venous collaterals are seen. IMPRESSION: No evidence of deep venous thrombosis of the bilateral lower extremities. Reviewed, Interpreted and Dictated by Charlie Bailon MD Transcribed by Christi Galeas Authenticated and [facility]
== END 2024-11-05 23:59 | disposition home or self-care (01) ==
LOC: RAD 13:13
PROVIDERS: PCP Family Medicine; Visit Provider Physician Assistant
DX: R60.0 Localized edema (principal); R93.1 Abnormal findings on diagnostic imaging of heart and coronary circulation; R06.00 Dyspnea, unspecified; R94.31 Abnormal electrocardiogram [ECG] [EKG]; R07.89 Other chest pain
CPT/HCPCS: 71275; 93970; Q9967

== ENCOUNTER 2024-11-11 09:42 | Outpatient (CLI) | payer BC, SELFPAY ==
--- NOTE | 2024-11-11 09:51 | CA_ITS ---
APPROVED REPORT EXAM: Limited 2D Echocardiogram with contrast Lithographic Plate Maker Apprentice: Berta Alfredo RDCS Ht: 5 ft 4 in Wt: 163lbs BSA: 1.79 BP: 131/95 mmHg Indications: ef check with bubbles M-Mode Dimensions RVDd 2.08 cm (0.9-2.6) LA Diam 1.83 cm (1.9-4.0) LVDd 4.63 cm (3.5-5.7) LVDs 3.37 cm (3.5-5.7) IVSd 0.72 cm (0.6-1.1) PWd 0.79 cm (0.6-1.1) EF (Teich) 53.00% FS 27.20% EDV (Teich) 98.80 mL TAPSE 2.15 (<1.7) ESV (Teich) 46.40 mL Other Information Study Quality: Fair Conclusion This is a limited TTE to evaluate for interatrial shunt. Limited windows were obtained. Agitated saline administration was performed. The left ventricle is normal in size. There is normal LV systolic function. The right ventricle is. There is grossly normal RV systolic function. Agitated saline administration demonstrates presence of of interatrial shunt. In the setting of positive bubble study, further evaluation with cardiac MRI (shunt protocol) + outpatient LARRY are suggested to evaluate for location, sizing, and hemodynamic effect of the interatrial shunt. Electronically signed by : Vashti Copeland MD 11/11/2024 12:45:15
== END 2024-11-11 23:59 | disposition home or self-care (01) ==
LOC: RT 09:42
PROVIDERS: PCP Family Medicine; Visit Provider Physician Assistant
DX: R93.1 Abnormal findings on diagnostic imaging of heart and coronary circulation (principal); R06.00 Dyspnea, unspecified; R60.0 Localized edema; R94.31 Abnormal electrocardiogram [ECG] [EKG]; R07.89 Other chest pain
CPT/HCPCS: 93308

== ENCOUNTER 2024-12-03 10:14 | Day surgery (SDC) | payer BC, SELFPAY ==
[2024-12-02 12:27] VITALS: BMI 28.1
[2024-12-03 11:12] VITALS: BP 146/91; PULSE 115; RESP 18; TEMP 37.1; O2SAT 98
[2024-12-03] MEDS: LACTATED RINGERS 1000ML 1,000 ML 50 ML IV (11:20)
[2024-12-03 11:25] LABS: Basophils # 0.1 K/mm3 (0-0.2); Basophils % 0.6 % (0.1-2.0); Eosinophils % 0.1 % (0.1-12.0); Hematocrit 42.6 % (37.0-47.0); Hemoglobin 14.6 g/dL (12.2-16.2); Lymphocytes # 1.5 K/mm3 (0.7-4.5); Lymphocytes % 17.9 % (10-50); Mean Corpuscular HGB Conc 34.3 g/dL (31.8-35.4); Mean Corpuscular Hemoglobin 30.9 pg (27.0-31.2); Mean Corpuscular Volume 90.3 fl (81-99); Mean Platelet Volume 10.2 fl (7.4-10.4); Monocytes # 0.4 K/mm3 (0.1-1.0); Neutrophils # 6.3 K/mm3 (1.8-7.8); Neutrophils % 76.2 % (37.0-80.0); Platelet Count 250 K/mm3 (142-424); Red Blood Count 4.72 M/mm3 (4.20-5.40); Red Cell Distribution Width 11.9 % (11.5-17.5); White Blood Count 8.3 K/mm3 (4.8-10.8)
--- NOTE | 2024-12-03 11:33 | ECG_ITS ---
APPROVED REPORT Exam: Resting ECG HR:90 bpm ECG Measurements Heart Rate 90 AXES AL 146 P 64 QRSd 84 QRS 59 QT 338 T 7 QTc 386 Conclusion SINUS RHYTHM POSSIBLE RIGHT VENTRICULAR CONDUCTION DELAY [RSR (QR) IN V1/V2] NONSPECIFIC T-WAVE ABNORMALITY BORDERLINE ECG UNCONFIRMED REPORT Electronically signed by : Sd Reyes MD 12/09/2024 08:56:44
[2024-12-03 11:35] LABS: INR 0.94 (0.9-1.1); Prothrombin Time 10.5 seconds (9.2-12.1)
[2024-12-03 11:37] LABS: Chloride 109 mmol/L (98-107); Potassium 3.4 mmoL/L (3.5-5.1); Sodium 140 mmol/L (136-145)
[2024-12-03 11:38] LABS: Urine Pregnancy, HCG Qual. Negative (Negative)
--- NOTE | 2024-12-03 11:38 | CA_ITS ---
APPROVED REPORT EXAM: Comprehensive 2D, Doppler, and color-flow Echocardiogram Environmental Aide: Misty EvansHIRAL Ht: 5 ft 4 in Wt: 163lbs BSA: 1.79 BP: 131/95 mmHg Indications: INTRATRIAL SHUNT SEEN ON BUBBLE STUDY,CP,ABN EKG,PALPS Procedure After obtaining informed consent, patient underwent transesophageal echo in the [facility]. Type of Sedation : MAC Sedation start time: 12:15 Case end Time: 12:35 The LARRY was performed without complications. Throughout the procedure, the blood pressure, pulse oximetry, cardiac rhythm, and rate were monitored. The patient tolerated the procedure without adverse effects. Recovery from conscious sedation was uneventful and vital signs were stable. Left Ventricle The left ventricle is normal size. The left ventricular systolic function is normal. The left ventricular ejection fraction is within the normal range. There is normal left ventricular wall thickness. There is normal LV segmental wall motion. LVEF is 55%. Right Ventricle The right ventricle is normal size. The right ventricular systolic function is normal. Atria The left atrium size is normal. No thrombus is visualized in the left atrium or appendage. The right atrium size is normal. Small PFO is noted. The PFO tunnel length is 9 mm, tunnel width is 1 mm. Color Doppler does not clearly demonstrate the interatrial shunt. Agitated saline administration (bubble study) demonstrates passage of bubbles from the right atrium into the left atrium with Valsalva maneuver within the first 3 cardiac cycles, consistent with interatrial shunt. Qp:Qs ratio 1.1 on LARRY (LVOT diameter 1.9 cm, LVOT VTI 18.3 cm, RVOT diameter 2.3 cm, RVOT VTI 13.3 cm). Aortic Valve The aortic valve is normal in structure. The aortic valve is trileaflet. There is no aortic valvular stenosis. No aortic regurgitation is present. Mitral Valve The mitral valve is normal in structure. No evidence of mitral valve stenosis. Trace mitral regurgitation. Tricuspid Valve Tricuspid valve is grossly normal in structure and function. Trace tricuspid regurgitation. There is insufficient TR jet to estimate RVSP. Pulmonic Valve The pulmonary valve is normal in structure. Trace pulmonic regurgitation. Great Vessels The aortic root is normal in size. The ascending aorta is normal in size. IVC is normal in size and collapses >50% with inspiration. Pericardium There is no pericardial effusion. Other Information Study Quality: Fair Conclusion Normal LV systolic function. Normal RV size and function. No significant valvular stenosis or regurgitation. Small PFO is noted. The PFO tunnel length is 9 mm, tunnel width is 1 mm. Color Doppler does not clearly demonstrate the interatrial shunt. Agitated saline administration (bubble study) demonstrates passage of bubbles from the right atrium into the left atrium with Valsalva maneuver within the first 3 cardiac cycles, consistent with interatrial shunt. Qp:Qs ratio is 1.1 on LARRY (LVOT diameter 1.9 cm, LVOT VTI 18.3 cm, RVOT diameter 2.3 cm, RVOT VTI 13.3 cm). In the setting of small PFO with otherwise normal cardiac size and function, further evaluation with cardiac MRI (cardiomyopathy/RV protocol) to evaluate for RA/RV size/function, as well as Qp:Qs ratio on CMR. Electronically signed by : Vashti Copeland MD 12/04/2024 15:13:27
[2024-12-03 11:40] LABS: Blood Urea Nitrogen 7 mg/dl (7-17); Creatinine Clearance Estimated 138 mL/min (50-200); Estimated Glomerular Filt Rate 98 ml/min (>60); GFR (African American) 119 ML/MIN (>60)
[2024-12-03 11:41] LABS: Anion Gap 11.4 mEq/L (5-15); Calcium 9.3 mg/dl (8.4-10.2); Carbon Dioxide 23 mmol/L (22.0-30.0); Glucose 89 mg/dl (74-100)
[2024-12-03 12:04] VITALS: O2SAT 100
[2024-12-03 12:33] VITALS: BP 110/74; PULSE 101; RESP 16; TEMP 36.3; O2SAT 98
--- NOTE | 2024-12-03 12:42 | EXP.ANES.CKL ---
[facility] Disclaimer: The information contained in this section may have been updated after the patient was seen, as this information can be updated by other users. Medical History Interatrial cardiac shunt Urinary tract infection Migraine Abnormal EKG Surgical History History of tubal ligation History of foot surgery History of breast augmentation History of wisdom tooth extraction History of hernia repair History of Family History Other No significant family history Social History (Updated 12/03/24 @ 11:13 by Jennifer Juarez RN) Smoking Status: Never smoker second hand exposure: No alcohol intake: never substance use type: denies use current occupational status: unemployed Travel in the last 8 weeks: None household members: spouse and children housing: [facility] caffeine: Yes Have you lived/traveled outside US in past 30 days?: No Contact w/someone who lives/traveled outside US past 30 days?: No Exposure to someone with infectious disease in past 14 days?: Yes Do you have a fever (greater than 100.4 F or 38 C)?: No Have you tested positive for COVID-19: No Exposed to someone with COVID-19 in past 14 days?: Yes Do you have a sore throat?: No Do you have a cough?: No Do you have any weakness?: No Are you experiencing any nausea/vomitting?: No Do you have any diarrhea?: No Are you experiencing any unusual bleeding?: No Do you have any muscle aches/pain?: No Do you have any abdominal pain?: No Are you experiencing loss of taste or smell?: No [facility] Anesthesia Checklist Patient Identification Patient Identification: Arm Band and Family Structural Data Admitted From: Home Planned Operative Procedure/s: LARRY Consent for Planned Operative Procedure(s) Verified: Yes Verified Documents: Surgical Consent and History and Physical NPO Status Verified Time NPO: 00:00 Additional verifications Patient : No Anesthesia Reactions: No Hx Blood Transfusions: No Blood Transfusion Reaction: No Cephalosporin Allergy: No Previous Colonoscopy: No Airway Assessment Mallampati Score:: Class II C-Spine Mobility Assessed: Yes TMJ Mobility Assessed: Yes Dentition: Good Dentition Neurological Assessment Level of Consciousness: Awake, Alert, Appropriate and Follows Commands Hx Seizures: No Numbness or tingling in extremities: No Anesthesia Plan Anesthesia Risk discussed: Yes ASA Class: II Anesthesia Type: MAC Preoperative Comments Pre-Operative Comments: Interatrial shunt
[2024-12-03 12:43] VITALS: BP 105/73; PULSE 94; RESP 16; O2SAT 96
[2024-12-03 12:53] VITALS: BP 114/74; PULSE 97; RESP 20; O2SAT 98
[2024-12-03 13:03] VITALS: BP 115/72; PULSE 90; RESP 20; O2SAT 98
== END 2024-12-03 13:13 | disposition home or self-care (01) ==
PROVIDERS: PCP Family Medicine; Visit Provider Internal Medicine
DX: Q24.8 Other specified congenital malformations of heart (principal); R60.0 Localized edema; R06.02 Shortness of breath; R93.1 Abnormal findings on diagnostic imaging of heart and coronary circulation; Z79.899 Other long term (current) drug therapy; Z88.8 Allergy status to other drugs, medicaments and biological substances
CPT/HCPCS: 80048; 81025; 85025; 85610; 93005; 93270; 93312; 93319; J7120

== ENCOUNTER 2024-12-20 21:24 | Emergency (ER) | payer BC, SELFPAY ==
[2024-12-20 21:42] VITALS: BP 135/84; PULSE 86; RESP 16; TEMP 36.8; O2SAT 98
[2024-12-20 21:48] VITALS: BP 124/76; PULSE 90; RESP 18; O2SAT 99
--- NOTE | 2024-12-20 22:12 | CT_ITS ---
PROCEDURE INFORMATION: Exam: CT Abdomen And Pelvis With Contrast Exam date and time: 12/20/2024 10:50 PM Age: 29 years old Clinical indication: Abdominal pain; Additional info: Ruq and right mid abdomen pain TECHNIQUE: Imaging protocol: Computed tomography of the abdomen and pelvis with contrast. Radiation optimization: All CT scans at this facility use at least one of these dose optimization techniques: automated exposure control; mA and/or kV adjustment per patient size (includes targeted exams where dose is matched to clinical indication); or iterative reconstruction. Contrast material: ISOVUE; Contrast volume: 75 ml; Contrast route: IV; COMPARISON: CT ABDOMEN PELVIS W CON 09/27/2021 11:25 AM FINDINGS: Liver: Normal. No mass. Gallbladder and biliary ducts: Normal. No calcified stones. No ductal dilation. Pancreas: Normal. No ductal dilation. Spleen: Normal. No splenomegaly. Adrenal glands: Normal. No mass. Kidneys and ureters: Normal. No hydronephrosis. Stomach and bowel: Large stool burden throughout the colon without inflammatory changes. Appendix: No evidence of appendicitis. Intraperitoneal space: Unremarkable. No free air. No significant fluid collection. Vasculature: Unremarkable. No abdominal aortic aneurysm. Lymph nodes: Left upper quadrant and mid abdominal multiple mesenteric nodes measuring greater than 5 mm in short axis are present, which can be seen with mesenteric adenitis. Urinary bladder: Unremarkable as visualized. Reproductive: Unremarkable as visualized. Bones/joints: Unremarkable. No acute fracture. Soft tissues: Bilateral breast implants intact. IMPRESSION: 1. Left upper quadrant and mid abdominal multiple mesenteric nodes measuring greater than 5 mm in short axis are present, which can be seen with mesenteric adenitis. 2. Large stool burden throughout the colon without inflammatory changes.
--- NOTE | 2024-12-20 22:13 | ED_ITS ---
Discharge Plan Disposition Patient Disposition: Home, Self-Care Prescriptions Prescriptions: New ondansetron 4 mg tablet,disintegrating 4 mg PO Q6H PRN (Reason: nausea and vomiting) 5 Days Qty: 20 0RF No Action furosemide [Lasix] 40 mg tablet 40 mg PO DAILY Qty: 30 2RF potassium chloride 20 mEq tablet extended release 20 meq PO DAILY Qty: 30 2RF Zyrtec 10 mg capsule 10 mg PO DAILY 30 Days Qty: 30 5RF famotidine [Pepcid] 20 mg tablet 20 mg PO DAILY 14 Days Qty: 14 0RF Referrals Follow up/Referrals: Ananda Kaur MD [Primary Care Provider] - See instructions Activity Restrictions/Add. Instructions Additional Instructions/Restrictions: No emergent medical condition identified today. Your CT scan was consistent with acute mesenteric adenitis which is likely the cause of your symptoms. This should be self resolving and is a common condition likely secondary or reactive to an infectious causative agent. Please keep yourself well-hydrated and return with any significant worsening of your symptoms. Clinical Impressions Clinical Impression: Acute mesenteric adenitis, Abdominal pain, RUQ, Nausea & vomiting Print Language Print Language: Surinamese Discharge ED Provider: Codie Swift General Adult HPI General Chief complaint: PAIN Stated complaint: V/N,right side pain Time Seen by Provider: 12/20/24 21:53 Mode of Arrival: Ambulatory Source of Information: Patient Description of Symptoms (Recalled from ER Triage Doc. by RN): c/o pain to right upper quad with vomiting x 3 hours. States pain started after eating [employer] History of Present Illness HPI narrative: 29-year-old female presenting today with I feel like symptoms are drawn with my gallbladder. States that she is never had any postprandial abdominal pain in the past but today she had some nausea and vomiting that significantly worsened after eating a meal. Denies any vomiting of any blood. Denies any melena or hematochezia. No fevers or chills. Has been recently worked up for dilated right ventricle and PFO but has no other significant past medical problems. Denies any shortness of breath or chest pain or any thoracic discomfort at the moment. Related Data Previous Rx's ?Medication ?Instructions ?Recorded cetirizine 10 mg capsule (Zyrtec) 10 mg PO DAILY 30 days #30 caps 08/25/23 famotidine 20 mg tablet (Pepcid) 20 mg PO DAILY 2 weeks #14 tabs 08/25/23 furosemide 40 mg tablet (Lasix) 40 mg PO DAILY edema #30 tabs 11/18/24 potassium chloride 20 mEq 20 meq PO DAILY with lasix #30 tabs 11/18/24 tablet,extended release ondansetron 4 mg disintegrating 4 mg PO Q6H PRN nausea and 12/20/24 tablet vomiting 5 days #20 tabs Allergies Allergy/AdvReac Type Severity Reaction Status Date / Time rimegepant (From [facility] ODT) Allergy Severe anaphylactic Verified 12/03/24 11:10 shock chlorhexidine (CHLORHEXIDINE) Allergy Unknown I-RASH Verified 12/03/24 11:10 diphenhydramine (From Allergy Unknown Verified 12/03/24 11:10 Benadryl) allergy reaction PFSH PFS Disclaimer: The information contained in this section may have been updated after the patient was seen, as this information can be updated by other users. Medical History (Updated 12/20/24 @ 23:43 by Codie Swift MD) Interatrial cardiac shunt Urinary tract infection Migraine Abnormal EKG Surgical History History of tubal ligation History of foot surgery History of breast augmentation History of wisdom tooth extraction History of hernia repair History of Family History Other No significant family history Social History (Updated 12/03/24 @ 11:13 by Jennifer Juarez RN) Smoking Status: Never smoker second hand exposure: No alcohol intake: never substance use type: denies use current occupational status: unemployed Travel in the last 8 weeks: None household members: spouse and children housing: condominium caffeine: Yes Have you lived/traveled outside US in past 30 days?: No Contact w/someone who lives/traveled outside US past 30 days?: No Exposure to someone with infectious disease in past 14 days?: No Do you have a fever (greater than 100.4 F or 38 C)?: No Have you tested positive for COVID-19: No Exposed to someone with COVID-19 in past 14 days?: No Do you have a sore throat?: No Do you have a cough?: No Do you have any weakness?: No Do you have any diarrhea?: No Are you experiencing any unusual bleeding?: No Do you have any muscle aches/pain?: No Do you have any abdominal pain?: Yes Are you experiencing loss of taste or smell?: No Other Medical History Have you received the Flu Vaccine for this season: No Have you received the Pneumonia Vaccine: No ROS Obtained: Yes All systems reviewed & no additional complaints except as documented Physical Exam General General appearance: alert and in no apparent distress Respiratory Respiratory exam: Present normal lung sounds bilaterally; Absent respiratory distress Cardiovascular Cardiovascular exam: Present regular rate and normal rhythm Abdominal Exam Abdominal exam: Present soft and tenderness (Right upper quadrant right mid abdomen tenderness to palpation no rebound or guarding no tenderness elsewhere) Neurological Exam Neurological exam: Present alert and oriented X3 Medical Decision Making Medical Records Screening: Per USPSTF and CDC recommendations, given the prevalence of disease in our region, it is our hospital?s policy to screen for HIV and viral Hepatitis for all patients aged 18 and over and those with ongoing risk factors. Ru Inquiry Pt receiving controlled substance: No Vital Signs: 12/20/24 21:42 12/20/24 21:48 Temperature 98.3 F Temperature Source Oral Pulse Rate 90 Pulse Rate [Right Brachial] 86 Respiratory Rate 16 18 Blood Pressure 124/76 Blood Pressure [Right Arm] 135/84 Blood Pressure Mean [Right Arm] 101 Blood Pressure Source [Right Arm] Automatic Cuff Blood Pressure Position [Right Arm] Sitting 02 Sat by Pulse Oximetry 98 99 Oxygen Delivery Method Room Air Room Air Lab Data Lab results reviewed: Yes I reviewed the patient's lab results. Lab Results 12/20/24 22:15: WBC 5.2, RBC 4.25, Hgb 13.2, Hct 38.1, MCV 89.6, MCH 31.1, MCHC 34.6, RDW 11.8, Plt Count 321, MPV 10.1, Neut % (Auto) 55.0, Lymph % (Auto) 35.7, [place] % (Auto) 8.1, Eos % (Auto) 0.6, Baso % (Auto) 0.6, Neut # (Auto) 2.9, Lymph # (Auto) 1.9, [place] # (Auto) 0.4, Eos # (Auto) 0.0, Baso # (Auto) 0.0, Sodium 140, Potassium 3.7, Chloride 107, Carbon Dioxide 25, Anion Gap 11.7, BUN 8, Creatinine 0.70, Estimated Creat Clear 4, Estimated GFR 98, Est GFR ( Amer) 119, Glucose 109 H, Calcium 9.4, Total Bilirubin 0.4, AST 23, ALT 17, Alkaline Phosphatase 67, Troponin I < 0.01, Total Protein 6.7, Albumin 4.1, Globulin 2.6, Albumin/Globulin Ratio 1.6, Lipase 80, Serum HCG, Qual Negative 12/20/24 22:15 12/20/24 22:15 Orders (Tests/Meds): ED MEDICATIONS Generic Name Dose Route Start Last Admin Trade Name Freq PRN Reason Stop Dose Admin Sodium Chloride 10 ml 12/20/24 23:00 12/20/24 23:04 Sodium Chloride 0.9% 10ml Syr (Rad Only) IV 01/19/25 22:59 10 ml NEEDED PRN Administration Maintain IV Site Discontinued Medications Generic Name Dose Route Start Last Admin Trade Name Freq PRN Reason Stop Dose Admin Lactated Ringer's 1,000 mls @ 999 mls/hr 12/20/24 22:15 12/20/24 22:20 Lactated Ringer's 1000 Ml Bag IV 12/20/24 23:15 999 mls/hr .Q1H1M MARIAMA Administration Iopamidol 75 ml 12/20/24 23:00 12/20/24 23:04 Iopamidol-370 (76%);100ml Bottle IV 12/20/24 23:01 75 ml ONCE ONE Administration Morphine Sulfate 4 mg 12/20/24 22:12 12/20/24 22:20 Morphine 4mg/Ml Syringe IV 12/20/24 22:13 4 mg ONCE ONE Administration Ondansetron HCl 4 mg 12/20/24 22:12 12/20/24 22:20 Ondansetron 4mg/2ml Vial IV 12/20/24 22:13 4 mg ONCE ONE Administration ORDERS Category Date Time Status CT abdomen pelvis w con Stat Cat Scan 12/20/24 22:12 Completed POCUS Point of Care (ER Only) Stat Exams 12/20/24 21:55 Completed CBC w/Auto Diff [Complete Blood Count Auto Diff] Stat Lab 12/20/24 22:15 Completed CMP [Comprehensive Metabolic Panel] Stat Lab 03/28/25 22:15 Completed HCG Qualitative, Serum Stat Lab 12/20/24 22:15 Completed Lipase Stat Lab 12/20/24 22:15 Completed Trop I [Troponin I] Stat Lab 12/20/24 22:15 Completed Troponin I Q3H Lab 12/21/24 01:15 Ordered Troponin I Q3H Lab 12/21/24 04:15 Ordered Medical Decision Narrative: 29-year-old female with right upper quadrant abdominal pain nausea and vomiting. Limited bedside ultrasound was unremarkable regarding her gallbladder and common bile duct which makes it very unlikely that this is her gallbladder causing symptoms at a minimum no evidence of cholecystitis. She could have biliary colic. Other things in the differential would be bowel obstruction gastritis or gastroenteritis. She does not have any cardiopulmonary symptoms today I do not suspect that this is involving those organ systems. Pancreatitis is on the differential as well. Appendicitis etc. Will get a contrasted CT scan for further evaluation and management. Initial workup has been initiated care be transitioned to Dr. Stevenson at [address] scan performed which I personally interpreted and did not appreciate any significant intra abdominal or pelvic pathology. Radiology read the CT scan and noted that there is significant mesenteric lymph nodes in the region of her pain consistent with mesenteric adenitis which is the working diagnosis. Patient's been made aware of this serial abdominal exams are benign she is feeling much better nausea medicine has been prescribed labs unremarkable. Patient discharged in stable improved condition return precautions emphasized. Procedures Miscellaneous Procedure Procedure Performed: Limited RUQ ultrasound Indication: Abdominal pain Identified structures: -Gallbladder -Gallbladder wall -Common bile duct -Liver Findings: Gallbladder visualized well normal in size no sludge or stones present anterior gallbladder wall is normal no pericholecystic fluid negative sonographic Peralta's common bile duct visualized and is normal Impression: Normal gallbladder and common bile duct Images were saved to permanent archive The study was technically adequate CPT 23107-22 This study was performed by me, and I personally interpreted all images/videos. Based on my clinical judgement, these images were adequate and did not necessitate further imaging. Critical Care Critical Care Time Critical Care Time: No
[2024-12-20] MEDS: LACTATED RINGERS 1000ML 1,000 ML 999 ML IV (22:20)
[2024-12-20] MEDS: MORPHINE 4MG/ML SYRINGE 4 MG IV (22:20)
[2024-12-20] MEDS: ONDANSETRON 4MG/2ML VIAL 4 MG IV (22:20)
[2024-12-20 22:25] LABS: Basophils % 0.6 % (0.1-2.0); Eosinophils % 0.6 % (0.1-12.0); Hematocrit 38.1 % (37.0-47.0); Hemoglobin 13.2 g/dL (12.2-16.2); Lymphocytes # 1.9 K/mm3 (0.7-4.5); Lymphocytes % 35.7 % (10-50); Mean Corpuscular HGB Conc 34.6 g/dL (31.8-35.4); Mean Corpuscular Hemoglobin 31.1 pg (27.0-31.2); Mean Corpuscular Volume 89.6 fl (81-99); Mean Platelet Volume 10.1 fl (7.4-10.4); Monocytes # 0.4 K/mm3 (0.1-1.0); Monocytes % 8.1 % (1.7-9.3); Neutrophils # 2.9 K/mm3 (1.8-7.8); Platelet Count 321 K/mm3 (142-424); Red Blood Count 4.25 M/mm3 (4.20-5.40); Red Cell Distribution Width 11.8 % (11.5-17.5); White Blood Count 5.2 K/mm3 (4.8-10.8)
[2024-12-20 22:32] LABS: Albumin Level 4.1 g/dl (3.5-5.0); Chloride 107 mmol/L (98-107); Sodium 140 mmol/L (136-145)
[2024-12-20 22:33] LABS: Potassium 3.7 mmoL/L (3.5-5.1)
[2024-12-20 22:34] LABS: HCG Qualitative, Serum Negative (Negative)
[2024-12-20 22:35] LABS: Alanine Aminotransferase 17 U/L (12-78); Albumin/Globulin Ratio 1.6 (1.1-1.8); Alkaline Phosphatase 67 U/L (38-126); Anion Gap 11.7 mEq/L (5-15); Aspartate Amino Transferase 23 U/L (14-36); Bilirubin,Total 0.4 mg/dl (0.2-1.3); Blood Urea Nitrogen 8 mg/dl (7-17); Calcium 9.4 mg/dl (8.4-10.2); Carbon Dioxide 25 mmol/L (22.0-30.0); Creatinine Clearance Estimated 4 mL/min (50-200); Estimated Glomerular Filt Rate 98 ml/min (>60); GFR (African American) 119 ML/MIN (>60); Globulin 2.6 g/dL (1.3-3.2); Glucose 109 mg/dl (74-100); Lipase 80 U/L (23-300); Total Protein,Serum 6.7 g/dl (6.3-8.2)
[2024-12-20 22:48] LABS: Troponin I < 0.01 ng/ml (0.00-0.034)
[2024-12-20] MEDS: SODIUM CHLORIDE 0.9% 10ML SYR (RAD ONLY) 10 ML IV (23:04)
[2024-12-20] MEDS: IOPAMIDOL-370 (76%);100ML BOTTLE 75 ML IV (23:04)
[2024-12-20 23:46] VITALS: BP 131/85; PULSE 82; RESP 20; TEMP 36.6; O2SAT 97
== END 2024-12-20 23:55 | disposition home or self-care (01) ==
PROVIDERS: Emergency Provider Student in an Organized Health Care Education/Training Program; PCP Family Medicine
DX: I88.0 Nonspecific mesenteric lymphadenitis (principal); R10.11 Right upper quadrant pain; R11.2 Nausea with vomiting, unspecified
CPT/HCPCS: 74177; 80053; 83690; 84484; 84703; 85025; 96361; 96374; 96375; 99285; J2270; J2405; J7120; Q9967

== ENCOUNTER 2024-12-26 08:35 | Outpatient (CLI) | payer BC, SELFPAY ==
--- NOTE | 2024-12-26 08:39 | US_ITS ---
FINAL REPORT TECHNIQUE: Multiple transverse and longitudinal images CLINICAL HISTORY: PAIN NAUSEA/VOMITING COMPARISON: CT of the abdomen and pelvis dated 12/21/2024 FINDINGS: The gallbladder shows no distention or stone disease. There is a tiny polyp on the posterior wall of the gallbladder, measuring 3 mm in size. No biliary ductal dilatation is appreciated. No fluid collections are seen. Limited portions of the right liver are unremarkable. Limited portions of the right kidney are unremarkable. IMPRESSION: 1. No evidence of cholelithiasis. A tiny polyp is present in the gallbladder, 3 mm in size, incidental. No further follow-up is required. 2. No acute upper abdominal abnormalities identified. Reviewed, Interpreted and Dictated by Charlie Bailon MD Transcribed by Meg Rivero Authenticated and [facility]
== END 2024-12-26 23:59 | disposition home or self-care (01) ==
PROVIDERS: PCP Nurse Practitioner Family; Visit Provider Nurse Practitioner Family
DX: R10.11 Right upper quadrant pain (principal)
CPT/HCPCS: 76705

== ENCOUNTER 2025-01-07 10:17 | Outpatient (CLI) | payer BC, SELFPAY ==
--- OUTSIDE RECORDS SUMMARY | 2025-01-07 10:19 | XMS_ITS | Continuity of Care Document ---
Author Organization [facility] Phone Care Team Providers Care Financial Aid Manager Name Role Phone NO, DEFINED P Unavailable Unavailable LJ BROWNE Admitting Unavailable LJ BROWNE Primary Attending Unavailable NO, DEFINED P Primary Care Unavailable ALLERGIES AND ADVERSE REACTIONS ALLERGIES AND ADVERSE REACTIONS Code System Allergy Substance Adverse Reaction Date Reaction (Severity) Comment Status Reported By Updated By [id number] RXNorm BENADRYL Rash Adverse reaction to substance kidneys shut down active [id number] on September 20, 2024 2:08:12 AM [facility] RESULTS Patient: JAMEL Garcia Date of : [birth year] 0 LABORATORY RESULTS ORDER 100: CBC AUTO W DIFF ( LOINC: 04721-2) ORDER DATE: September 20, 2024 2:08:00 AM UT Specimen Source: EDTA Specimen Type: Blood specime n with EDTA PERFORMING LAB: [place] [id number] [facility] [id number] Result Comment: Final Result Date: September 20, 2024 2:19:00 AM UT (TECH: AY) LOINC TEST FLAG RESULT REFERENCE RANGE UPDA TUTU BY 6690-2 Leukocytes [#/volume] in Blood by Automated count N 6.3 K/ul 4.0 K/ul - 10.5 K/ul September 20, 2024 2:19:00 AM UT (TECH: AY) 789-8 Erythrocytes [#/volume] in Blood by Automated count N 4.5 M/mm3 4.2 M/mm3 - 6.4 M/mm3 September 20, 2024 2:19:00 AM UTC (TECH: AY) 718-7 Hemoglobin [Mass/volume] in Blood N 13.8 gm/dl 12.5 gm/dl - 16.0 gm/dl September 20, 2024 2:19:00 AM UT (TECH: AY) 69242-7 Hematocrit [Volume Fraction] of Blood N 40.7 % 37.0 % - 47.0 % September 20, 2024 2:19:00 AM UTC (TECH: AY) 787-2 Erythrocyte mean corpuscular volume [Entitic volume] by Automated count N 91.1 fl 78 fl - 100 fl September 20, 2024 2:19:00 AM UTC (TECH: AY) 785-6 Erythrocyte mean corpuscular hemoglobin [Entitic mass] by Automated count N 30.9 pg 27 pg - 31 pg September 20, 2024 2:19:00 AM UTC (TECH: AY) 786-4 Erythrocyte mean corpuscular hemoglobin concentration [Mass/volume] by Automated count N 33.9 g/dl 32 g/dl - 36 g/dl September 20, 2024 2:19:00 AM UTC (TECH: AY) 43498-5 Erythrocyte distribution width [Ratio] N 12.1 % 11.5 % - 14.0 % September 20, 2024 2:19:00 AM UTC (TECH: AY) 777-3 Platelets [#/volume] in Blood by Automated count N 288 K/ul 150 K/ul - 450 K/ul September 20, 2024 2:19:00 AM UTC (TECH: AY) 61405-9 Platelet mean volume [Entitic volume] in Blood by Automated count H 9.9 fl 6 fl - 9.5 fl September 20, 2024 2:19:00 AM UTC (TECH: AY) 47100-3 Neutrophils/100 leukocytes in Blood N 52.8 % 43 % - 65 % September 20, 2024 2:19:00 AM UTC (TECH: AY) 736-9 Lymphocytes/100 leukocytes in Blood by Automated count N 37.3 % 20.5 % - 45.5 % September 20, 2024 2:19:00 AM UTC (TECH: AY) 5905-5 Monocytes/100 leukocytes in Blood by Automated count N 8.0 % 5.5 % - 11.7 % September 20, 2024 2:19:00 AM UTC (TECH: AY) 713-8 Eosinophils/100 leukocytes in Blood by Automated count N 1.1 % 0.9 % - 2.9 % September 20, 2024 2:19:00 AM UTC (TECH: AY) 706-2 Basophils/100 leukocytes in Blood by Automated count N 0.5 % 0.2 % - 1.0 % September 20, 2024 2:19:00 AM UT (TECH: AY) 06274-3 Immature granulocytes/100 leukocytes in Blood by Automated count N 0.3 % 0.0 % - 0.8 % September 20, 2024 2:19:00 AM UT (TECH: AY) 44060-2 Nucleated cells [#/volume] in Blood N 0.0 % September 20, 2024 2:19:00 AM UT (TECH: AY) 64775-2 Neutrophils [#/volume] in Blood N 3.3 K/uL 2.2 K/uL - 4.8 K/uL September 20, 2024 2:19:00 AM UT (TECH: AY) 731-0 Lymphocytes [#/volume] in Blood by Automated count N 2.3 CELL/MCL 1.3 CELL/MCL - 2.9 CELL/MCL September 20, 2024 2:19:00 AM UT (TECH: AY) 742-7 Monocytes [#/volume] in Blood by Automated count N 0.5 CELL/MCL 0.3 CELL/MCL - 0.8 CELL/MCL September 20, 2024 2:19:00 AM UT (TECH: AY) 711-2 Eosinophils [#/volume] in Blood by Automated count N 0.1 CELL/MCL 0 CELL/MCL - 0.2 CELL/MCL September 20, 2024 2:19:00 AM UT (TECH: AY) 704-7 Basophils [#/volume] in Blood by Automated count N 0.0 CELL/MCL 0.0 CELL/MCL - 1.0 CELL/MCL September 20, 2024 2:19:00 AM UT (TECH: AY) 39684-7 Immature granulocytes [#/volume] in Blood N 0.02 K/ul September 20, 2024 2:19:00 AM UT (TECH: AY) 75170-6 Nucleated cells [#/volume] in Blood N 0.00 K/uL September 20, 2024 2:19:00 AM [facility] (TECH: AY) 65375-3 Manual Differential panel - Blood N NO September 20, 2024 2:19:00 AM UT (TECH: AY) ORDER 200: COMP METABOLIC PA RISHI (LOINC: 29155-7) ORDER DATE: September 20, 2024 2:08:00 AM UT Specimen Source: PLASMA Specimen Type: Plasma specim en PERFORMING LAB: [address] [id number] Result Comment: Final Result Date: September 20, 2024 2:41:00 AM UT (TECH: AY) LOINC TEST FLAG RESULT REFERENCE RANGE UPDA TUTU BY 2951-2 Sodium [Moles/volume ] in Serum or Plasma N 142 mmol/L 136 mmol/L - 145 mmol/L September 20, 2024 2:41:00 AM UT (TECH: AY) 2823-3 Potassium [Moles/volume] in Serum or Plasma N 3.7 mmol/L 3.6 mmol/L - 5.0 mmol/L September 20, 2024 2:41:00 AM UT (TECH: AY) 5-0 Chloride [Moles/volume] in Serum or Plasma N 104 mmol/L 98 mmol/L - 107 mmol/L September 20, 2024 2:41:00 AM UT (TECH: AY) 2027-9 Carbon dioxide, tota l [Moles/volume] in Serum or Plasma N 26.7 mmol/L 21.0 mmol/L - 32.0 mmol/L September 20, 2024 2:41:00 AM UT (TECH: AY) 52901-5 Anion gap in Blood N 15.0 D ec2023 2:41:00 AM UT (TECH: AY) 2345-7 Glucose [Mass/volume ] in Serum or Plasma N 106 mg/dl 70 mg/dl - 120 mg/dl September 20, 2024 2:41:00 AM UT (TECH: AY) 6299-2 Urea nitrogen [Mass/volume] in Blood N 10 mg/dL 7 mg/dL - 18 mg/dL September 20, 2024 2:41:00 AM UT (TECH: AY) 21615-5 Creatinine [Moles/volume] in Blood N 1.0 mg/dL 0.6 mg/dL - 1.3 mg/dL September 20, 2024 2:41:00 AM UT (TECH: AY) 66996-8 Glomerular filtratio n rate/1.73 sq M.predicted by Creatinine-based formula (MDRD) N 78 mlpermin 60 mlpermin September 20, 2024 2:41:00 AM UT (TECH: AY) 2885-2 Protein [Mass/volume ] in Serum or Plasma N 7.5 g/dl 6.4 g/dl - 8.2 g/dl September 20, 2024 2:41:00 AM UT (TECH: AY) 1751-7 Albumin [Mass/volume ] in Serum or Plasma N 4.3 g/dl 3.4 g/dl - 5.0 g/dl September 20, 2024 2:41:00 AM UT (TECH: AY) 2336-6 Globulin [Mass/volum e] in Serum N 3.2 September 20, 2024 2:41:00 AM UT (TECH: AY) 1759-0 Albumin/Globulin [Ma ss Ratio] in Serum or Plasma N 1.3 0.7 - 2 September 20, 2024 2:41:00 AM UT (TECH: AY) 05797-1 Calcium [Mass/volume ] in Serum or Plasma N 8.8 mg/dl 8.5 mg/dl - 10.5 mg/dl September 20, 2024 2:41:00 AM UT (TECH: AY) 1975-2 Bilirubin.total [Mass/volume] in Serum or Plasma N 0.30 mg/dL 0.10 mg/dL - 1.00 mg/dL September 20, 2024 2:41:00 AM [facility] (TECH: AY) 1920-8 Aspartate aminotransferase [Enzymatic activity/volume] in Serum or Plasma N 8 U/L 0 U/L - 37 U/L September 20, 2024 2:41:00 AM [facility] (TECH: AY) 1742-6 Alanine aminotransferase [Enzymatic activity/volume] in Serum or Plasma N 20 U/L 0 U/L - 65 U/L September 20, 2024 2:41:00 AM UT (TECH: AY) 6768-6 Alkaline phosphatase [Enzymatic activity/volume] in Serum or Plasma N 84 U/L 46 U/L - 116 U/L September 20, 2024 2:41:00 AM [facility] (TECH: AY) ORDER 300: MAGNESIUM (LOINC: 99438-5) ORDER DATE: September 20, 2024 2:08:00 AM UT Specimen Source: PLASMA Specimen Type: Plasma specim en PERFORMING LAB: [address] [id number] Result Comment: Final Result Date: September 20, 2024 2:41:00 AM UTC (TECH: AY) LOINC TEST [place] [address]-3 Magnesium [Mass/volume] in Serum or Plasma N 2.0 MG/DL 1.8 MG/DL - 2.4 MG/DL September 20, 2024 2:41:00 AM UTC (TECH: AY) ORDER 400: TROPONIN I FOLLOW -UP HIGH SENS (LOINC: 09099-1) ORDER DATE: September 20, 2024 2:08:00 AM UTC Specimen Source: PLASMA Specimen Type: Plasma specim en PERFORMING LAB: [address] [id number] Result Comment: Final Result Date: September 20, 2024 5:07:00 AM UTC (TECH: RR) LOINC TEST [place] [address]-9 Troponin I.cardiac [Mass/volume] in Serum or Plasma N <4 ng/L 0 ng/L - 51 ng/L September 20 5:07:00 AM UTC (TECH: RR) ORDER 500: TROPONIN I QUANT HIGH SENS. (LOINC: 50826-3) ORDER DATE: September 20, 2024 2:08:00 AM UTC Specimen Source: PLASMA Specimen Type: Plasma specim en PERFORMING LAB: [address] [id number] Result Comment: Final Result Date: September 20, 2024 2:43:00 AM UTC (TECH: ME) LOINC TEST [place] [address]-9 Troponin I.cardiac [Mass/volume] in Serum or Plasma N <4 ng/L 0 ng/L - 51 ng/L September 20 2:43:00 AM UTC (TECH: ME) ORDER 1000: D-DIMER QUANT (L OINC: 13724-7) ORDER DATE: September 20, 2024 2:13:00 AM UTC Specimen Source: PLASMA Specimen Type: Plasma specim en PERFORMING LAB: [address] [id number] Result Comment: Final Result Date: September 20, 2024 2:35:00 AM UTC (TECH: AY) LOINC TEST [place] [address]-6 Fibrin D-dimer FEU [Mass/volume] in Platelet poor plasma N 0.24 mg/L 0.0 mg/L - 0.5 mg/L September 20, 2024 2:35:00 AM UT (TECH: AY) ORDER 1100: THYROID STIMULAT ING HORMONE (LOINC: 3016-3) ORDER DATE: September 20, 2024 2:17:00 AM UT Specimen Source: PLASMA Specimen Type: Plasma specim en PERFORMING LAB: [address] [id number] Result Comment: Final Result Date: September 20, 2024 2:49:00 AM UT (TECH: ME) [facility] TEST FLAG RESULT REFERENCE RANGE UPDA TUTU BY 3016-3 Thyrotropin [Units/volume] in Serum or Plasma N 1.93 mIU/L 0.36 mIU/L - 3.74 mIU/L September 20, 2024 2:49:00 AM UT (TECH: ME) LABORATORY NARRATIVE RESULTS Information is not available RADIOLOGY RESULTS ORDER 600: CHEST PORTABLE (L OINC: 37929-6) ORDER DATE: September 20, 2024 2:08:00 AM UT PERFORMING LAB: [address] [id number] Final Result Date: September 20, 2024 3:49:[address] [address] Name: KI MCCULLOUGH Exam Date: 09/19/2024 : 1995 Age 29 years Gender: F Physician: MICHELEL CEE Facility: [facility] Facility HSV: Outpatient Exam: CHEST PORTABLE FINAL REPORT TECHNIQUE: null CLINICAL HISTORY: Chest Pain w/o Trauma/Injury COMPARISON: null FINDINGS: Chest X-ray, 1 View COMPARISON: None FINDINGS: No consolidation. No pleural effusion. No pneumothorax. No cardiomegaly. No acute fracture. IMPRESSION: IMPRESSION: No acute findings. Authenticated and [facility] Dictated By: Jared Ohara Transcribed By: Transcribed On: 09/19/2024 10:49 PM Electronically signed by: Jared Ohara 09/19/2024 Thank you for referring JAMEL KI to [facility]. Legally authenticated by COURTNEY SAINI 2024-09-19 22:49:14 PATHOLOGY NARRATIVE RESULTS Information is not available MICROBIOLOGY RESULTS No Micro Labs/Results Exist for Patient BLOOD ADMIN RESULTS Information is not available MEDICATIONS HOME MEDICATIONS Status RXNORM NDC Medication Dose Route Frequency Dates Comments Reported By Updated By Drug Treatment Unknown DISCHARGE MEDICATIONS Status RXNORM NDC Medication Dose Route Frequency Dates Comments Physician Updated By No Discharge Medication Info rmation Available INPATIENT MEDICATIONS Status RXNORM NDC Medication Dose Route Frequency Rat e Quantity Dates Comments Physician Updated By No Inpatient Medication Info rmation Available SOCIAL HISTORY SOCIAL HISTORY SNOMED-CT Social History Element Description Effective Dates Offered Cessation Comment UpdatedBy [id number] Current Tobacco smoking status Unknown If Ever Smoked [id number] on September 20, 2024 2:08:25 AM [facility] [id number] Historical Tobacco smoking status Never Smoked [id number] on December 05, 2013 1:39:32 PM [facility] SOCIAL HISTORY - Gender Sex: Female SOCIAL HISTORY - Status : status i nformation is not available Intention in Next Year: intention information is not available SOCIAL HISTORY - Sexual Behavior Sexual Orientation Gender Identity SNOMED-CT Description SNO MED -CT Description Activity Level No of Partners Partner Type UpdatedBy Information is not available VITAL SIGNS PATIENT VITAL SIGNS This section displays the mo st recent value for each vital sign as of September 25, 2024 4:11:05 AM [facility] Loinc Code Vital Sign Activity Date Result Updated By 8310-5 Body temperature September 20 2:04:00 AM UT 97.8 [degF] [id number] on September 20, 2024 2:07:08 [place] [address]-9 Body weight Measured August 2:07:09 AM UTC 70.4 kg (155.0 lb) [id number] on September 20, 2024 2:07:09 AM UT 8462-4 Diastolic blood pressure September 20, 2024 2:04:00 AM UT 91.0 mm[Hg] [id number] on September 20, 2024 2:07:08 AM UT 8867-4 Heart rate September 20 5:35:00 AM [facility] 75 /min [id number] on September 20, 2024 5:38:44 AM [facility] 34722-6 Oxygen saturation in Arterial blood by Pulse oximetry September 20, 2024 5:35:00 AM [facility] 98.0 % [id number] on September 20, 2024 5:38:44 AM [facility] 9279-1 Respiratory rate September 20 5:35:00 AM [facility] 25 /min [id number] on September 20, 2024 5:38:44 AM [facility] 8480-6 Systolic blood pressure September 20, 2024 2:04:00 AM [facility] 143.0 mm[Hg] [id number] on September 20, 2024 2:07:08 AM [facility] PEDIATRIC GROWTH CHART - VITAL SIGNS This section displays Head C ircumference Percentile, Weight for Length Percentile and BMI Percentile Loinc Code Pediatric Measure Age (Months) Result Updat ed By No Pediatric Growth Chart Pe rcentile Information Available. HEALTH CONCERNS Problems Concern Status Health Concern problem infor mation not available. Smoking Status Status Years Used Consumed packs p er day Health Concern smoking histo ry information not available. Family History Concern Status Health Concern family histor y information not available. ENCOUNTERS ENCOUNTER INFORMATION Reason for Visit CHEST PAIN Admission September 20, 2024 1:49:[address] [id number] Discharge September 20, 2024 5:39:00 AM [facility] DISCHARGED TO HOME OR SELF CARE ENCOUNTER DIAGNOSES Notes information is not brad ilable. Code System Diagnosis Onset Date Diagnosis information is not available. ABSTRACT DIAGNOSES Code System Diagnosis Updated By M54.2 ICD10 CERVICALGIA [id number] on 2024 4:10:17 AM [facility] M25.512 ICD10 PAIN IN LEFT SHOULDER [id number] 0 on September 25, 2024 4:10:17 AM [facility] R11.2 ICD10 NAUSEA WITH VOMITING, UNSPEC IFIED [id number] on September 25, 2024 4:10:17 AM [facility] R07.9 ICD10 CHEST PAIN, UNSPECIFIED [id number] 630 on September 25, 2024 4:10:17 AM [facility] Z88.8 ICD10 ALLERGY STATUS T O OTHER DRUGS, MEDICAMENTS AND BIOLOGICAL SUBSTANCES [id number] on September 25, 2024 4:10:17 AM [facility] CARE TEAM Care Financial Aid Manager Role DEFINED NO Referring LJ BROWNE Admitting LJ BROWNE Primary Attending DEFINED NO Primary Care CARE TEAM CARE oil extractor Role on Team Status Start Date End Date Update d By NO DEFINED PRIMARY C Referring normal September 20, 2024 1:56:33 AM [facility] September 20, 2024 5:39:00 AM [facility] [id number] on September 20, 2024 1:56:33 AM [facility] PAVAN TORRES Attending normal September 20, 2024 1:56:32 AM [facility] September 20, 2024 5:39:00 AM [facility] [id number] on September 20, 2024 1:56:33 AM [facility] PAVAN TORRES Admitting normal September 20, 2024 1:56:32 AM [facility] September 20, 2024 5:39:00 AM [facility] [id number] on September 20, 2024 1:56:33 AM [facility] NO DEFINED PRIMARY C PCP normal September 20, 2024 1:49:12 AM [facility] September 20, 2024 5:39:00 AM [facility] [id number] on September 20, 2024 1:56:33 AM [facility]
--- NOTE | 2025-01-07 10:30 | MR_ITS ---
APPROVED REPORT Transition Specialist: CLINICAL INDICATION Evaluation for interatrial shunt TECHNIQUE Image Acquisition: Cardiac magnetic resonance (CMR) was performed on Siemens Espree MRI 1.5T scanner. Software platform sequences were performed using the Siemens Liftago MR B19 platform. A set of three-plane, low-resolution, large ggowj-nz-lfiw localizers were initially acquired. Then axial, coronal, sagittal TrueFISP, as well as axial HASTE images, were obtained. These were followed by gated TrueFISP breathold cinematic sequences obtained in the short axis with 8 mm slices and 2 mm gaps, 2-chamber (vertical long axis), 3-chamber, 4-chamber (horizontal long axis). A bolus of contrast was injected intravenously with first-pass sequences obtained in the short axis and four-chamber planes. After approximately 10 minutes, a TI water commissioner sequence was performed to determine the optimal TI time. Using the optimized TI time, delayed contrast enhancement segmented inversion???recovery TurboFLASH sequences were obtained in the short axis, 2-chamber, 3-chamber, and 4-chamber projections. 2D-velocity phase mapping was performed. Functional parameters were calculated by offline analysis on an independent workstation (AVA[employer]ai Imaging Platform, CVIAAMPP). Contrast: ProHance??? (Gadoteridol) FINDINGS MORPHOLOGY AND FUNCTION Left ventricle: The left ventricle is normal in size. The indexed left ventricular end-diastolic volume (LVEDVi) is 56 ml/m2 (reference range 57-105 ml/m2 in males, 56-96 ml/m2 in females). Normal left ventricular systolic function is present. There is normal left ventricular wall thickness. There are no regional wall motion abnormalities noted. LVEF is calculated at 62.5% (reference range 57-77%). Right ventricle: The right ventricle is normal in size. The indexed right ventricular end-diastolic volume (RVEDVi) is 60 ml/m2 (reference range 61-121 ml/m2 in males, 48-112 ml/m2 in females). Low-normal right ventricular systolic function is present. RVEF is calculated at 50.0% (reference range 52-72% in males, 51-71% in females). Atria: The left atrium is normal in size. The maximum indexed left atrial volume is 20 ml/m2 (reference range 26-52 ml/m2 in males, 27-53 ml/m2 in females). The right atrium is normal in size. The maximum indexed right atrial volume is 17 ml/m2 (reference range 18-90 ml/m2). Aorta: The diameter of the aortic annulus is normal, measuring 21 mm (coronal view reference range 21-30 mm in males, 19-27 mm in females). The diameter of the aortic sinus is normal, measuring 26 mm (coronal view reference range 25-42 mm in males, 24-36 mm in females). The diameter of the sinotubular junction is normal, measuring 22 mm (coronal view reference range 18-32 mm in males, 18-28 mm in females). The diameters of the ascending and descending thoracic aorta are normal. Main pulmonary artery: The main pulmonary artery diameter is normal. Pericardium: The pericardial thickness is normal. The pericardial thickness measures 2.0 mm (normal < 4.0 mm). There is no pericardial effusion. VALVES The valvular morphologies in the visualized sequences appear normal. There is no significant valvular stenosis or regurgitation of the mitral, aortic, tricuspid, or pulmonic valve noted visually. Systolic anterior motion of the mitral valve is not visualized. Ratio of pulmonary to systemic flow, Qp:Qs ratio = 0.8 (normal < or = 1.2, hemodynamically significant shunt > 1.5), demonstrating no evidence of hemodynamically significant shunt. TISSUE CHARACTERIZATION Resting Perfusion: Normal myocardial blood flow at rest. No evidence of resting hypoperfusion. Myocardial Fibrosis and/or edema: Normal gadolinium kinetics are present. No evidence of late gadolinium enhancement is noted, consistent with absence of myocardial scarring, infarction, or necrosis. T2-weighted imaging demonstrates no evidence of myocardial edema or inflammation. OTHER Breast implants bilaterally. IMPRESSION Normal LV size with normal LV systolic function. LVEDVi= 56 ml/m2 and LVEF= 62.5%. Normal RV size with normal RV systolic function. RVEDVi= 60 ml/m2 and RVEF= 50.0%. No atrial enlargement. No CMR evidence of myocardial scarring, infarction, or necrosis. No evidence of myocardial edema or inflammation. Perfusion analysis demonstrates normal blood flow at rest with no evidence of resting hypoperfusion. Ratio of pulmonary to systemic flow, Qp:Qs ratio = 0.8 (normal < or = 1.2, hemodynamically significant shunt > 1.5), demonstrating no evidence of hemodynamically significant shunt. Overall, this CMR demonstrates normal biventricular size and systolic function. Qp:Qs ratio is normal, suggestive of absence of a hemodynamically significant interatrial shunt. COMPARISON None CRITICAL RESULT None COMMUNICATION Per this written report The findings of this cardiac MR were reviewed, reported, and signed by Surendra Copeland MD (Software Client Architect). Conclusion Electronically signed by : Vashti Copeland MD 01/16/2025 11:40:50
[2025-01-07] MEDS: SODIUM CHLORIDE 0.9% 10ML SYR (RAD ONLY) 10 ML IV (11:09)
[2025-01-07] MEDS: 0.9 % SODIUM CHLORIDE 50 ML VIAL 20 ML IV (11:09)
[2025-01-07] MEDS: GADOTERIDOL INJ 20ML SYRINGE 16 ML IV (11:09)
== END 2025-01-07 23:59 | disposition home or self-care (01) ==
LOC: RAD 10:18
PROVIDERS: PCP Family Medicine; Visit Provider Physician Assistant
DX: R93.1 Abnormal findings on diagnostic imaging of heart and coronary circulation (principal)
CPT/HCPCS: 75561; A9576

== ENCOUNTER 2025-05-12 11:25 | Emergency (ER) | payer BC, SELFPAY ==
[2025-05-12 11:41] VITALS: BP 151/99; PULSE 93; RESP 16; TEMP 36.7; O2SAT 98; BMI 27.6
--- OUTSIDE RECORDS SUMMARY | 2025-05-12 11:46 | XMS_ITS | Clinical Summary ---
Author Organization [facility] Address [address] [place] [address] Care Team Providers Care Communications Planner Name Role Phone Provider, No Known Primary Care Provider Unavail able Allergies Active Allergy Reactions Criticality Noted Date Comments Diphenhydramine Urinary Retention High 10/01/2016 Povidone Iodine Rash Low 11/25/2016 Chlorhexidine Hives 10/01/2016 Medications Vit-Fe Fumarate-FA ( 27-1) 27-1 MG tablet tablet Take 1 tablet by mouth Daily. Active ibuprofen (ADVIL,MOTRIN) 600 MG tablet Take 1 tablet by mouth Every 6 (Six) Hours As Needed for Mild Pain . 30 tablet 11/18/2018 1:01 PM EST 11/18/2018 Active Active Problems Problem Noted Date Diagnosed Date Placental abruption, antepartum 11/15/2018 History of section complicating pregnan cy 11/15/2018 Request for sterilization 11/15/2018 Delivery by section using transverse incision of lower segment of uterus 11/15/2018 Fall (on) (from) other stairs and steps, initial encounter 11/08/2018 Traumatic injury during in third trime ster 11/08/2018 08/03/2018 deliv due to previo us difficult deliv, [facility] 08/03/2018 History of delivery 08/03/2018 Resolved Problems Problem Noted Date Diagnosed Date Resolved Date labor 11/19/2016 11/26/2016 Previous delivery, antepartum 10/28/2016 11/26/2016 10/01/2016 11/26/2016 Family History Medical History Relation Name Comments Hypertension Father Hypertension Mother Hypertension Paternal Grandfather Relation Name Status Comments Father Mother Paternal Grandfather Social History Tobacco Use Types Packs/Day Years Used Date Smoking Tobacco: Never Smokeless Tobacco: Never Alcohol Use Standard Drinks/Week Comments No 0 (1 standard drink = 0.6 oz pur e alcohol) [place] Depression Scale Answer Date Recorded Retired [place] Depression Score 0 11/16/2018 Retired EPD Scale: Thought of Harming Self Unrec ognized value 11/16/2018 Abuse Screen Answer Date Recorded Unsafe at Home or Work/School Not on file Feels Threatened by Someone? Not on file 06/2023 Does Anyone Keep You from Co ntacting Others or Doint Things Outside the Home? Not on file 07/04/2023 Physical Sign of Abuse Present Not on file 1 Housing Stability Answer Date Recorded Current Living Arrangements Not on file 06/25 Potentially Unsafe Housing Conditions Not on lynette e 07/04/2023 Family and Community Support Answer Ignacio e Recorded Help with Day-to-Day Activities Not on file 07/04/2023 Lonely or Isolated Not on file 07/04/2023 Employment Answer Date Recorded Do you want help finding or keeping work or a ney b? Not on file 07/04/2023 Disabilities Answer Date Recorded Concentrating, Remembering, or Making Decisions Difficulty Not on file 07/04/2023 Doing Errands Independently Difficulty Not on fi le 07/04/2023 Education Answer Date Recorded Help with school or training? Not on file Preferred Language Not on file 07/04/2023 Comments No Sex and Gender Information Value Date Recorded Sex Assigned at Not on file Legal Sex Female 1:47 PM EDT Gender Identity Not on file Sexual Orientation Not on file Last Filed Vital Signs Vital Sign Reading Time Taken Comments Blood Pressure 104/64 11/18/2018 7:00 AM EST Pulse 90 11/18/2018 7:00 AM EST Temperature 36.3 C (97.4 F) 11/18/2018 7:00 AM EST Respiratory Rate 16 11/18/2018 7:00 AM EST Oxygen Saturation 99% 11/15/2018 10:09 PM EST Inhaled Oxygen Concentration - - Weight 83.5 kg (184 lb) 11/15/2018 1:25 PM EST Height 162.6 cm (5' 4 ) 11/15/2018 1:20 PM EST Body Mass Index 31.58 11/15/2018 1:20 PM EST Plan of Treatment Health Maintenance Due Date Last Done Comments Annual Gynecologic Pelvic an d Breast Exam 1995 TDAP/TD VACCINES (1 - Tdap) 2013 ANNUAL PHYSICAL 03/06/2024 HEPATITIS C SCREENING 03/06/2024 COVID-19 Vaccine ( - 2023-2 5 season) 2024 INFLUENZA VACCINE 06/25/2025 Pneumococcal Vaccine 0-49 Aged Out No longer eligible based on patient's age to complete this topic Insurance [facility] [employer] Advance Directives * CPR (Attempt to Resuscitate) (Latest Code Status on File) Date Activated Date Inactivated Comments 11/15/2018 11:16 PM 11/18/2018 8:21 PM Question Answer Comments Code Status (Patient has no pulse and is not breathing): CPR (Attempt to Resuscitate) Medical Interventions (Patie nt has pulse or is breathing): Full * CPR (Attempt to Resuscitate) Date Activated Date Inactivated Comments 11/15/2018 2:59 PM 11/15/2018 11:16 PM Question Answer Comments Code Status (Patient has no pulse and is not breathing): CPR (Attempt to Resuscitate) Medical Interventions (Patie nt has pulse or is breathing): Full * CPR (Attempt to Resuscitate) Date Activated Date Inactivated Comments 11/08/2018 6:06 PM 11/09/2018 2:55 PM Question Answer Comments Code Status (Patient has no pulse and is not breathing): CPR (Attempt to Resuscitate) Medical Interventions (Patie nt has pulse or is breathing): Full * Full Code Date Activated Date Inactivated Comments 11/22/2016 11:02 PM 11/26/2016 3:38 PM * Full Code Date Activated Date Inactivated Comments 11/19/2016 8:52 PM 11/22/2016 11:02 PM Care Teams Communications Planner Relationship Specialty Start Date End Date Provider, No Known [facility] [place] [address] PCP - General 05/07/15
--- NOTE | 2025-05-12 11:56 | XR_ITS ---
FINAL REPORT CLINICAL HISTORY: dylon, fell off of a stool and tried to catch herself, hurt her left wrist. COMPARISON: None FINDINGS: Two views of the left wrist were obtained. There is no acute fracture or dislocation. The joint spaces are well preserved. There is no acute soft tissue abnormality. IMPRESSION: No acute abnormality identified. Reviewed, Interpreted and Dictated by Raymond Holman MD Transcribed by Christi Galeas Authenticated and [facility]
--- NOTE | 2025-05-12 11:56 | XR_ITS ---
FINAL REPORT CLINICAL HISTORY: foosh at 0900. fell off of a stool and tried to catch herself, hurt her left wrist. COMPARISON: None FINDINGS: LEFT HAND Three views demonstrate no acute fracture or dislocation. The visualized joint spaces are normally aligned. The soft tissues are unremarkable. IMPRESSION: No acute process. Reviewed, Interpreted and Dictated by Raymond Holman MD Transcribed by Christi Galeas Authenticated and [facility]
[2025-05-12] MEDS: ACETAMINOPHEN 500MG TAB 1000 MG PO (12:19)
--- NOTE | 2025-05-12 12:59 | ED_ITS ---
<Statement entered by Andrew Asif DO - 05/13/25 19:30> I was consulted by the JAMILA, and we discussed the complexity of problems being addressed. I approved the treatment and management plan for this patient's care in the emergency department, thus performing a substantive portion of the medical decision making. Andrew Asif DO Discharge Plan Disposition Patient Disposition: Home, Self-Care Prescriptions Prescriptions: No Action Linzess 290 mcg capsule 290 mcg PO DAILY Qty: 90 3RF Zyrtec 10 mg capsule 10 mg PO DAILY 30 Days Qty: 30 5RF famotidine [Pepcid] 20 mg tablet 20 mg PO DAILY 14 Days Qty: 14 0RF Referrals Follow up/Referrals: Long Chavez DO [Staff Physician, Orthopedics] - See instructions Ananda Kaur MD [Primary Care Provider, Medical] - See instructions Activity Restrictions/Add. Instructions Additional Instructions/Restrictions: Today you were evaluated in the emergency department for left hand and left wrist pain. Please wear the splint that you were provided x 1 week. If you are still having pain after 1 week, please call Dr. Chavez's office for a follow-up appointment. You may remove the splint to shower and sleep, otherwise try to wear it. Take acetaminophen and ibuprofen [id number] for symptomatic relief. Ice the area for the next 24 hours, 20 minutes at a time x 4 times a day. If your condition worsens at all, return to the ED immediately. Clinical Impressions Clinical Impression: Sprain of hand, left, Fall Instructions Patient Instructions: DI for Hand Pain Print Language Print Language: Kyrgyz Discharge ED Provider: Andrew Asif General Adult HPI General Chief complaint: Extremity Injury, Upper Stated complaint: AO-left wrist pain Time Seen by Provider: 05/12/25 11:29 Mode of Arrival: Ambulatory Source of Information: Patient Description of Symptoms (Recalled from ER Triage Doc. by RN): Patient complaining of pain in left wrist after fall off step ladder- happened about an hour ago, states she caught herself with left hand and felt a pop in wrist. 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 Patient states she was standing on a small 2 step ladder when she fell, catching herself with her left hand. Patient is reporting lateral left hand pain at the fifth metacarpal. Related Data Previous Rx's ?Medication ?Instructions ?Recorded cetirizine 10 mg capsule (Zyrtec) 10 mg PO DAILY 30 da ys #30 caps 08/25/23 famotidine 20 mg tablet (Pepcid) 20 mg PO DAILY 2 week s #14 tabs 08/25/23 linaclotide 290 mcg capsule 290 mcg PO DAILY #90 caps 02/25/25 (Linzess) Allergies Allergy/AdvReac Type Severity Reaction Status Date / Time rimegepant (From [facility] ODT) Allergy Severe anaphylactic Verified 05/12/25 10:54 shock chlorhexidine (CHLORHEXIDINE) Allergy Unknown I-RASH Verified 05/12/25 10:54 diphenhydramine (From Allergy Unknown Verified 05/12/25 10:54 Benadryl) allergy reaction PFSH PFS Disclaimer: The information contained in this section may have been updated after the patient was seen, as this information can be updated by other users. Medical History Interatrial cardiac shunt Urinary tract infection Migraine Abnormal EKG Surgical History History of tubal ligation History of foot surgery History of breast augmentation History of wisdom tooth extraction History of hernia repair History of Family History Other No significant family history Social History Smoking Status: Never smoker second hand exposure: No alcohol intake: never substance use type: denies use current occupational status: unemployed Travel in the last 8 weeks?: None household members: spouse and children housing: condominium caffeine: Yes Have you lived/traveled outside US in past 30 days?: No Contact w/someone who lives/traveled outside US past 30 days?: No Exposure to someone with infectious disease in past 14 days?: No Do you have a fever (greater than 100.4 F or 38 C)?: No Have you tested positive for COVID-19?: No Exposed to someone with COVID-19 in past 14 days?: No Do you have a sore throat?: No Do you have a cough?: No Do you have any weakness?: No Do you have any diarrhea?: No Are you experiencing any unusual bleeding?: No Do you have any muscle aches/pain?: No Do you have any abdominal pain?: No Are you experiencing loss of taste or smell?: No Other Medical History Have you received the Flu Vaccine for this season: No Have you received the Pneumonia Vaccine: No ROS Obtained: Yes Systems reviewed as appropriate & no additional complaints except as documented Physical Exam General General appearance: alert Head Head exam: atraumatic Eye Eye exam: Present PERRL Neck Neck exam: Present full ROM Respiratory Respiratory exam: Present normal lung sounds bilaterally Cardiovascular Cardiovascular exam: Present regular rate Abdominal Exam Abdominal exam: Present soft Extremities Exam Extremities exam: Present other (Left lateral hand tenderness, left wrist tenderness, full ROM, neurovascular status intact. Sensation intact.) Back Exam Back exam: Present full ROM Neurological Exam Neurological exam: Present alert and oriented X3 Skin Skin exam: Present warm and dry Medical Decision Making Medical Records Screening: Per USPSTF and CDC recommendations, given the prevalence of disease in our region, it is our hospital?s policy to screen for HIV and viral Hepatitis for all patients aged 18 and over and those with ongoing risk factors. Ru Inquiry Pt receiving controlled substance: No Vital Signs: 05/12/25 11:41 05/12/25 13:05 Temperature 98.1 F 98.7 F Temperature Source Oral Oral Pulse Rate 84 Pulse Rate [Right Brachial] 93 H Respiratory Rate 16 18 Blood Pressure 142/74 H Blood Pressure [Right Arm] 151/99 H Blood Pressure Mean [Right Arm] 116 Blood Pressure Source Automatic Cuff Blood Pressure Source [Right Arm] Automatic Cuff Blood Pressure Position Sitting Blood Pressure Position [Right Arm] Sitting 02 Sat by Pulse Oximetry 98 Oxygen Delivery Method Room Air Room Air Orders (Tests/Meds): ED MEDICATIONS Discontinued Medications Generic Name Dose Route Start Last Admin Trade Name Freq PRN Reason Stop Dose Admin Acetaminophen 1,000 mg 05/12/25 11:56 05/12/25 12:19 Acetaminophen 500mg Tab PO 05/12/25 11:57 1,000 mg ONCE ONE Administration ORDERS Category Date Time Status Hand XR left minimum 3 views [XR hand LT min 3V] Stat Exams 05/12/25 11:56 Completed Wrist XR left 2 views [XR wrist LT 2V] Stat Exams 05/12/25 11:56 Completed Medical Decision Narrative: In summary, patient is a 30-year-old female with no significant PMHx who presents to the ED after being 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 Patient states she was standing on a small 2 step ladder when she fell, catching herself with her left hand. Patient is reporting lateral left hand pain at the fifth metacarpal. She states she was at the [facility] when they advised her that it was most likely broken, did not perform an x-ray, sent her to the ED. Denies any additional injury. Did not hit her head, did not lose consciousness. Denies fever, chills, bodyaches, headache, visual disturbances, neck pain, chest pain, shortness of breath. Upon initial evaluation patient is alert, oriented and cooperative. She is hemodynamically stable. Sensation and neurovascular status of left upper extremity intact. Patient has left lateral hand tenderness, left wrist tenderness. Discussed with patient we will proceed with x-ray of the hand and wrist. Patient will be symptomatically managed with acetaminophen for pain. X-ray reads unremarkable for any acute fracture. Patient was given a Velcro wrist splint that is removable. I advised her to wear this for 1 week, taking it off to shower and sleep. Discussed with her that if she is has persistent pain after 1 week she will need to follow-up with orthopedics. Discussed that she may ice the area today and continue to take acetaminophen and ibuprofen [id number]. Patient verbalized understanding. She verbalized understanding of return precautions. She was discharged from the ED hemodynamically stable and ambulatory without difficulty. Critical Care Critical Care Time Critical Care Time: No
[2025-05-12 13:05] VITALS: BP 142/74; PULSE 84; RESP 18; TEMP 37.1; O2SAT 97
== END 2025-05-12 13:08 | disposition home or self-care (01) ==
PROVIDERS: Emergency Provider Student in an Organized Health Care Education/Training Program; PCP Family Medicine
DX: S63.92XA Sprain of unspecified part of left wrist and hand, initial encounter (principal); W08.XXXA Fall from other furniture, initial encounter
CPT/HCPCS: 73100; 73130; 99282; 99283

== ENCOUNTER 2025-09-13 08:23 | Outpatient (CLI) | payer BC, SELFPAY ==
--- OUTSIDE RECORDS SUMMARY | 2024-05-31 10:15 | XMS_ITS ---
[facility] Address [address] [place] [id number] Care Team Providers Care Ceramic Products Sales Engineer Name Role Phone Pato Kaur Primary Care Provider [phone] Lalita Mendez [phone] Allergies Allergen (clinical drug ingredient) Drug/Non Drug [...] Diagnosis 1 Chronic constipation (K59.09) [facility] Referring Provider First Name Lalita Referring Provider Last Name Andrea Referring Provider Speciality Physician Supplier Specialist Referred Provider Gastroenterology, . Referred Provider Specialty [...] day(s) Active Mupirocin 2 % 1 application Parent Trainer ally Twice a day; Duration: 5 day(s) [...] 05/31/2024 Encounters Encounter Location Date Provider Diagnosis [facility] [address] [facility] [address] [place], [place] [id number] 05/31/2024 Lalita Mendez Chronic constipation K59.09 and [...] Notes * Hussein ENGELOB:1995 (30 yo F)Acc No.[id number]:05/31/2024 Progress Notes Patient: Mariaa SORIA Provider: KIMBERLY Diaz :1995 A ge:29 Y S ex:Female Date:05/31/2024 Address:[address] [place] [address] [place] [id number] Pcp:Pato Kaur Subjective: * Chief Complaints: * [...] and was following with Dr. Tyler in [place]. Pt sts she had a colonoscopy in [...] Hernia , LT Heel Cyst Remova , [place] Teeth Extracted , Breast Augmentation 12/01/2020. * Hospitalization/Major Diagno stic Procedure: Delphine tobias- [facility] ER 07/28/2020. * Family History: F [...] * Images: Billing Information: * Visit Code: 19617 Office Visit, Est Pt., Level 3. * Procedure Codes: 46594 PULSE OX. * Electronic signature of KIMBELRY Pleitez on 09/15/2025 at 08:28 AM EST Sign off status: Pending * Provider: KIMBERLY Diaz Date: 0 05/31/2024 Generated for Jessica haider/Cherrie/Loretoitting on: 1 11/16/2024 08:28 AM EST History and Physical Notes * HPI [...] and was following with Dr. Tyler in [place]. Pt sts she had a colonoscopy in [...]
--- OUTSIDE RECORDS SUMMARY | 2024-06-03 03:50 | XMS_ITS ---
Author Organization [facility] Address [address] [place] [id number] Care Team Providers Care Lay Out Maker Name Role Phone Pato Kaur Primary Care Provider [phone] Lalita Mendez [phone] REASON FOR VISIT stool sample Encounters Encounter Location Date Provider Diagnosis [facility] [address] [place] [phone] 06/03/2024 Lalita Mendez Plan Of Treatment No Information Progress Notes * HANNAHussein MENJIVAROB:1995 (30 yo F)Acc No.[id number]:06/03/2024 Patient: Mariaa SORIA Provider: KIMBERLY Diaz :1995 A ge:29 Y S ex:Female Date:06/03/2024 Address:[address] [place] Pcp:Pato Kaur Subjective: * Chief Complaints: * 1 . Stool sample. * Medical History: Objective: * Vitals: Assessment: Plan: * Treatment: * Images: Billing Information: * Visit Code: * Procedure Codes: * Electronic signature of KIMBERLY Pleitez on 09/15/2025 at 08:27 AM EST Sign off status: Pending * Provider: KIMBERLY Diaz Date: 0 06/03/2024 Generated for Printi ng/Faxing/eTransmitting on: 1 11/16/2024 08:27 AM EST
--- OUTSIDE RECORDS SUMMARY | 2024-10-01 09:30 | XMS_ITS ---
Author Organization [facility] Address [address] [place] [phone] Care Team Providers Care Ordnance Equipment Worker Name Role Phone Pato Kaur Primary Care [...] Date Status Mupirocin 2 % 1 application Manager Of Employee Relations ally Twice a day; Duration: 5 day(s) [...] [address] [place] [phone] 10/01/2024 Pato Kaur Chest pain at rest [...] Notes * Hussein ENGELOB:1995 (30 yo F)Acc No.[id number]:10/01/2024 Patient: Mariaa SORIA Provider: Pato Kaur M.D. :1995 A ge:29 Y S ex:Female Date:10/01/2024 Address:[address] [place] [address] [phone] Subjective: * Chief Complaints: * 1 . f/u [facility] ER visit 09/26/24 / chest pain. * HPI: C ardiology: She comes in today for follow-up on ER visit to [facility] on 09/19/2024. She presented there with an [...] Hernia , LT Heel Cyst Remova , [place] Teeth Extracted , Breast Augmentation 12/01/2020. * Hospitalization/Major Diagno stic Procedure: P alpitaions- [facility] ER 07/28/2020, Chest Pain - [place] ER 09/19/2024. * Family History: F ather: [...] * Images: Billing Information: * Visit Code: 91028 Office Visit, Est Pt., Level 3. * Procedure Codes: * Electronic signature of Pato Kaur MD on 09/15/2025 at 08:27 AM EST Sign off status: Pending * Provider: Pato Kaur M.D. Date: 0 10/01/2024 Generated for Jessica haider/Cherrie/Yolanda on: 11/16/2024 08:27 AM EST History and Physical Notes * HPI (History of Present Illness) Category Sub-Category Detail Notes Category Not es Cardiology She comes in today for follow-up on ER visit to [facility] on 09/19/2024. She presented there with an [...]
--- OUTSIDE RECORDS SUMMARY | 2025-05-08 04:45 | XMS_ITS ---
Author Organization [facility] Address [address] [facility] [address] [place] [id number] Care Team Providers Care Occupational Therapy Specialist Name Role Phone Pato Kaur Primary Care Provider [phone] Lalita Mendez [phone] Allergies Allergen (clinical drug ingredient) Drug/Non Drug Allergy documented on EMR Reaction Allergy Type Onset Date Status diphenhydramine Benadryl Allergy cant urinate Drug Allergy Active REASON FOR VISIT med check Encounters Encounter Location Date Provider Diagnosis [facility] [address] [facility] [address] [facility] [address] [place] [id number] 05/08/2025 Lalita Mendez Plan Of Treatment No Information Progress Notes * Hussein ENGELOB:1995 (30 yo F)Acc No.[id number]:05/08/2025 Progress Notes Patient: Mariaa SORIA Provider: KIMBERLY Diaz :1995 A ge:30 Y S ex:Female Date:05/08/2025 Address:[address], [id number] Pcp:Pato Kaur Subjective: * Chief Complaints: * [...] Hernia , LT Heel Cyst Remova , [place] Teeth Extracted , Breast Augmentation 12/01/2020. * Hospitalization/Major Diagno stic Procedure: P alpitaions- [facility] 07/28/2020, Chest Pain - [facility] 09/19/2024. * Family History: F ather: [...] signature of KIMBERLY Pleitez on 09/15/2025 at 08:28 AM EST Sign off status: Pending * Provider: KIMBERLY Diaz Date: 0 05/08/2025 Generated for Jessica haider/Cherrie/Loretoitting on: 1 11/16/2024 08:28 AM EST History and Physical Notes * HPI (History of Present Illness) Category Sub-Category Detail Notes Category Not es HPI Patient is here today for med check. Pt clemente cuba
--- OUTSIDE RECORDS SUMMARY | 2025-06-12 05:15 | XMS_ITS ---
Author Organization [facility] Address [address] [place] [id number] Care Team Providers Care Jig And Fixture Builder Apprentice Name Role Phone Pato Kaur Primary Care Provider Jordandong Lalita Aquino [phone] Allergies Allergen (clinical drug ingredient) Drug/Non Drug Allergy documented on EMR Reaction Allergy Type Onset Date Status diphenhydramine Benadryl Allergy cant urinate Drug Allergy Active Results Component Value Reference Range Notes CBC Venipuncture (in house) Reviewed date:06/12/2025 04:54:55 PM Interpretation: Performing Lab: Notes/Report: wbc 5.6 3.5 - 10 lymph 31.5% 15 - 50 mid 6.4% 2 - 15 gran 62.1% 35 - 80 rbc 4.61 3.5 - 5.5 hgb 14.1 11.5 - 16.5 hct 42.3 35 - 55 mcv 91.8 75 - 100 mch 30.6 25 - 35 mchc 33.3 31 - 38 platlet 302 100 - 400 P-Vitamin B12 Reviewed date:06/17/2025 03:25:19 PM Interpretation:Normal Performing Lab: Notes/Report: Test performed by [facility] [address] [place] [address] , [address], [place] [address] Morro Guerra MD, Folder Machine Operator CLIA: [id number] Vitamin B12 906 470-8985 pg/mL P-Comprehensive Metabolic Pa osmar (CMP) Reviewed date:06/17/2025 03:25:19 PM Interpretation:Normal Performing Lab: Notes/Report: Test performed by [facility] [address] [place] [address] , [address], [place] [address] Morro Guerra MD, Folder Machine Operator CLIA: [id number] Sodium 144 135-145 mmol/L Potassium 4.3 3.5-5.3 mmol/L Chloride 108 97-108 mmol/L CO2 22 20-32 mmol/L Glucose 80 65-99 mg/dL BUN 8 6-20 mg/dL Creatinine 0.70 0.50-1.00 mg/dL Calcium 9.5 8.6-10.4 mg/dL eGFR by Creatinine 118 >59 mL/min/1.73m2 Protein 6.9 6.0-8.3 g/dL Albumin 4.7 3.5-5.3 g/dL Alkaline Phosphatase 77 35-121 IU/L ALT (SGPT) 13 <5-47 IU/L AST (SGOT) 14 <5-40 IU/L Bilirubin, Total 0.4 <0.2-1.2 mg/dL A/G Ratio 2.1 1.1-2.5 P-Magnesium Reviewed date:06/17/2025 03:25:19 PM Interpretation:Normal Performing Lab: Notes/Report: Test performed by [facility] [address] [place] [address] , [address], [place] [address] Morro Guerra MD, Folder Machine Operator CLIA: [id number] Magnesium 2.2 1.6-2.4 mg/dL P-TSH reflex to FT4 Reviewed date:06/17/2025 03:25:19 PM Interpretation:Normal Performing Lab: Notes/Report: Test performed by [facility] [address] [place] [address] , [address], [place] [id number] Morro Guerra MD, Folder Machine Operator CLIA: [id number] TSH reflex to FT4 2.25 0.43-5.25 mU/L P-Vitamin D 25-Hydroxy Reviewed date:06/17/2025 03:25:19 PM Interpretation:17.8 Performing Lab: Notes/Report: Test performed by [facility] [address] [place] [address] , [address], [place] [address] Morro Guerra MD, Folder Machine Operator CLIA: [id number] Vitamin D 25-Hydroxy 17.8 30.0-100.0 ng/mL Interpretation of Vitamin D 25 OH: < 20 ng/mL - Deficiency 20 - 29 ng/mL - Insufficiency 30 - 100 ng/mL - Sufficiency > 100 ng/mL - Super-therapeutic- toxicity may occur above this level. Clinical correlation required. REASON FOR VISIT dizzy spells Medications Medication SIG (Take, Route, Frequency, Duration) Notes Start Date End Date Status ZyrTEC Allergy 10 MG 1 tablet Orally Once a day Active Famotidine 20 MG 1 tablet at bedtime as needed Orally Once a day Active Meclizine HCl 25 MG 1 tab Orally 3 times a day Active EpiPen 2-Reinaldo Active EpiPen 2-Reinaldo 0.3 MG/0.3ML as directed Injection Active Problems Problem Type SNOMED Code ICD Code Onset Dates Problem Status W/U Status Risk Notes Problem Vitamin D deficiency (64930771) Vitamin D deficiency (E55.9) Active confirmed Vital Signs Weight 162.6 lbs 06/12/2025 Blood pressure systolic 112 mm Hg 06/12/20 25 Blood pressure diastolic 80 mm Hg 025 Heart Rate 83 /min 06/12/2025 Height 64 in 06/12/2025 BMI 27.91 kg/m2 06/12/2025 Encounters Encounter Location Date Provider Diagnosis [facility] [address] [phone] 06/12/2025 Lalita Mendez Dizziness R42 ; Non-recurrent acute serous otitis media of left ear H65.02 ; Vitamin D deficiency E55.9 and BMI 27.0-27.9,adult Z68.27 Assessments Encounter Date Diagnosis (ICD Code) Assessment Notes Treatment Notes Treatment Clinical Notes Section Notes 06/12/2025 Dizziness (ICD-10 - R42) 06/12/2025 Non-recurrent acute serous otitis media of left ear (ICD-10 - H65.02) 06/12/2025 Vitamin D deficiency (ICD-10 - E55.9) 06/12/2025 BMI 27.0-27.9,adult (ICD-10 - Z68.27) Plan Of Treatment Medication Medication Name Sig Start Date Stop Date Notes Meclizine HCl 25 MG 1 tab Orally 3 times a day 06/12/2025 Next Appt Details Follow Up: via phone to repo rt test results, Reason: Progress Notes * Hussein ENGELOB:1995 (30 yo F)Acc No.[id number]:06/12/2025 Progress Notes Patient: Mariaa SORIA Provider: KIMBERLY Diaz :1995 A ge:30 Y S ex:Female Date:06/12/2025 Address:[address] [place] [address] Peewee Huang [id number] Pcp:Ptao Kaur Subjective: * Chief Complaints: * 1 . Dizzy spells. * HPI: C ardiology: 30 year old female presents with c/o Dizziness P t states she has been having dizzy spells for 3 weeks off and on. It is mainly when she is walking and she feels like she drifts to the side. It is worse when turning her head to the right. She has not been driving. No hearing loss or ringing in the ears.. * ROS: D ERMATOLOGY: no R nisha. n o H raven. G ASTROENTEROLOGY: no N ausea. n o V omiting. n o D iarrhea.? U ROLOGY: no D ifficulty urinating. n o B lood in urine. * Medical History: M igraines. * Surgical History: C -section X 4 , Umbilical Hernia , LT Heel Cyst Remova , Clive Teeth Extracted , Breast Augmentation 12/01/2020. * Hospitalization/Major Diagno stic Procedure: P alpitaions- [facility] ER 07/28/2020, Chest Pain - [facility] 09/19/2024. * Family History: F ather: [...] needed Orally Once a day , Taking ZyrTEC Allergy 10 MG Tablet 1 tablet Orally Once a day , Taking EpiPen 2- Reinaldo , Taking EpiPen 2-Reinaldo 0.3 MG/0.3ML Solution Auto-injector as directed Injection , Discontinued Potassium Chloride ER 20 MEQ Tablet Extended Release 1 tablet with food Orally Once a day , Discontinued Lasix 40 MG Tablet 1 tablet Orally qod , Discontinued Hyoscyamine Sulfate 0.125 MG Tablet 1 tablet as needed Orally every 4 hrs , Discontinued Cetirizine HCl 10 MG Tablet 1 tablet Orally , Discontinued Sulfamethoxazole-Trimethoprim 800-160 MG Tablet 1 tablet Orally Three times a Week , Discontinued Mupirocin 2 % Ointment 1 application Externally Twice a day , Discontinued Cephalexin 500 MG Capsule 1 capsule Orally every 6 hrs , Discontinued Scopolamine 1 MG/3DAYS Patch 72 Hour 1 patch to skin behind the ear as needed Transdermal every 72 hours , Medication List reviewed and reconciled with the patient * Allergies: B enadryl Allergy: cant urinate. Objective: * Vitals: W t: 162.6, Temp: 99.5, BP: 112/80, HR: 83, Nurse: pe, Ht: 64, BMI:27.91. * Examination: G eneral Examination: General Appearance: N AD. H EENT: s clera and conjunctiva clear, PERRLA, left TM with effusion, no erythema, right TM normal, mild horizontal nystagmus to the right. O ral cavity: n o lesions, mucosa moist and WNL, no erythema. N rory: supple, no lymphadenopathy, no carotid bruits. C hest: n ormal shape and expansion. H eart: R SR. L ungs: c lear to auscultation. A bdomen: b owel sounds present, soft and nontender. N eurologic Exam: a lert and oriented, normal cranial nerves II-XII sensory & motor WNL, unsteady on Rhomberg, negative [place] Hallpike.. S kin: n ormal, no rash.?Peripheral pulses: n ormal (2+) bilaterally. E xtremities: n o leg edema. ? Assessment: * Assessment: 1. D izziness - R42 (Primary) 2 . N on-recurrent acute serous otitis media of left ear - H65.02 3 . V itamin D deficiency - E55.9 4 . B MA 27.0-27.9,adult - Z68.27 Plan: * Treatment: Value Reference Range V itamin B12 250 743-9749 - pg/mL * Lalita Mendez 06/12/2025 1 1:08:20 AM EDT >room 10, Leticia Dale 06/13/2025 09:46:21 AM EDT > See phone encounter Leticia Bruner 06/17/2025 03:25:09 PM EDT > See phone encounter ?LAB: P-Comprehensive Metabolic Panel (CMP) (Collection Date & Time - 06/12/2025 11:54 AM)?Normal* Value Reference Range A /G Ratio 2.1 1.1-2.5 - * A lbumin 4.7 3.5-5.3 - g/dL * A lkaline Phosphatase 77 35-121 - IU/L * A LT (SGPT) 13 <5-47 - IU/L * A ST (SGOT) 14 <5-40 - IU/L * B ilirubin, Total 0.4 <0.2-1.2 - mg/dL * B UN 8 6-20 - mg/dL * C alcium 9.5 8.6-10.4 - mg/dL * C hloride 108 97-108 - mmol/L * C O2 22 20-32 - mmol/L * C reatinine 0.70 0.50-1.00 - mg/dL * G lucose 80 65-99 - mg/dL * P otassium 4.3 3.5-5.3 - mmol/L * S odium 144 135-145 - mmol/L * P rotein 6.9 6.0-8.3 - g/dL * e GFR by Creatinine 118 >59 - mL/min/1.73m2 * Lalita Mendez Charo 06/12/2025 1 1:08:20 AM EDT >room 10, Leticia Dale 06/13/2025 09:46:21 AM EDT > See phone encounter ZohrehLeticia dixon 06/17/2025 03:25:09 PM EDT > See phone encounter ?LAB: P-TSH reflex to FT4 (Collection Date & Time - 06/12/2025 11:54 AM)? Normal* Value Reference Range T SH reflex to FT4 2.25 0.43-5.25 - mU/L * Lalita Mendez Charo 06/12/2025 1 1:08:20 AM EDT >room 10, Leticia Dale 06/13/2025 09:46:21 AM EDT > See phone encounter Leticia Bruner 06/17/2025 03:25:09 PM EDT > See phone encounter ?LAB: CBC Venipuncture (in house) (Collection Date & Time - 06/12/2025)* Value Reference Range w bc 5.6 3.5 - 10 * l ymph 31.5% 15 - 50 * m id 6.4% 2 - 15 * g ran 62.1% 35 - 80 * r bc 4.61 3.5 - 5.5 * h gb 14.1 11.5 - 16.5 * h ct 42.3 35 - 55 * m cv 91.8 75 - 100 * m ch 30.6 25 - 35 * m chc 33.3 31 - 38 * p latlet 302 100 - 400 * Krupa Ventura 06/12/2025 1 1:56:50 AM EDT > 2.?Vitamin D deficiency?LAB: P-Vitamin D 25-Hydroxy (Collection Date & Time - 06/12/2025 11:54 AM)? 17.8* Value Reference Range V itamin D 25-Hydroxy 17.8 L 30.0-100.0 - ng/mL * Lalita Mendez 06/12/2025 1 1:08:20 AM EDT >room 10, Leticia Dale 06/13/2025 09:46:21 AM EDT > See phone encounter Leticia Bruner 06/17/2025 03:25:09 PM EDT > See phone encounter * Labs: * L ab: P-Magnesium (Collection Date & Time - 06/12/2025 11:54 AM) N ormal Value Reference Range M agnesium 2.2 1.6-2.4 - mg/dL * [facility], IT support 06/13/2025 06:05:06 : This order was created by the Interface. Zohreh Leticia 06/17/2025 03:25:09 PM EDT > See phone encounter * Procedure Codes: 8 5025 CBC WITH AUTO DIFF, 27498 VENIPUNCT, ROUTINE*, 1036F TOBACCO NON-USER, 3074F SYST BP LT 130 MM HG, 3079F DIAST BP 80-89 MM HG * Follow Up: v ia phone to report test results * Images: Billing Information: * Visit Code: 01326 Office Visit, Est Pt., Level 4. * Procedure Codes: 21648 CBC WITH AUTO DIFF. 62450 VENIPUNCT, ROUTINE*. 1036F TOBACCO NON-USER. 3074F SYST BP LT 130 MM HG. 3079F DIAST BP 80-89 MM HG. * Electronic signature of KIMBERLY Pleitez on 09/15/2025 at 08:27 AM EST Sign off status: Pending * Provider: KIMBERLY Diaz Date: 0 06/12/2025 Generated for Jessica haider/Cherrie/eTransmitting on: 1 11/16/2024 08:27 AM EST History and Physical Notes * HPI (History of Present Illness) Category Sub-Category Detail Notes Category Not es Cardiology Dizziness Pt states she biggs s been having dizzy spells for 3 weeks off and on. It is mainly when she is walking and she feels like she drifts to the side. It is worse when turning her head to the right. She has not been driving. No hearing loss or ringing in the ears. Examination Category Sub-Category Detail Notes Category Not es General Examination HEENT: sclera and c onjunctiva clear, PERRLA, left TM with effusion, no erythema, right TM normal, mild horizontal nystagmus to the right Heart: RSR Lungs: clear to auscultatio n Abdomen: bowel sounds present , soft and nontender Extremities: no leg edema General Appearance: NAD Skin: normal, no rash Neurologic Exam: alert and oriented, normal cranial nerves II-XII sensory & motor WNL, unsteady on Rhomberg, negative [place] Hallpike. Neck: supple, no lymphaden opathy, no carotid bruits Oral cavity: no lesions, mucosa m oist and WNL, no erythema Peripheral pulses: normal (2+) bilatera lly Chest: normal shape and exp ansion
--- OUTSIDE RECORDS SUMMARY | 2025-07-07 08:45 | XMS_ITS ---
Author [facility] Address [address] [place] [phone] Care Team Providers Care Stopping Builder Name Role Phone Pato Kaur Primary Care Provider Cee Salas Unavailable [phone] Allergies Allergen (clinical drug ingredient) Drug/Non Drug [...] W/U Status Risk Notes Problem Acute migraine (3335604133714 08) Acute migraine (G43.909) Active confirmed Vital Signs Weight 164.4 lbs 07/07/2025 Blood pressure systolic 122 mm Hg 07/07/20 25 Blood pressure diastolic 70 mm Hg 025 Heart Rate 88 /min 07/07/2025 Height 64 in 07/07/2025 BMI 28.22 kg/m2 07/07/2025 Encounters Encounter Location Date Provider Diagnosis [facility] [address] [place] [phone] 07/07/2025 [place] Acute migraine G43.909 Assessments [...] Notes * Hussein ENGELOB:1995 (30 yo F)Acc No.[id number]:07/07/2025 Progress Notes Patient: Mariaa SORIA Provider: RIKA Arthur :1995 A ge:30 Y S ex:Female Date:07/07/2025 Address:[address] [place] [address] [id number] Pcp:Pato Kaur Subjective: * Chief Complaints: * [...] Hernia , LT Heel Cyst Remova , [place] Teeth Extracted , Breast Augmentation 12/01/2020. * Hospitalization/Major Diagno stic Procedure: P alpitaions- [facility] ER 07/28/2020, Chest Pain - [place] ER 09/19/2024. * Family History: F ather: [...] Result: Normal Value Reference Range Vitamin B12 479 183-2780 - pg/mL L ab:P-Magnesium (Order Date - [...] * Images: Billing Information: * Visit Code: 58982 Office Visit, Est Pt., Level 3. * Procedure Codes: 1036F TOBACCO NON-USER. 3074F SYST BP LT 130 MM HG. 3078F DIAST BP < 80 MM HG. * Electronic signature of Elsa Salas APRN on 09/15/2025 at 08:26 AM EST Sign off status: Pending * Provider: RIKA Arthur Date: 1 Generated for Jessica haider/Cherrie/Yolanda on: 11/16/2024 08:26 AM EST History and Physical Notes * [...]
--- OUTSIDE RECORDS SUMMARY | 2025-09-11 08:15 | XMS_ITS ---
Author Organization [facility] Address [address] [place] [phone] Care Team Providers Care Estimator Name Role Phone Pato Kaur Primary Care Provider Lalita Mendez [phone] Allergies Allergen (clinical drug ingredient) Drug/Non Drug Allergy documented on EMR Reaction Allergy Type Onset Date Status diphenhydramine Benadryl Allergy cant urinate Drug Allergy Active rimegepant Nurtec Unknown Drug Allergy Active Results Component Value Reference Range Notes P-Vitamin B12 Reviewed date:09/12/2025 12:20:53 PM Interpretation: Performing Lab: Notes/Report: Test performed by [facility] [address] [place], [place] [address] [place] , [address], [place] [address] Jeevan Merchant MD, PhD, [facility], Manager English CLIA: [id number] Vitamin B12 883 204-6874 pg/mL P-T4 Free (thyroxine) Reviewed date:09/12/2025 12:20:53 PM Interpretation: Performing Lab: Notes/Report: Test performed by [facility] [address] [place] [address] , [address], [place] [address] Jeevan Merchant MD, PhD, [facility], Manager English CLIA: [id number] Thyroxine Free (free T4) 1.05 0.86-1.76 ng/dL P-Thyroid Antibody Panel (TA BS) Reviewed date:09/12/2025 12:20:53 PM Interpretation: Performing Lab: Notes/Report: Test performed by [facility], [address] [place] [address] Jeevan Merchant MD, PhD, [facility], Manager English CLIA: [id number] Thyroid Peroxidase Antibody <9 <9-34 IU/mL An elevated Thyroid Peroxidase Antibody should not be used alone to make the diagnosis of autoimmune thyroid disease. A result of <34 IU/mL does not definitively rule out the possibility of autoimmune thyroid disease. Thyroglobulin Antibody 19.2 <10-115.0 IU/mL The test is performed by the Mickie ECLIA methodology. Values obtained with different assay methods or kits cannot be directly compared. P-TSH Reviewed date:09/12/2025 12:20:53 PM Interpretation: Performing Lab: Notes/Report: Test performed by [email or web address] [address] [place] [address] [place] [address] Jeevan Merchant MD, PhD, [facility], Manager English CLIA: [id number] TSH 1.47 0.43-5.25 mU/L P-Vitamin D 25-Hydroxy Reviewed date:09/12/2025 12:20:53 PM Interpretation: Performing Lab: Notes/Report: Test performed by [facility] [address] [place] [address] [place] [address] Jeevan Merchant MD, PhD, [facility], Manager English CLIA: [id number] Vitamin D 25-Hydroxy 19.5 30.0-100.0 ng/mL Interpretation of Vitamin D 25 OH: < 20 ng/mL - Deficiency 20 - 29 ng/mL - Insufficiency 30 - 100 ng/mL - Sufficiency > 100 ng/mL - Super-therapeutic- toxicity may occur above this level. Clinical correlation required. REASON FOR VISIT poss thyroid and labs Medications Medication SIG (Take, Route, Frequency, Duration) Notes Start Date End Date Status Vitamin B 12 500 MCG 1 tablet Orally Onc e a day Active Vitamin D 50 MCG (2000 UT) 1 tablet Orally Once a day Active Rizatriptan Benzoate 10 MG 1 tablet Orally Once a day and may repeat in 2 hours; Duration: 30 days As needed 07/07/2025 Not-Taking Ondansetron 4 MG 1 tablet on the tongue and allow to dissolve Orally every 6 hours As needed 07/07/2025 Not-Taking Medrol 4 MG as directed orally daily; Duration: 6 days 07/07/2025 Not-Taki ng ZyrTEC Allergy 10 MG 1 tablet Orally Onc e a day 08/28/2023 Active Famotidine 20 MG 1 tablet at bedtime as needed Orally Once a day Active EpiPen 2-Reinaldo 0.3 MG/0.3ML as directed Injection Active Problems Problem Type SNOMED Code ICD Code Onset Dates Problem Status W/U Status Risk Notes Problem Thyroid enlargement (5430661) Thyroid enlargement (E04.9) Active confirmed Vital Signs Weight 162.4 lbs 09/11/2025 Blood pressure systolic 112 mm Hg 09/11/20 25 Blood pressure diastolic 70 mm Hg 025 Heart Rate 91 /min 09/11/2025 Height 64 in 09/11/2025 BMI 27.87 kg/m2 09/11/2025 Encounters Encounter Location Date Provider Diagnosis [facility] [address] [facility] [address] [place] [phone] 09/11/2025 Lalita Mendez Thyroid enlargement E04.9 ; Vitamin D deficiency E55.9 and Vitamin B12 deficiency E53.8 Assessments Encounter Date Diagnosis (ICD Code) Assessment Notes Treatment Notes Treatment Clinical Notes Section Notes 09/11/2025 Thyroid enlargement (ICD-10 - E04.9) 09/11/2025 Vitamin D deficiency (ICD-10 - E55.9) 09/11/2025 Vitamin B12 deficiency (ICD-10 - E53.8) Plan Of Treatment Pending Test Test Name Order Date Ultrasound : Thyroid 09/11/2025 Next Appt Details Follow Up: via phone to repo rt test results, Reason: Progress Notes * Hussein ENGELOB:1995 (30 yo F)Acc No.[id number]:09/11/2025 Progress Notes Patient: Mariaa SORIA Provider: KIMBERLY Diaz :1995 A ge:30 Y S ex:Female Date:09/11/2025 Address:[address] [place] [address] [id number] Pcp:Pato Kaur Subjective: * Chief Complaints: * 1 . Poss thyroid and labs. * HPI: H PI: Patient is here today for l ab work to check thyroid. Pt states it feels like she is constantly wearing a turtle neck and pulling at her throat . * ROS: D ERMATOLOGY: no R nisha. n o H raven. G ASTROENTEROLOGY: no N ausea. n o V omiting. n o D iarrhea.? U ROLOGY: no D ifficulty urinating. n o B lood in urine. * Medical History: M gloria. * Surgical History: C -section X 4 , Umbilical Hernia , LT Heel Cyst Remova , [place] Teeth Extracted , Breast Augmentation 12/01/2020. * Hospitalization/Major Diagno stic Procedure: P alpitaions- [facility] ER 07/28/2020, Chest Pain - [facility] 09/19/2024. * Family History: F ather: [...] Solution Auto- injector as directed Injection , Not-Taking Medrol 4 MG Tablet Therapy Pack as directed orally daily , Not-Taking Ondansetron 4 MG Tablet Disintegrating 1 tablet on the tongue and allow to dissolve Orally every 6 hours As needed, Not-Taking Rizatriptan Benzoate 10 MG Tablet 1 tablet Orally Once a day and may repeat in 2 hours As needed, Medication List reviewed and reconciled with the patient * Allergies: B enadryl Allergy: cant urinate, Nurtec. Objective: * Vitals: W t: 162.4, Temp: 98.1, BP: 112/70, HR: 91, Nurse: GHASSAN, Ht: 64, BMI:27.87. * Examination: G eneral Examination: General Appearance: N AD. H EENT: u nremarkable.?Oral cavity: n o lesions, mucosa moist and WNL, no erythema. N rory: s upple, no lymphadenopathy, thyroid enlarged. C hest: n ormal shape and expansion. H eart: R SR. Lungs: c lear to auscultation. N eurologic Exam: I ntact, gait normal. S kin:?normal, no rash. P eripheral pulses: n ormal (2+) bilaterally. E xtremities: n o leg edema. Assessment: * Assessment: 1. T hyroid enlargement - E04.9 (Primary) 2 . V itamin D deficiency - E55.9? 3. V itamin B12 deficiency - E53.8 Plan: * Treatment: Value Reference Range T hyroxine Free (free T4) 1.05 0.86-1.76 - ng/d L * Lalita Mendez 09/11/2025 01:31:57 PM EST >room 6 Lalita Mendez 09/12/2025 12:20:45 PM EST >see TE ?LAB: P-Thyroid Antibody Panel (TABS) (Collection Date & Time - 09/11/2025 12:35 PM)* Value Reference Range T hyroid Peroxidase Antibody <9 <9-34 - IU/mL * T hyroglobulin Antibody 19.2 <10-115.0 - IU/mL * Lalita Mendez 09/11/2025 01:31:57 PM EST >room 6 Lalita Mendez 09/12/2025 12:20:45 PM EST >see TE ?LAB: P-TSH (Collection Date & Time - 09/11/2025 12:35 PM)* Value Reference Range T SH 1.47 0.43-5.25 - mU/L * Lalita Mendez 09/11/2025 01:31:57 PM EST >room 6 Lalita Mendez 09/12/2025 12:20:45 PM EST >see TE ?Imaging: Ultrasound : Thyroid* Camille Bateman 09/11/2025 01: 55:29 PM EST > faxed to [facility] Scheduling 2.?Vitamin D deficiency?LAB: P-Vitamin D 25-Hydroxy (Collection Date & Time - 09/11/2025 12:35 PM) * Value Reference Range V itamin D 25-Hydroxy 19.5 L 30.0-100.0 - ng/mL * Lalita Mendez 09/11/2025 01:31:57 PM EST >room 6 Lalita Mendez 09/12/2025 12:20:45 PM EST >see TE 3.?Vitamin B12 deficiency?LAB: P-Vitamin B12 (Collection Date & Time - 09/11/2025 12:35 PM)* Value Reference Range V itamin B12 680 216-0558 - pg/mL * Lalita Mendez 09/11/2025 01:31:57 PM EST >room 6 Lalita Mendez 09/12/2025 12:20:45 PM EST >see TE * Procedure Codes: 3 074F SYST BP LT 130 MM HG, 3078F DIAST BP < 80 MM HG * Follow Up: v ia phone to report test results * Images: Billing Information: * Visit Code: 05910 Office Visit, Est Pt., Level 3. * Procedure Codes: 3074F SYST BP LT 130 MM HG. 3078F DIAST BP < 80 MM HG. * Electronic signature of KIMBERLY Pleitez on 09/15/2025 at 08:27 AM EST Sign off status: Pending * Provider: KIMBERLY Diaz Date: 11/12/2024 Generated for Jessica ng/Cherrie/eTransmitting on: 11/16/2024 08:27 AM EST History and Physical Notes * HPI (History of Present Illness) Category Sub-Category Detail Notes Category Not es HPI Patient is here today for lab wo rk to check thyroid. Pt states it feels like she is constantly wearing a turtle neck and pulling at her throat Examination Category Sub-Category Detail Notes Category Not es General Examination HEENT: unremarkable Heart: RSR Lungs: clear to auscultatio n Extremities: no leg edema General Appearance: NAD Skin: normal, no rash Neurologic Exam: Intact, gait normal Neck: supple, no lymphaden opathy, thyroid enlarged Oral cavity: no lesions, mucosa m oist and WNL, no erythema Peripheral pulses: normal (2+) bilatera lly Chest: normal shape and exp ansion
[2025-09-13 21:25] LABS: Coronavirus 19, PCR Not Detected (NotDetected); Influenza A, PCR Not Detected (NotDetected); Influenza B, PCR Not Detected (NotDetected)
--- OUTSIDE RECORDS SUMMARY | 2025-09-15 08:27 | XMS_ITS | Clinical Summary ---
[facility] Address [address] [place] [address] Care Team Providers Care Club Manager Name Role Phone Provider, No Known Primary [...] drink = 0.6 oz pur e alcohol) [place] Depression Scale Answer Date Recorded [place] Depression Scale Total 0 11/16/2018 The thought of harming myself has occurred to me . Unrecognized value 11/16/2018 Abuse Screen Answer Date Recorded [...] ANNUAL PHYSICAL 03/06/2024 HEPATITIS C SCREENING 03/06/2024 INFLUENZA VACCINE 04/25/2025 Pneumococcal Vaccine 0-49 Aged Out No longer eligible based on patient's age to complete this topic Insurance [facility] [employer] CROSS Member Subscriber Plan / Payer (Ef fective 2013-Present) Name:Mariaa Engel Relation to Subscriber:Child Name:SUSAN YBARRA Date of :1965 Address: [address] [facility] [address] [place] [address] Payer ID:[id number] (NAIC) Group ID:[id number] Type:Not on file Address: [facility] [id number] [id number] Advance Directives * CPR (Attempt to Resuscitate) [...] 8:52 PM 11/22/2016 11:02 PM Care Teams Club Manager Relationship Specialty Start Date End Date Provider, [place] [address] PCP - General 05/07/15
--- OUTSIDE RECORDS SUMMARY | 2025-09-15 08:27 | XMS_ITS | Patient Health Record ---
Author Organization [facility] Address [address] [place] [id number] Care Team Providers Care Inside Sales Engineer Name Role Phone Pato Kaur Primary Care Provider Cee Salas Unavailable [phone] Lalita Mendez Unavailable [phone] Allergies Allergen (clinical drug ingredient) Drug/Non Drug [...] Interpretation:Normal Performing Lab: Notes/Report: Test performed by [facility] [address] [place] [address] , [address], [place] [address] Morro Guerra MD, Full Time CLIA: [id number] Vitamin B12 002 366-3351 pg/mL P-Comprehensive Metabolic Pa osmar (CMP) Reviewed date:06/17/2025 03:25:19 PM Interpretation:Normal Performing Lab: Notes/Report: Test performed by [facility] [address] [place] [address] , [address], [place] [address] Morro Guerra MD, Full Time CLIA: [id number] Sodium 144 135-145 mmol/L Potassium 4.3 3.5-5.3 [...] Interpretation:Normal Performing Lab: Notes/Report: Test performed by [facility] [address] [place] [address] , [place] [address] Morro Guerra MD, Full Time CLIA: [id number] Magnesium 2.2 1.6-2.4 mg/dL P-TSH reflex to FT4 Reviewed date:06/17/2025 03:25:19 PM Interpretation:Normal Performing Lab: Notes/Report: Test performed by [facility] [address] [place] [address] , [place] [address] Morro Guerra MD, Full Time CLIA: [id number] TSH reflex to FT4 2.25 0.43-5.25 mU/L P-Vitamin D 25-Hydroxy Reviewed date:06/17/2025 03:25:19 PM Interpretation:17.8 Performing Lab: Notes/Report: Test performed by [facility] [address] [place] [address] , [address], [place] [address] Morro Guerra MD, Full Time CLIA: [id number] Vitamin D 25-Hydroxy 17.8 30.0-100.0 ng/mL Interpretation of Vitamin D 25 OH: < 20 ng/mL - Deficiency 20 - 29 ng/mL - Insufficiency 30 - 100 ng/mL - Sufficiency > 100 ng/mL - Super-therapeutic- toxicity may occur above this level. Clinical correlation required. P-Vitamin B12 Reviewed date:09/12/2025 12:20:53 PM Interpretation: Performing Lab: Notes/Report: Test performed by [facility] [address] [place] [address] , [address], [place] [address] Jeevan Merchant MD, PhD, [facility], Full Time CLIA: [id number] Vitamin B12 549 930-7264 pg/mL P-T4 Free (thyroxine) Reviewed date:09/12/2025 12:20:53 PM Interpretation: Performing Lab: Notes/Report: Test performed by [employer] [address] , [place] [address] Jeevan Merchant MD, PhD, [facility], Full Time CLIA: [id number] Thyroxine Free (free T4) 1.05 0.86-1.76 ng/dL P-Thyroid Antibody Panel (TA BS) Reviewed date:09/12/2025 12:20:53 PM Interpretation: Performing Lab: Notes/Report: Test performed by [facility] [address] [place] [address] , [place] [address] Jeevan Merchant MD, PhD, [facility], Full Time CLIA: [id number] Thyroid Peroxidase Antibody <9 <9-34 IU/mL An [...] Interpretation: Performing Lab: Notes/Report: Test performed by [facility] [address] [place] [address] , [place] [address] Jeevan Merchant MD, PhD, FCAP, Full Time CLIA: [id number] TSH 1.47 0.43-5.25 mU/L P-Vitamin D 25-Hydroxy Reviewed date:09/12/2025 12:20:53 PM Interpretation: Performing Lab: Notes/Report: Test performed by [facility] [employer] [facility] , [address], [place] [address] Jeevan Merchant MD, PhD, [facility], Full Time CLIA: [id number] Vitamin D 25-Hydroxy 19.5 30.0-100.0 ng/mL Interpretation of Vitamin D 25 OH: < 20 ng/mL - Deficiency 20 - 29 ng/mL - Insufficiency 30 - 100 ng/mL - Sufficiency > 100 ng/mL - Super-therapeutic- toxicity may occur above this level. Clinical correlation required. Echocardiogram Reviewed date:10/24/2024 08:37:04 AM Interpretation:mild abnormal Performing Lab: Notes/Report: mild abnormal Holter Monitor- 48 hour Reviewed date:10/24/2024 02:33:58 PM Interpretation: Performing Lab: Notes/Report: Ultrasound : Abdomen, Right Upper Quadrant Reviewed date:01/17/2025 04:36:08 PM Interpretation:tiny GB polyp Performing Lab: Notes/Report: tiny GB polyp Reason For Referral Reason abnormal echo and sy ncope Diagnosis 1 Abnormal echocardiog hope (R93.1) Referral Organization [facility] Referring Provider First Name Pato Ramirez Referring Provider Last Name Vincent Referring Provider [facility] ctice Referred Provider Vashti Copeland Referred Provider Specialty Cardiovascul ar Disease General Notes Camille Bateman 10/22/19 25 1:16:33 PM > faxed to [facility] CardiologyBhavana Brynn 10/28/2024 11:09:07 AM > 11/05/2024 at 09:00am Referral Priority Routine Diagnosis 1 Right upper quadrant abdominal pain (R10.11) Referral Organization [facility] Referring Provider First Name Cee Referring Provider Last Name Josue Referring Provider [facility] ctice Referred Organization [facility] OP Referred Provider CHIQUI TORRES Referred Address [address] [address] [address] [place] [place],[id number], Referred Provider Specialty Gastroentero logy General Notes Cee Salas 12/24/2024 11:54:21 AM > seen in ER for severe abd pain; had CT-see results; still with nausea/vomiting with GB signs; doing official RUQ US; on going gI issues as well, Camille Bateman 12/25/2024 01:30:17 PM > faxed to [facility] GI Referral Priority Routine Medications Medication SIG (Take, Route, Frequency, Duration) Notes Start Date End Date Status Vitamin D 50 MCG (1999 UT) 1 tablet Orally twice a day Active Vitamin B 12 500 MCG 1 tablet Orally Onc e a day Active Rizatriptan Benzoate 10 MG 1 tablet Orally Once a day and may repeat in 2 hours; Duration: 30 days As needed 07/07/2025 Not-Taking Ondansetron 4 MG 1 tablet on the tongue and allow to dissolve Orally every 6 hours As needed 07/07/2025 Not-Taking ZyrTEC Allergy 10 MG 1 tablet Orally Onc e a day 08/28/2023 Active Famotidine 20 MG 1 tablet at bedtime as needed Orally Once a day Active Medrol 4 MG as directed orally daily; Duration: 6 days 07/07/2025 Not-Taki ng EpiPen 2-Reinaldo 0.3 MG/0.3ML as directed Injection Active Problems Problem Type SNOMED Code ICD Code Onset Dates Problem Status W/U Status Risk Notes Problem Vitamin D deficiency (09716827) Vitamin D deficiency (E55.9) Active confirmed Problem Constipation (36727554) Constipation (K59.00) Active confirmed Problem Memory loss (73113003) Memory loss (R41.3) Active confirmed Problem Generalized anxiety disorder (20778431) Generalized anxiety disorder (F41.1) Active confirmed Problem Thyroid enlargement (5735215) Thyroid enlargement (E04.9) Active confirmed Problem Refractory migraine (693480213) Intractable migraine without status migrainosus, unspecified migraine type (G43.919) Active confirmed Problem Disorder of kidney and/or ureter (318242490) Caliectasis determined by ultrasound of kidney (N28.89) Active confirmed Problem Acute migraine (878460408838542 ) Acute migraine (G43.909) Active confirmed Vital Signs Heart Rate 91 /min 09/11/2025 Blood pressure diastolic 70 mm Hg 09/11/2025 Height 64 in 09/11/2025 Blood pressure systolic 112 mm Hg 09/11/2025 Weight 162.4 lbs 09/11/2025 BMI 27.87 kg/m2 09/11/2025 Encounters Encounter Location Date Provider Diagnosis [facility] [address] [place] [id number] 10/01/2024 R James Vincent Chest pain at rest R07.9 and Palpitations R00.[address] [facility] [address] [place] [id number] 12/24/2024 Cee Salas Right upper quadrant abdominal pain R10.11 and Constipation K59.00 [facility] [address] [place] [id number] 06/12/2025 Lalita Crowdy Dizziness R42 ; Non-recurrent acute serous otitis media of left ear H65.02 ; Vitamin D deficiency E55.9 and BMI 27.0-27.9,adult Z68.27 [facility] [address] [place] [id number] 07/07/2025 Cee Salas Acute migraine G43.9 09 [facility] [address] [place] [id number] 09/11/2025 Lalita Jordandy Thyroid enlargement E04.9 ; Vitamin D deficiency E55.9 and Vitamin B12 deficiency E53.8 [facility] [address] [place] [id number] 10/22/2024 R James Vincent Abnormal echocardiog hope R93.1 and Syncope R55 [facility] [address] [place] [id number] 12/25/2024 Cee Salas Right upper quadrant abdominal pain R10.11 [facility] [address] [place] [id number] 01/02/2025 R James Vincent [facility] [address] [place] [id number] 06/13/2025 Lalita Crowdy [facility] [address] [place] [id number] 09/12/2025 Lalita Mendez [facility] [address] [place] [id number] 05/15/2025 R James Kaur Allergic reaction T78.40XA Assessments Encounter Date Diagnosis (ICD Code) Assessment Notes Treatment Notes Treatment Clinical Notes Section Notes 06/12/2025 Non-recurrent acute serous otitis media of left ear (ICD-10 - H65.02) 07/07/2025 Acute migraine (ICD-10 - G43.909) MDP with food; maintain hydration 09/11/2025 Vitamin D deficiency (ICD-10 - E55.9) 10/01/2024 Palpitations (ICD-10 - R00.2) 10/01/2024 Chest pain at rest (ICD-10 - R07.9) 10/22/2024 Syncope (ICD-10 - R55) 10/22/2024 Abnormal echocardiogram (ICD-10 - R93.1) 12/24/2024 Right upper quadrant abdominal pain (ICD-10 - R10.11) ER labs and CT scan results reviewed; limited US done in ER by ER MD; needs Regular US ; discussed bland diet ; no caffeine or pop; maintain hydration; GI consult as well 12/24/2024 Constipation (ICD-10 - K59.00) 12/25/2024 Right upper quadrant abdominal pain (ICD-10 - R10.11) 05/15/2025 Allergic reaction (ICD-10 - T78.40XA) 06/12/2025 Dizziness (ICD-10 - R42) 09/11/2025 Thyroid enlargement (ICD-10 - E04.9) 06/12/2025 Vitamin D deficiency (ICD-10 - E55.9) 09/11/2025 Vitamin B12 deficiency (ICD-10 - E53.8) 06/12/2025 BMI 27.0-27.9,adult (ICD-10 - Z68.27) 10/01/2024 Other Check echocardiogram and Holter monitor and make referral if indicated. She is to let me know if she has further episodes of chest pain. Plan Of Treatment Pending Test Test Name Order Date Ultrasound : Thyroid 09/11/2025 Insurance Providers Payer Name Payer Address Payer Phone Subscriber Number Group Number Insured Name Patient Relationship to Insured Coverage Start Date Coverage End Date [employer] [address] [place] [address] [id number] Mariaa Engel Self - patient is the insured Medical (General) History Medical History History ICD Code Migraines Surgical History Surgery Date(Month/Year) X 4 Umbilical Hernia LT Heel Cyst Remova [place] Teeth Extracted Breast Augmentation 12/01/2020 Hospitalization History Reason Date(Month/Year) Chest Pain - [place] ER 09/19/2024 Palpitaions- [facility] ER 07/28/2020
== END 2025-09-13 23:59 | disposition home or self-care (01) ==
LOC: LAB.DROPOF 09-15 08:24
PROVIDERS: PCP Family Medicine; Visit Provider Nurse Practitioner
DX: J06.9 Acute upper respiratory infection, unspecified (principal)
CPT/HCPCS: 87631

== ENCOUNTER 2025-09-22 14:13 | Outpatient (CLI) | payer BC, SELFPAY ==
--- OUTSIDE RECORDS SUMMARY | 2024-05-31 10:15 | XMS_ITS ---
[facility] Address [address] [place] [id number] Care Team Providers Care Kaiako Kura [place] Maori Name Role Phone Pato Kaur Primary Care Provider Lalita Mendez [phone] Allergies Allergen (clinical drug ingredient) Drug/Non Drug Allergy documented on EMR Reaction Allergy Type Onset Date Status diphenhydramine Benadryl Allergy cant urinate Drug Allergy Active Results Component Value Reference Range Notes X ray : Abdomen-KUB with upr ight films Reviewed date:06/02/2024 10:22:04 PM Interpretation: Performing Lab: Notes/Report: X ray : Abdomen-KUB with upr ight films Reviewed date:06/02/2024 10:22:04 PM Interpretation: Performing Lab: Notes/Report: Reason For Referral Diagnosis 1 Chronic constipation (K59.09) [facility] Referring Provider First Name Lalita Referring Provider Last Name Andrea Referring Provider Speciality Physician Booster Pump Oiler Referred Provider Gastroenterology, . Referred Provider Specialty Gastroentero logy General Notes Lalita Mendez 2023 10:14:12 PM > Pt needs an appt with Bhavana Cm Brynn 06/03/2024 8:51:34 AM > spoke with Dr. Law office; they will call patient with appointment date/time Referral Priority Routine REASON FOR VISIT abdominal pressure, mucus or blood with bowel movement Medications Medication SIG (Take, Route, Frequency, Duration) Notes Start Date End Date Status Cephalexin 500 MG 1 capsule Orally blanca ry 6 hrs; Duration: 4 day(s) Active Mupirocin 2 % 1 application Communications Director ally Twice a day; Duration: 5 day(s) Active Sulfamethoxazole-Trimeth oprim 800-160 MG 1 tablet Orally Three times a Week; Duration: 10 day(s) Active Scopolamine 1 MG/3DAYS 1 patch to skin b ehind the ear as needed Transdermal every 72 hours 05/17/2024 Not-Taking Cetirizine HCl 10 MG 1 tablet Orally Active Famotidine 20 MG 1 tablet at bedtime as needed Orally Once a day Active ZyrTEC Allergy 10 MG 1 tablet Orally Onc e a day 08/28/2023 Active EpiPen 2-Reinaldo Active Vital Signs Weight 159.6 lbs 05/31/2024 Blood pressure systolic 110 mm Hg 05/31/20 24 Blood pressure diastolic 70 mm Hg 024 Heart Rate 106 /min 05/31/2024 Height 64 in 05/31/2024 BMI 27.39 kg/m2 05/31/2024 Encounters Encounter Location Date Provider Diagnosis [facility] [address] [facility] [address] [place], [place] [id number] 05/31/2024 Lalita Mendez Chronic constipation K59.09 and Mucus in stool R19.5 Assessments Encounter Date Diagnosis (ICD Code) Assessment Notes Treatment Notes Treatment Clinical Notes Section Notes 05/31/2024 Chronic constipation (ICD-10 - K59.09) Will start taking a few caps of miralax daily for the next few days. If no BM, will do an enema. 05/31/2024 Mucus in stool (ICD-10 - R19.5) Gave a stool kit to get a stool sample so we can check a diarrhea panel. Plan Of Treatment Treatment Notes Assessment Notes Chronic constipation Will start taking a few caps of miralax daily for the next few days. If no BM, will do an enema. Mucus in stool Gave a stool kit to get a stool sample so we can check a diarrhea panel. Referrals Referral Date Details 06/02/2024 06/02/2024, . Gastro enterology Next Appt Details Follow Up: via phone to repo rt test results, Reason: Progress Notes * Hussein ENGELOB:1995 (30 yo F)Acc No.[id number]:05/31/2024 Progress Notes Patient: Mariaa SORIA Provider: KIMBERLY Diaz :1995 A ge:29 Y S ex:Female Date:05/31/2024 Address:[address] [place] [address] [place] [id number] Pcp:Pato Kaur Subjective: * Chief Complaints: * 1 . Abdominal pressure, mucus or blood with bowel movement. * HPI: G astroenterology: 29 year old female presents with c/o Abdominal Pain P t presents today with abdominal pain and c/o mucus or blood with bowel movement. Pt sts the bleeding started today and that there is a grayish white mucus in it as well. Pt sts she has upper abdominal pain and when eating or drinking she feels like she is going to v omit. She s ts when she lays down it ocampo like acid reflux. Pt sts she has not had a bowel movement in 3 weeks. Pt sts she has always had stomach problems and was following with Dr. Tyler in [place]. Pt sts she had a colonoscopy in 2012, but nothing was found. Pt sts she usually will go a few weeks without having a BM unless she eats something that does not agree with her stomach and then she has numerous episodes of diarrhea. She had to strain this am to try to have a BM and that was when she passed the blood, mucous, and loose stool. . * ROS: A LLERGY: no C ough. n o R unny nose. G ASTROENTEROLOGY: no N ausea. n o V omiting. U ROLOGY: no D ifficulty urinating. n o B lood in urine. * Medical History: M igraines. * Surgical History: X 4 , Umbilical Hernia , LT Heel Cyst Remova , [place] Teeth Extracted , Breast Augmentation 12/01/2020. * Hospitalization/Major Diagno stic Procedure: Delphine tobias- [facility] ER 07/28/2020. * Family History: F ather: alive 60 yrs, diagnosed with Hypertension. M other: alive 56 yrs. 1 brother(s) , 1 sister(s) . 1 son(s) , 3 daughter(s) . . * Social History: C URRENT TOBACCO USE: No . C affeine: yes, frequency: daily. Home smoke detector use: yes. Alcohol: no. * Medications: T aking Sulfamethoxazole-Trimethoprim 800-160 MG Tablet 1 tablet Orally Three times a Week , Taking Mupirocin 2 % Ointment 1 application Externally Twice a day , Taking Cephalexin 500 MG Capsule 1 capsule Orally every 6 hrs , Taking Famotidine 20 MG Tablet 1 tablet at bedtime as needed Orally Once a day , Taking EpiPen 2-Reinaldo , Taking ZyrTEC Allergy 10 MG Tablet 1 tablet Orally Once a day , Taking Cetirizine HCl 10 MG Tablet 1 tablet Orally , Not-Taking Scopolamine 1 MG/3DAYS Patch 72 Hour 1 patch to skin behind the ear as needed Transdermal every 72 hours , Medication List reviewed and reconciled with the patient * Allergies: B enadryl Allergy: cant urinate. Objective: * Vitals: W t:159.6, Temp:98.9, BP:110/70, HR:106, O2 Sat:100% on RA, Nurse:ROSI, Ht: 64, BMI:27.39. * Examination: G astroenterology: General Appearance: p leasant, NAD. O ral cavity: n ormal. S clera: a nicteric. H eart sounds: r egular, normal S1 S2, no murmurs. L ungs: c lear, no rales or wheezes. A bdomen: BS present, soft, diffusely tender and distended. Assessment: * Assessment: 1. C hronic constipation - K59.09 (Primary) 2 . M ucus in stool - R19.5? Plan: * Treatment: Notes: Will start taking a few caps of miralax daily for the next few days. If no BM, will do an enema.? Referral To:. Gastroenterology??Gastroenterology ?Reason: 2.?Mucus in stool? Notes: Gave a stool kit to get a stool sample so we can check a diarrhea panel.?? * Procedure Codes: 9 4760 PULSE OX * Follow Up: v ia phone to report test results * Images: Billing Information: * Visit Code: 90037 Office Visit, Est Pt., Level 3. * Procedure Codes: 23167 PULSE OX. * Electronic signature of KIMBERLY Pleitez on 09/22/2025 at 02:27 PM EST Sign off status: Pending * Provider: KIMBERLY Diaz Date: 0 05/31/2024 Generated for Jessica haider/Cherrie/Loretoitting on: 1 02:27 PM EST History and Physical Notes * HPI (History of Present Illness) Category Sub-Category Detail Notes Category Not es Gastroenterology Abdominal Pain Pt presents tod ay with abdominal pain and c/o mucus or blood with bowel movement. Pt sts the bleeding started today and that there is a grayish white mucus in it as well. Pt sts she has upper abdominal pain and when eating or drinking she feels like she is going to vomit. She sts when she lays down it ocampo like acid reflux. Pt sts she has not had a bowel movement in 3 weeks. Pt sts she has always had stomach problems and was following with Dr. Tyler in [place]. Pt sts she had a colonoscopy in 2012, but nothing was found. Pt sts she usually will go a few weeks without having a BM unless she eats something that does not agree with her stomach and then she has numerous episodes of diarrhea. She had to strain this am to try to have a BM and that was when she passed the blood, mucous, and loose stool. Examination Category Sub-Category Detail Notes Category Not es Gastroenterology Oral cavity: normal Sclera: anicteric Heart sounds: regular, normal S1 S 2, no murmurs Lungs: clear, no rales or w heezes Abdomen: BS present, soft, di ffusely tender and distended General Appearance: pleasant, NAD Consultation Request Notes Referral Date Referring Provider Referred Provider Not es 06/02/2024 Lalita Mendez Gastroenterology, .
--- OUTSIDE RECORDS SUMMARY | 2024-06-03 03:50 | XMS_ITS ---
Author Organization [facility] Address [address] [place] [id number] Care Team Providers Care Processing Technologist Name Role Phone Pato Kaur Primary Care Provider Lalita Mendez [phone] REASON FOR VISIT stool sample Encounters Encounter Location Date Provider Diagnosis [facility] [address] [place] [phone] 06/03/2024 Lalita Mendez Plan Of Treatment No Information Progress Notes * HANNAHussein MENJIVAROB:1995 (30 yo F)Acc No.[id number]:06/03/2024 Patient: Mariaa SORIA Provider: KIMBERLY Diaz :1995 A ge:29 Y S ex:Female Date:06/03/2024 Address:[address] [place], [place] Pcp:Pato Kaur Subjective: * Chief Complaints: * 1 . Stool sample. * Medical History: Objective: * Vitals: Assessment: Plan: * Treatment: * Images: Billing Information: * Visit Code: * Procedure Codes: * Electronic signature of KIMBERLY Pleitez on 09/22/2025 at 02:26 PM EST Sign off status: Pending * Provider: KIMBERLY Diaz Date: 0 06/03/2024 Generated for Printi ng/Faxing/eTransmitting on: 1 02:26 PM EST
--- OUTSIDE RECORDS SUMMARY | 2024-10-01 09:30 | XMS_ITS ---
Author Organization [facility] Address [address] [place] [id number] Care Team Providers Care Elastic Yarn Twister Name Role Phone Pato Kaur Primary Care Provider Allergies Allergen (clinical drug ingredient) Drug/Non Drug Allergy documented on EMR Reaction Allergy Type Onset Date Status diphenhydramine Benadryl Allergy cant urinate Drug Allergy Active Results Component Value Reference Range Notes Echocardiogram Reviewed date:10/24/2024 08:37:04 AM Interpretation:mild abnormal Performing Lab: Notes/Report: mild abnormal Holter Monitor- 48 hour Reviewed date:10/24/2024 02:33:58 PM Interpretation: Performing Lab: Notes/Report: REASON FOR VISIT f/u [facility] ER visit 09/26/24 / chest pain Medications Medication SIG (Take, Route, Frequency, Duration) Notes Start Date End Date Status Mupirocin 2 % 1 application R And D Lab Technician ally Twice a day; Duration: 5 day(s) Not-Taking Sulfamethoxazole-Trimeth oprim 800-160 MG 1 tablet Orally Three times a Week; Duration: 10 day(s) Not-Taking ZyrTEC Allergy 10 MG 1 tablet Orally Onc e a day 08/28/2023 Active Cetirizine HCl 10 MG 1 tablet Orally Active Scopolamine 1 MG/3DAYS 1 patch to skin b ehind the ear as needed Transdermal every 72 hours 05/17/2024 Not-Taking Cephalexin 500 MG 1 capsule Orally blanca ry 6 hrs; Duration: 4 day(s) Not-Taki ng Famotidine 20 MG 1 tablet at bedtime as needed Orally Once a day Active EpiPen 2-Reinaldo Active Vital Signs Weight 165.8 lbs 10/01/2024 Blood pressure systolic 118 mm Hg 10/01/19 25 Blood pressure diastolic 76 mm Hg 025 Heart Rate 76 /min 10/01/2024 Height 64 in 10/01/2024 BMI 28.46 kg/m2 10/01/2024 Encounters Encounter Location Date Provider Diagnosis [facility] [address] [place] [phone] 10/01/2024 Pato Kaur Chest pain at rest R07.9 and Palpitations R00.2 Assessments Encounter Date Diagnosis (ICD Code) Assessment Notes Treatment Notes Treatment Clinical Notes Section Notes 10/01/2024 Chest pain at rest (ICD-10 - R07.9) 10/01/2024 Palpitations (ICD-10 - R00.2) 10/01/2024 Other Check echocardiogram and Holter monitor and make referral if indicated. She is to let me know if she has further episodes of chest pain. Plan Of Treatment Treatment Notes Assessment Notes Other Check echocardiogram and Holter monitor and make referral if indicated. She is to let me know if she has further episodes of chest pain. Next Appt Details Follow Up: via phone to repo rt test results, Reason: Progress Notes * Hussein ENGELOB:1995 (30 yo F)Acc No.[id number]:10/01/2024 Patient: Mariaa SORIA Provider: Pato Kaur M.D. :1995 A ge:29 Y S ex:Female Date:10/01/2024 Address:[address] [place] [address] [id number] Subjective: * Chief Complaints: * 1 . f/u [facility] ER visit 09/26/24 / chest pain. * HPI: C ardiology: She comes in today for follow-up on ER visit to [facility] on 09/19/2024. She presented there with an episode of chest pain that radiated to her left neck and shoulder and associated with diaphoresis. It started while she was riding in the car. Other than being tachycardic on admission, her workup including EKG, chest x-ray, troponin, electrolytes, thyroid functions were normal. She was advised to follow-up with cardiology as an outpatient but felt her symptoms were likely related to anxiety. She has been treated for anxiety in the past but has been off citalopram for about a year. She had 3 more episodes of chest pain 2 nights ago while watching TV. She describes the pain as sharp and stabbing but there was no radiation this time. She did have some diaphoresis. There is a family history of hypertension hyperlipidemia but no heart disease. * ROS: A LLERGY: no C ough. n o R unny nose. G ASTROENTEROLOGY: no N ausea. n o V omiting. U ROLOGY: no D ifficulty urinating. n o B lood in urine. * Medical History: Lola castro. * Surgical History: X 4 , Umbilical Hernia , LT Heel Cyst Remova , [place] Teeth Extracted , Breast Augmentation 12/01/2020. * Hospitalization/Major Diagno stic Procedure: P alpitaions- [facility] ER 07/28/2020, Chest Pain - [place] ER 09/19/2024. * Family History: F ather: alive 61 yrs, diagnosed with Hypertension. M other: alive 57 yrs. 1 brother(s) , 1 sister(s) . 1 son(s) , 3 daughter(s) . . * Social History: C URRENT TOBACCO USE: No . C affeine: yes, frequency: daily. Home smoke detector use: yes. Alcohol: no. * Medications: T aking Famotidine 20 MG Tablet 1 tablet at bedtime as needed Orally Once a day , Taking EpiPen 2-Reinaldo , Taking ZyrTEC Allergy 10 MG Tablet 1 tablet Orally Once a day , Taking Cetirizine HCl 10 MG Tablet 1 tablet Orally , Not-Taking Sulfamethoxazole-Trimethoprim 800-160 MG Tablet 1 tablet Orally Three times a Week , Not-Taking Mupirocin 2 % Ointment 1 application Externally Twice a day , Not- Taking Cephalexin 500 MG Capsule 1 capsule Orally every 6 hrs , Not-Taking Scopolamine 1 MG/3DAYS Patch 72 Hour 1 patch to skin behind the ear as needed Transdermal every 72 hours , Medication List reviewed and reconciled with the patient * Allergies: B enadryl Allergy: cant urinate. Objective: * Vitals: W t:165.8, Temp:97.8, BP:118/76, HR:76, Nurse:G, Ht: 64, BMI:28.46. * Examination: C ardiology: General Appearance: p leasant, NAD. H EENT: u nremarkable. C arotid upstroke: n ormal, no bruits. H eart sounds: R RR, normal S1, S2.?Murmur, click , gallop: n one. L ungs: c lear, no rales or wheezes. A bdomen: positive BS, soft, nontender. E xtremities: n o leg edema. Assessment: * Assessment: 1. C hest pain at rest - R07.9 (Primary) 2 . P alpitations - R00.2 ? Plan: * Treatment: 2.?Palpitations?Imaging: Holter Monitor- 48 hour (Performed Date - 10/03/2024)* Conchita Aiken 10/02/2024 1:36:5 6 PM > order faxed to Outpt registration, patient informed.Pato Kaur 10/24/2024 2:33:40 PM > See phone encounter 3.?Others? Notes: Check echocardiogram and Holter monitor and make referral if indicated. She is to let me know if she has further episodes of chest pain.?? * Follow Up: v ia phone to report test results * Images: Billing Information: * Visit Code: 64033 Office Visit, Est Pt., Level 3. * Procedure Codes: * Electronic signature of Ptao Kaur MD on 09/22/2025 at 02:26 PM EST Sign off status: Pending * Provider: Pato Kaur M.D. Date: 0 10/01/2024 Generated for Jessica haider/Cherrie/Yolanda on: 02:26 PM EST History and Physical Notes * HPI (History of Present Illness) Category Sub-Category Detail Notes Category Not es Cardiology She comes in today for follow-up on ER visit to [facility] on 09/19/2024. She presented there with an episode of chest pain that radiated to her left neck and shoulder and associated with diaphoresis. It started while she was riding in the car. Other than being tachycardic on admission, her workup including EKG, chest x-ray, troponin, electrolytes, thyroid functions were normal. She was advised to follow-up with cardiology as an outpatient but felt her symptoms were likely related to anxiety. She has been treated for anxiety in the past but has been off citalopram for about a year. She had 3 more episodes of chest pain 2 nights ago while watching TV. She describes the pain as sharp and stabbing but there was no radiation this time. She did have some diaphoresis. There is a family history of hypertension hyperlipidemia but no heart disease. Examination Category Sub-Category Detail Notes Category Not es Cardiology Lungs: clear, no rales or wheezes HEENT: unremarkable Heart sounds: RRR, normal S1, S2 Abdomen: positive BS, soft, n ontender Carotid upstroke: normal, no bruits Extremities: no leg edema Murmur, click , gallop: none General Appearance: pleasant, NAD
--- OUTSIDE RECORDS SUMMARY | 2025-05-08 04:45 | XMS_ITS ---
Author Organization [facility] Address [address] [facility] [address] [place] [id number] Care Team Providers Care Bog Cutter Name Role Phone Pato Kaur Primary Care Provider Lalita Mendez [phone] Allergies Allergen (clinical drug ingredient) Drug/Non Drug Allergy documented on EMR Reaction Allergy Type Onset Date Status diphenhydramine Benadryl Allergy cant urinate Drug Allergy Active REASON FOR VISIT med check Encounters Encounter Location Date Provider Diagnosis [facility] [address] [facility] [facility] [address] [facility] [address] [place] [phone] 05/08/2025 Lalita Mendez Plan Of Treatment No Information Progress Notes * Hussein ENGELOB:1995 (30 yo F)Acc No.[id number]:05/08/2025 Progress Notes Patient: Mariaa SORIA Provider: KIMBERLY Diaz :1995 A ge:30 Y S ex:Female Date:05/08/2025 Address:[address] [facility] [facility] [address], [id number] Pcp:Pato Kaur Subjective: * Chief Complaints: * 1 . Med check. * HPI: H PI: Patient is here today for m ed check. Pt states . * ROS: D ERMATOLOGY: no R nisha. n o H raven. G ASTROENTEROLOGY: no N ausea. n o V omiting. n o D iarrhea.? U ROLOGY: no D ifficulty urinating. n o B lood in urine. * Medical History: M igraines. * Surgical History: C -section X 4 , Umbilical Hernia , LT Heel Cyst Remova , [place] Teeth Extracted , Breast Augmentation 12/01/2020. * Hospitalization/Major Diagno stic Procedure: P alpitaions- [facility] ER 07/28/2020, Chest Pain - [place] ER 09/19/2024. * Family History: F ather: alive 61 yrs, diagnosed with Hypertension. M other: alive 57 yrs. 1 brother(s) , 1 sister(s) . 1 son(s) , 3 daughter(s) . . * Social History: C URRENT TOBACCO USE: No . C affeine: yes, frequency: daily. Home smoke detector use: yes. Alcohol: no. * Allergies: B enadryl Allergy: cant urinate. Objective: * Vitals: Assessment: Plan: * Treatment: * Images: Billing Information: * Visit Code: * Procedure Codes: * Electronic signature of KIMBERLY Pleitez on 09/22/2025 at 02:27 PM EST Sign off status: Pending * Provider: KIMBERLY Diaz Date: 0 05/08/2025 Generated for Jessica haider/Cherrie/Coltonsmitting on: 1 02:27 PM EST History and Physical Notes * HPI (History of Present Illness) Category Sub-Category Detail Notes Category Not es HPI Patient is here today for med check. Pt clemente cuba
--- OUTSIDE RECORDS SUMMARY | 2025-06-12 05:15 | XMS_ITS ---
Author Organization [facility] Address [address] [place] [phone] Care Team Providers Care Energy Analyst Name Role Phone Pato Kaur Primary Care Provider Jordandong Lalita Aquino [phone] Allergies Allergen (clinical drug ingredient) Drug/Non Drug [...] Interpretation:Normal Performing Lab: Notes/Report: Test performed by [facility] [address] [place] [address] , [address], [place] [address] Morro Guerra MD, Global Program Director CLIA: [id number] Vitamin B12 319 882-5715 pg/mL P-Comprehensive Metabolic Pa osmar (CMP) Reviewed date:06/17/2025 03:25:19 PM Interpretation:Normal Performing Lab: Notes/Report: Test performed by [facility] [address] [place] [address] , [address], [place] [address] Morro Guerra MD, Global Program Director CLIA: [id number] Sodium 144 135-145 mmol/L Potassium 4.3 3.5-5.3 [...] Interpretation:Normal Performing Lab: Notes/Report: Test performed by [facility] [address] [place] [address] , [address], [place] [address] Morro Guerra MD, Global Program Director CLIA: [id number] Magnesium 2.2 1.6-2.4 mg/dL P-TSH reflex to FT4 Reviewed date:06/17/2025 03:25:19 PM Interpretation:Normal Performing Lab: Notes/Report: Test performed by [facility] [address] [place] [address] , [address], [place] [id number] Morro Guerra MD, Global Program Director CLIA: [id number] TSH reflex to FT4 2.25 0.43-5.25 mU/L P-Vitamin D 25-Hydroxy Reviewed date:06/17/2025 03:25:19 PM Interpretation:17.8 Performing Lab: Notes/Report: Test performed by [facility] [address] [place] [address] , [address], [place] [address] Morro Guerra MD, Global Program Director CLIA: [id number] Vitamin D 25-Hydroxy 17.8 30.0-100.0 ng/mL Interpretation [...] Status Risk Notes Problem Vitamin D deficiency (27136851) Vitamin D deficiency (E55.9) Active confirmed Vital Signs Weight 162.6 lbs 06/12/2025 Blood pressure systolic 112 mm Hg 06/12/20 25 Blood pressure diastolic 80 mm Hg 025 Heart Rate 83 /min 06/12/2025 Height 64 in 06/12/2025 BMI 27.91 kg/m2 06/12/2025 Encounters Encounter Location Date Provider Diagnosis [facility]10 [facility] [address] [phone] 06/12/2025 Lalita Mendez Dizziness R42 ; Non-recurrent [...] Notes * Hussein ENGELOB:1995 (30 yo F)Acc No.[id number]:06/12/2025 Progress Notes Patient: Mariaa SORIA Provider: KIMBERLY Diaz :1995 A ge:30 Y S ex:Female Date:06/12/2025 Address:[address] [place] [address] Peewee Huang [id number] Pcp:Pato Kaur Subjective: * Chief Complaints: * [...] Hernia , LT Heel Cyst Remova , [place] Teeth Extracted , Breast Augmentation 12/01/2020. * Hospitalization/Major Diagno stic Procedure: P alpitaions- [facility] 07/28/2020, Chest Pain - [facility] 09/19/2024. * Family History: F ather: [...] & motor WNL, unsteady on Rhomberg, negative [place] Hallpike.. S kin: n ormal, no rash.?Peripheral pulses: n ormal (2+) bilaterally. E xtremities: n o leg edema. ? Assessment: * Assessment: 1. D izziness - R42 (Primary) 2 . N on-recurrent acute serous otitis media of left ear - H65.02 3 . V itamin D deficiency - E55.9 4 . B PA 27.0-27.9,adult - Z68.27 Plan: * Treatment: Value Reference Range V itamin B12 795 217-4371 - pg/mL * Lalita Mendez 06/12/2025 1 [...] M agnesium 2.2 1.6-2.4 - mg/dL * [facility], IT support 06/13/2025 06:05:06 : This order was created by the Interface. Zohreh Elticia 06/17/2025 03:25:09 PM EDT > See phone encounter * Procedure Codes: 8 5025 CBC WITH AUTO DIFF, 91089 VENIPUNCT, ROUTINE*, 1036F TOBACCO NON-USER, 3074F SYST BP LT 130 MM HG, 3079F DIAST BP 80-89 MM HG * Follow Up: v ia phone to report test results * Images: Billing Information: * Visit Code: 41146 Office Visit, Est Pt., Level 4. * Procedure Codes: 52717 CBC WITH AUTO DIFF. 21487 VENIPUNCT, ROUTINE*. 1036F TOBACCO NON-USER. 3074F SYST BP LT 130 MM HG. 3079F DIAST BP 80-89 MM HG. * Electronic signature of KIMBERLY Pleitez on 09/22/2025 at 02:26 PM EST Sign off status: Pending * Provider: KIMBERLY Diaz Date: 0 06/12/2025 Generated for Jessica haider/Cherrie/eTransmitting on: 1 02:26 PM EST History and Physical Notes [...]
--- OUTSIDE RECORDS SUMMARY | 2025-07-07 08:45 | XMS_ITS ---
Author Organization [facility] Address [address] [place] [id number] Care Team Providers Care Manager Of Exhibitions And Collections Name Role Phone Pato Kaur Primary Care Provider Cee Salas Unavailable [phone] Allergies Allergen (clinical drug ingredient) Drug/Non Drug Allergy documented on EMR Reaction Allergy Type Onset Date Status diphenhydramine Benadryl Allergy cant urinate Drug Allergy Active rimegepant Nurtec Unknown Drug Allergy Active REASON FOR VISIT migraine Medications Medication SIG (Take, Route, Frequency, Duration) Notes Start Date End Date Status Rizatriptan Benzoate 10 MG 1 tablet Orally Once a day and may repeat in 2 hours; Duration: 30 days As needed 07/07/2025 Active Medrol 4 MG as directed orally d aily; Duration: 6 days 07/07/2025 Active Ondansetron 4 MG 1 tablet on the tongue and allow to dissolve Orally every 6 hours As needed 07/07/2025 Active Vitamin D 50 MCG (1999 UT) 1 tablet Oral ly Once a day Active Vitamin B 12 500 MCG 1 tablet Orally Onc e a day Active EpiPen 2-Reinaldo 0.3 MG/0.3ML as directed Injection Active Famotidine 20 MG 1 tablet at bedtime as needed Orally Once a day Active ZyrTEC Allergy 10 MG 1 tablet Orally Onc e a day 08/28/2023 Active Problems Problem Type SNOMED Code ICD Code Onset Dates Problem Status W/U Status Risk Notes Problem Acute migraine (8618113427313 08) Acute migraine (G43.909) Active confirmed Vital Signs Weight 164.4 lbs 07/07/2025 Blood pressure systolic 122 mm Hg 07/07/20 25 Blood pressure diastolic 70 mm Hg 025 Heart Rate 88 /min 07/07/2025 Height 64 in 07/07/2025 BMI 28.22 kg/m2 07/07/2025 Encounters Encounter Location Date Provider Diagnosis [facility] [address] [place] [phone] 07/07/2025 [place] Acute migraine G43.909 Assessments Encounter Date Diagnosis (ICD Code) Assessment Notes Treatment Notes Treatment Clinical Notes Section Notes 07/07/2025 Acute migraine (ICD-10 - G43.909) MDP with food; maintain hydration Plan Of Treatment Medication Medication Name Sig Start Date Stop Date Notes Rizatriptan Benzoate 10 MG 1 tablet Oral ly Once a day and may repeat in 2 hours; Duration: 30 days 07/07/2025 Medrol 4 MG as directed orally d aily; Duration: 6 days 07/07/2025 Ondansetron 4 MG 1 tablet on the tong ue and allow to dissolve Orally every 6 hours 07/07/2025 Treatment Notes Assessment Notes Acute migraine MDP with food; maint ain hydration Next Appt Details Follow Up: prn, Reason: Progress Notes * Hussein ENGELOB:1995 (30 yo F)Acc No.[id number]:07/07/2025 Progress Notes Patient: Mariaa SORIA Provider: RIKA Arthur :1995 A ge:30 Y S ex:Female Date:07/07/2025 Address:[address] [place] [address] [id number] Pcp:Pato Kaur Subjective: * Chief Complaints: * 1 . Migraine. * HPI: C ardiology: 30 year old female presents with c/o Headaches P t states she is having headaches on right side of face and behind her right eye. Pt states she has tried taking meds and nothing is helping it and it has been going on since Monday. N eurology: + nausea and vomiting; has treied multipl OTC meds with out relief; hads Headache of this cliber about once q 3 years; reviewed labs of 06/12/2025. c/o headache f rontal on the right and around the right eye. Denies : head injury. D enies : Dizziness. D enies : insomnia. * ROS: D ERMATOLOGY: no R nisha. n o H raven. G ASTROENTEROLOGY: Nausea y es. V omiting y es. n o D iarrhea.? M USCULOSKELETAL: no J oint pain. U ROLOGY: no B lood in urine. n o F requent urination. ? * Medical History: M gloria. * Surgical History: C -section X 4 , Umbilical Hernia , LT Heel Cyst Remova , [place] Teeth Extracted , Breast Augmentation 12/01/2020. * Hospitalization/Major Diagno stic Procedure: P alpitaions- [facility] ER 07/28/2020, Chest Pain - [facility] 09/19/2024. * Family History: F ather: alive 61 yrs, diagnosed with Hypertension. M other: alive 57 yrs. 1 brother(s) , 1 sister(s) . 1 son(s) , 3 daughter(s) . . * Social History: C URRENT TOBACCO USE: No . C affeine: yes, frequency: daily. Home smoke detector use: yes. Alcohol: no. * Medications: T aking Vitamin D 50 MCG (2000 UT) Tablet 1 tablet Orally Once a day , Taking Vitamin B 12 500 MCG Tablet 1 tablet Orally Once a day , Taking Famotidine 20 MG Tablet 1 tablet at bedtime as needed Orally Once a day , Taking ZyrTEC Allergy 10 MG Tablet 1 tablet Orally Once a day , Taking EpiPen 2-Reinaldo 0.3 MG/0.3ML Solution Auto- injector as directed Injection , Discontinued EpiPen 2-Reinaldo , Discontinued Meclizine HCl 25 MG Tablet 1 tab Orally 3 times a day , Medication List reviewed and reconciled with the patient * Allergies: B enadryl Allergy: cant urinate, Nurtec. Objective: * Vitals: W t: 164.4, Temp: 98.5, BP: 122/70, HR: 88, Nurse: pe, Ht: 64, BMI:28.22. * P ast Orders: L ab:CBC Venipuncture (in house) (Order Date - 06/12/2025) (Collection Date & Time - 06/12/2025) Value Reference Range wbc 5.6 3.5 - 10 lymph 31.5% 15 - 50 mid 6.4% 2 - 15 gran 62.1% 35 - 80 rbc 4.61 3.5 - 5.5 hgb 14.1 11.5 - 16.5 hct 42.3 35 - 55 mcv 91.8 75 - 100 mch 30.6 25 - 35 mchc 33.3 31 - 38 platlet 302 100 - 400 L ab:P-Comprehensive Metabolic Panel (CMP) (Order Date - 06/12/2025) (Collection Date & Time - 06/12/2025 11:54 AM) Result: Normal Value Reference Range A/G Ratio 2.1 1.1-2.5 - Albumin 4.7 3.5-5.3 - g/dL Alkaline Phosphatase 77 35-121 - IU/L ALT (SGPT) 13 <5-47 - IU/L AST (SGOT) 14 <5-40 - IU/L Bilirubin, Total 0.4 <0.2-1.2 - mg/dL BUN 8 6-20 - mg/dL Calcium 9.5 8.6-10.4 - mg/dL Chloride 108 97-108 - mmol/L CO2 22 20-32 - mmol/L Creatinine 0.70 0.50-1.00 - mg/dL Glucose 80 65-99 - mg/dL Potassium 4.3 3.5-5.3 - mmol/L Sodium 144 135-145 - mmol/L Protein 6.9 6.0-8.3 - g/dL eGFR by Creatinine 118 >59 - mL/min/1.73m2 L ab:P-TSH reflex to FT4 (Order Date - 06/12/2025) (Collection Date & Time - 06/12/2025 11:54 AM) Result: Normal Value Reference Range TSH reflex to FT4 2.25 0.43-5.25 - mU/L L ab:P-Vitamin B12 (Order Date - 06/12/2025) (Collection Date & Time - 06/12/2025 11:54 AM) Result: Normal Value Reference Range Vitamin B12 815 143-7924 - pg/mL L ab:P-Magnesium (Order Date - 06/12/2025) (Collection Date & Time - 06/12/2025 11:54 AM) Result: Normal Value Reference Range Magnesium 2.2 1.6-2.4 - mg/dL L ab:P-Vitamin D 25-Hydroxy (Order Date - 06/12/2025) (Collection Date & Time - 06/12/2025 11:54 AM) Result: 17.8 Value Reference Range Vitamin D 25-Hydroxy 17.8 L 30.0-100.0 - ng/mL * Examination: G eneral Examination: General Appearance: N AD, appears healthy, alert, well nourished and hydrated. H EENT: s clera and conjunctiva clear, PERRLA, EOM's with normal ROM.?Oral cavity: u nremarkable. N rory: s upple, normal ROM of C spine. H eart: R RR. L ungs: c lear to auscultation. N eurologic Exam: a lert and oriented, normal cranial nerves II-XII sensory & motor WNL, gait normal; good cognition. Assessment: * Assessment: 1. A cute migraine - G43.909 (Primary) Plan: * Treatment: * Procedure Codes: 1 036F TOBACCO NON-USER, 3074F SYST BP LT 130 MM HG, 3078F DIAST BP < 80 MM HG * Follow Up: p rn * Images: Billing Information: * Visit Code: 98421 Office Visit, Est Pt., Level 3. * Procedure Codes: 1036F TOBACCO NON-USER. 3074F SYST BP LT 130 MM HG. 3078F DIAST BP < 80 MM HG. * Electronic signature of Elsa Salas APRN on 09/22/2025 at 02:25 PM EST Sign off status: Pending * Provider: RIKA Arthur Date: 1 Generated for Jessica haider/Cherrie/Yolanda on: 02:25 PM EST History and Physical Notes * HPI (History of Present Illness) Category Sub-Category Detail Notes Category Not es Neurology headache frontal on the right and perla und the right eye Dizziness head injury insomnia Cardiology Headaches Pt states she is having headaches on right side of face and behind her right eye. Pt states she has tried taking meds and nothing is helping it and it has been going on since Monday Examination Category Sub-Category Detail Notes Category Not es General Examination HEENT: sclera and c onjunctiva clear, PERRLA, EOM's with normal ROM Heart: RRR Lungs: clear to auscultatio n General Appearance: NAD, appears healthy , alert, well nourished and hydrated Neurologic Exam: alert and oriented, normal cranial nerves II-XII sensory & motor WNL, gait normal; good cognition Neck: supple, normal ROM o f C spine Oral cavity: unremarkable
--- OUTSIDE RECORDS SUMMARY | 2025-09-11 08:15 | XMS_ITS ---
[facility] Address [address] [place] [phone] Care Team Providers Care Underwater Welder Name Role Phone Pato Kaur Primary Care Provider Lalita Mendez [phone] Allergies Allergen (clinical drug ingredient) Drug/Non Drug Allergy documented on EMR Reaction Allergy Type Onset Date Status diphenhydramine Benadryl Allergy cant urinate Drug Allergy Active rimegepant Nurtec Unknown Drug Allergy Active Results Component Value Reference Range Notes P-Vitamin B12 Reviewed date:09/12/2025 12:20:53 PM Interpretation: Performing Lab: Notes/Report: Test performed by [facility] [address] [place], [place] [address] [place] , [address], [place] [address] Jeevan Merchant MD, PhD, [facility], [employer] Team Member CLIA: [id number] Vitamin B12 917 290-7573 pg/mL P-T4 Free (thyroxine) Reviewed date:09/12/2025 12:20:53 PM Interpretation: Performing Lab: Notes/Report: Test performed by [facility] [address] [place] [address] , [address], [place] [address] Jeevan Merchant MD, PhD, [facility], [employer] Team Member CLIA: [id number] Thyroxine Free (free T4) 1.05 0.86-1.76 ng/dL P-Thyroid Antibody Panel (TA BS) Reviewed date:09/12/2025 12:20:53 PM Interpretation: Performing Lab: Notes/Report: Test performed by [facility], [address] [place] [address] Jeevan Merchant MD, PhD, [facility], [employer] Team Member CLIA: [id number] Thyroid Peroxidase Antibody <9 <9-34 IU/mL An [...] Interpretation: Performing Lab: Notes/Report: Test performed by [facility] [address] [place] [address] [place] [address] Jeevan Merchant MD, PhD, [facility], [employer] Team Member CLIA: [id number] TSH 1.47 0.43-5.25 mU/L P-Vitamin D 25-Hydroxy Reviewed date:09/12/2025 12:20:53 PM Interpretation: Performing Lab: Notes/Report: Test performed by [facility] [address] [place] [address] [place] [address] Jeevan Merchant MD, PhD, [facility], [employer] Team Member CLIA: [id number] Vitamin D 25-Hydroxy 19.5 30.0-100.0 ng/mL Interpretation [...] W/U Status Risk Notes Problem Thyroid enlargement (1944690) Thyroid enlargement (E04.9) Active confirmed Vital Signs Weight 162.4 lbs 09/11/2025 Blood pressure systolic 112 mm Hg 09/11/20 25 Blood pressure diastolic 70 mm Hg 025 Heart Rate 91 /min 09/11/2025 Height 64 in 09/11/2025 BMI 27.87 kg/m2 09/11/2025 Encounters Encounter Location Date Provider Diagnosis [facility] [address] [facility] [address] [place] [phone] 09/11/2025 Lalita Mendez Thyroid enlargement E04.9 ; [...] Notes * Hussein ENGELOB:1995 (30 yo F)Acc No.[id number]:09/11/2025 Progress Notes Patient: Mariaa SORIA Provider: KIMBERLY Diaz :1995 A ge:30 Y S ex:Female Date:09/11/2025 Address:[address] [place] [address] [id number] Pcp:Pato Kaur Subjective: * Chief Complaints: * [...] Hernia , LT Heel Cyst Remova , [place] Teeth Extracted , Breast Augmentation 12/01/2020. * Hospitalization/Major Diagno stic Procedure: P alpitaions- [facility] ER 07/28/2020, Chest Pain - [place] ER 09/19/2024. * Family History: F ather: [...] 01: 55:29 PM EST > faxed to [facility] Scheduling 2.?Vitamin D deficiency?LAB: P-Vitamin D 25-Hydroxy [...] PM)* Value Reference Range V itamin B12 638 709-3221 - pg/mL * Lalita Mendez 09/11/2025 01:31:57 PM EST >room 6 Lalita Mendez 09/12/2025 12:20:45 PM EST >see TE * Procedure Codes: 3 074F SYST BP LT 130 MM HG, 3078F DIAST BP < 80 MM HG * Follow Up: v ia phone to report test results * Images: Billing Information: * Visit Code: 43135 Office Visit, Est Pt., Level 3. * Procedure Codes: 3074F SYST BP LT 130 MM HG. 3078F DIAST BP < 80 MM HG. * Electronic signature of KIMBERLY Pleitez on 09/22/2025 at 02:26 PM EST Sign off status: Pending * Provider: KIMBERLY Diaz Date: 11/12/2024 Generated for Jessica ng/Cherrie/eTransmitting on: 02:26 PM EST History and Physical [...]
--- NOTE | 2025-09-22 14:15 | US_ITS ---
FINAL REPORT TECHNIQUE: Sonographic images of the thyroid gland were obtained in the longitudinal and transverse planes. CLINICAL HISTORY: THYROID ENLARGEMENT FINDINGS: The right lobe measures 1.5 x 4.1 x 1.3 cm. The right lobe is homogeneous. There are no cystic or solid nodules. The left lobe measures 1.6 x 4.1 x 1.2 cm. The left lobe is homogeneous. There are no cystic or solid nodules. The isthmus measures 3 mm. This is normal. IMPRESSION: Unremarkable ultrasound of the thyroid. No cystic or solid nodules. Reviewed, Interpreted and Dictated by Tamela Gill MD Transcribed by Symone Thompson Authenticated and [facility]
--- OUTSIDE RECORDS SUMMARY | 2025-09-22 14:27 | XMS_ITS | Patient Health Record ---
Author Organization [facility] Address [address] [place] [phone] Care Team Providers Care Electrician Assistant Name Role Phone Pato Kaur Primary Care Provider [phone] Cee Salas Unavailable [phone] Lalita Mendez Unavailable [phone] Allergies Allergen (clinical drug ingredient) Drug/Non Drug [...] Interpretation:Normal Performing Lab: Notes/Report: Test performed by [facility] [address] [place] [address] , [address], [place] [address] Morro Guerra MD, Kier Pleater CLIA: [id number] Vitamin B12 916 316-0078 pg/mL P-Comprehensive Metabolic Pa osmar (CMP) Reviewed date:06/17/2025 03:25:19 PM Interpretation:Normal Performing Lab: Notes/Report: Test performed by [facility] [address] [place] [address] , [address], [place] [address] Morro Guerra MD, Kier Pleater CLIA: [id number] Sodium 144 135-145 mmol/L Potassium 4.3 3.5-5.3 [...] Interpretation:Normal Performing Lab: Notes/Report: Test performed by [facility] [address] [place] [address] , [place] [address] Morro Guerra MD, Kier Pleater CLIA: [id number] Magnesium 2.2 1.6-2.4 mg/dL P-TSH reflex to FT4 Reviewed date:06/17/2025 03:25:19 PM Interpretation:Normal Performing Lab: Notes/Report: Test performed by [facility] [address] [place] [address] , [place] [address] Morro Guerra MD, Kier Pleater CLIA: [id number] TSH reflex to FT4 2.25 0.43-5.25 mU/L P-Vitamin D 25-Hydroxy Reviewed date:06/17/2025 03:25:19 PM Interpretation:17.8 Performing Lab: Notes/Report: Test performed by [facility] [address] [place] [address] , [address], [place] [address] Morro Guerra MD, Kier Pleater CLIA: [id number] Vitamin D 25-Hydroxy 17.8 30.0-100.0 ng/mL Interpretation of Vitamin D 25 OH: < 20 ng/mL - Deficiency 20 - 29 ng/mL - Insufficiency 30 - 100 ng/mL - Sufficiency > 100 ng/mL - Super-therapeutic- toxicity may occur above this level. Clinical correlation required. P-Vitamin D 25-Hydroxy Reviewed date:09/12/2025 12:20:53 PM Interpretation: Performing Lab: Notes/Report: Test performed by [facility] [address] [place], [place] [address] [place] , [place] [address] Jeevan Merchant MD, PhD, [facility], Kier Pleater CLIA: [id number] Vitamin D 25-Hydroxy 19.5 30.0-100.0 ng/mL Interpretation of Vitamin D 25 OH: < 20 ng/mL - Deficiency 20 - 29 ng/mL - Insufficiency 30 - 100 ng/mL - Sufficiency > 100 ng/mL - Super-therapeutic- toxicity may occur above this level. Clinical correlation required. P-TSH Reviewed date:09/12/2025 12:20:53 PM Interpretation: Performing Lab: Notes/Report: Test performed by [facility] [address] [place] [address] , [place] [address] Jeevan Merchant MD, PhD, [facility], Kier Pleater CLIA: [id number] TSH 1.47 0.43-5.25 mU/L P-Thyroid Antibody Panel (TA BS) Reviewed date:09/12/2025 12:20:53 PM Interpretation: Performing Lab: Notes/Report: Test performed by [facility] [address] [place] [address] , [place] [address] Jeevan Merchant MD, PhD, [facility], Kier Pleater CLIA: [id number] Thyroid Peroxidase Antibody <9 <9-34 IU/mL An [...] methods or kits cannot be directly compared. P-T4 Free (thyroxine) Reviewed date:09/12/2025 12:20:53 PM Interpretation: Performing Lab: Notes/Report: Test performed by [facility] [address] [place] [address] , [address], [place] [address] Jeevan Merchant MD, PhD, [facility], Kier Pleater CLIA: [id number] Thyroxine Free (free T4) 1.05 0.86-1.76 ng/dL P-Vitamin B12 Reviewed date:09/12/2025 12:20:53 PM Interpretation: Performing Lab: Notes/Report: Test performed by [facility] [address] [place] [address] , [address], [place] [address] Jeevan Merchant MD, PhD, [facility], Kier Pleater CLIA: [id number] Vitamin B12 855 791-3011 pg/mL Echocardiogram Reviewed date:10/24/2024 08:37:04 AM Interpretation:mild abnormal [...] Referring Provider Last Name Vincent Referring Provider [facility] ctice Referred Provider Vashti Copeland Referred Provider Specialty Cardiovascul ar Disease General Notes Camille Bateman 10/22/19 25 1:16:33 PM > faxed to [facility] CardiologyBhavana Brynn 10/28/2024 11:09:07 AM > 11/05/2024 at 09:00am Referral Priority Routine Diagnosis 1 Right upper quadrant abdominal pain (R10.11) Referral Organization [facility] Referring Provider First Name Cee Referring Provider Last Name Josue Referring Provider [facility] ctice Referred Organization [facility] OP Referred Provider CHIQUI TORRES Referred Address [facility] [address] [address] [place],[id number], Referred Provider Specialty Gastroentero logy General Notes Cee Salas 12/24/2024 11:54:21 AM > seen in ER for severe abd pain; had CT-see results; still with nausea/vomiting with GB signs; doing official RUQ US; on going gI issues as well, Camille Bateman 12/25/2024 01:30:17 PM > faxed to [facility] GI Referral Priority Routine Medications Medication SIG [...] Status Risk Notes Problem Vitamin D deficiency (10990667) Vitamin D deficiency (E55.9) Active confirmed Problem Constipation (55250058) Constipation (K59.00) Active confirmed Problem Memory loss (82145977) Memory loss (R41.3) Active confirmed Problem Generalized anxiety disorder (57764614) Generalized anxiety disorder (F41.1) Active confirmed Problem Thyroid enlargement (3304375) Thyroid enlargement (E04.9) Active confirmed Problem Refractory migraine (625498202) Intractable migraine without status migrainosus, unspecified migraine type (G43.919) Active confirmed Problem Disorder of kidney and/or ureter (297456008) Caliectasis determined by ultrasound of kidney (N28.89) Active confirmed Problem Acute migraine (016128880428147 ) Acute migraine (G43.909) Active confirmed Vital Signs Heart Rate 91 /min 09/11/2025 Blood pressure diastolic 70 mm Hg 09/11/2025 Height 64 in 09/11/2025 Blood pressure systolic 112 mm Hg 09/11/2025 Weight 162.4 lbs 09/11/2025 BMI 27.87 kg/m2 09/11/2025 Encounters Encounter Location Date Provider Diagnosis [facility] [address] [place] [id number] 10/01/2024 R James Vincent Chest pain at rest R07.9 and Palpitations R00.2 [facility] [address] [place] [id number] 12/24/2024 Cee Salas Right upper quadrant abdominal pain R10.11 and Constipation K59.00 [facility] [address] [place] [id number] 06/12/2025 Lalita Crowdy Dizziness R42 ; Non-recurrent acute serous otitis media of left ear H65.02 ; Vitamin D deficiency E55.9 and BMI 27.0-27.9,adult Z68.27 [facility] [address] [place] [id number] 07/07/2025 Cee Salas Acute migraine G43.9 09 [facility] [address] [place] [id number] 09/11/2025 Lalita Jordandy Thyroid enlargement E04.9 ; Vitamin D deficiency E55.9 and Vitamin B12 deficiency E53.8 [facility] [address] [place] [id number] 10/22/2024 R James Vincent Abnormal echocardiog hope R93.1 and Syncope R55 [facility] [address] [place] [id number] 12/25/2024 Cee Salas Right upper quadrant abdominal pain R10.11 [facility] [address] [place] [id number] 01/02/2025 R James Vincent [facility] [address] [place] [id number] 06/13/2025 Lalita Crowdy [facility] [address] [place] [id number] 09/12/2025 Lalita Mendez [facility] [address] [place] [id number] 05/15/2025 R Jaems Kaur Allergic reaction T78.40XA Assessments Encounter Date [...] [employer] [address] [place] [address] [id number] Mariaa Engel Self - patient is the insured Medical (General) History Medical History History ICD Code Migraines Surgical History Surgery Date(Month/Year) X 4 Umbilical Hernia LT Heel Cyst Remova [place] Teeth Extracted Breast Augmentation 12/01/2020 Hospitalization History Reason Date(Month/Year) Chest Pain - [place] ER 09/19/2024 Palpitaions- [facility] ER 07/28/2020
--- OUTSIDE RECORDS SUMMARY | 2025-09-22 14:27 | XMS_ITS | Clinical Summary ---
[facility] Address [address] [place] [address] Care Team Providers Care Barge Loader Name Role Phone Provider, No Known Primary [...] drink = 0.6 oz pur e alcohol) [place] Depression Scale Answer Date Recorded [place] Depression Scale Total 0 11/16/2018 The thought [...] patient's age to complete this topic Insurance [facility] [employer] CROSS Member Subscriber Plan / Payer (Ef fective 2013-Present) Name:Mariaa Engel Relation to Subscriber:Child Name:SUSAN YBARRA Date of :1965 Address: [address] [facility] [address] [place] [address] Payer ID:[id number] (NAIC) Group ID:[id number] Type:Not on file Address: [facility] [address] [id number] Advance Directives * CPR (Attempt to Resuscitate) [...] 8:52 PM 11/22/2016 11:02 PM Care Teams Barge Loader Relationship Specialty Start Date End Date Provider, [place] [address] PCP - General 05/07/15
== END 2025-09-22 23:59 | disposition home or self-care (01) ==
LOC: RAD 14:14
PROVIDERS: PCP Family Medicine; Visit Provider Physician Assistant
DX: E04.9 Nontoxic goiter, unspecified (principal)
CPT/HCPCS: 76536